=== PATIENT | female | born 1990 | race Caucasian/White ===

== ENCOUNTER → 2018-01-19 08:00 | Outpatient (CLI) | payer OTHER, SELFPAY | PROVIDERS: Visit Provider Physician Assistant Surgical | DX: J02.9 Acute pharyngitis, unspecified (principal) | CPT/HCPCS: 87081 ==

== ENCOUNTER → 2018-02-13 16:44 | Outpatient (CLI) | payer OTHER, SELFPAY ==
[2018-02-13 17:59] LABS: Absolute Lymphocyte Count 2.53 X10^3/ul (0.83-4.51); Absolute Neutrophil Count 6.3 X10^3/uL (2.0-7.7); Basophil# 0.03 X10^3/uL; Basophil% 0.3 % (0-1); Eosinophil# 0.05 X10^3/uL; Eosinophils% 0.5 % (0-5); Hematocrit 36.2 % (37-47); Hemoglobin 12.3 g/dl (12.0-15.0); Lymphocyte # 2.53 X10^3/ul (4.0); Lymphocyte % 25.9 % (19-41); Mean Corpuscular Hgb 30.7 pg (27.0-32.0); Mean Corpuscular Volume 90.3 fL (81-99); Mean Platelet Vol. 10.8 fl (6.2-12.0); Monocyte# 0.82 X10^3/uL; Monocyte% 8.4 % (0-10); Neutrophil # 6.29 X10^3/uL (2.7-7.7); Neutrophil % 64.6 % (47-70); Platelet Count 310 K/mm3 (150-450); RBC Distribution Width CV 12.7 % (11.6-14.6); RBC Distribution Width SD 41.1 fl (35.1-43.9); Red Blood Count 4.01 M/mm3 (4.2-5.4); White Blood Count 9.8 K/mm3 (4.4-11.0)
[2018-02-13 18:02] LABS: POSITIVE COUNT NO; POSITIVE DIFFERENTIAL NO; POSITIVE MORPHOLOGY NO
[2018-02-13 19:32] LABS: HIV - WCH Non-Reactive (Nonreactive); Rubella IgG 238.9 IU/mL
[2018-02-20 09:09] LABS: Rapid Plasmin Reagin (RPR) NONREACTIVE (NONREACTIVE)
[2018-02-23 11:57] LABS: HEPATITIS B SURFACE AG Negative (Negative)
== END ==
PROVIDERS: Family Provider Family Medicine; PCP Family Medicine; Visit Provider Obstetrics & Gynecology
DX: Z34.01 Encounter for supervision of normal first pregnancy, first trimester (principal)
CPT/HCPCS: 36415; 85025; 86592; 86703; 86762; 86850; 86900; 87340

== ENCOUNTER → 2018-02-13 18:33 | Outpatient (CLI) | payer OTHER, SELFPAY ==
[2018-02-13 20:36] LABS: Chlamydia Trachomatis by PCR Negative (Negative); Neisserai gonorrhoeae by PCR Negative (Negative); Probe Check PASS; Sample Adequacy Control PASS; Specimen Processing Control PASS
[2018-02-26 13:24] LABS: HPV Reflexed? NOT INDICATED
== END ==
PROVIDERS: Visit Provider Obstetrics & Gynecology
DX: Z34.01 Encounter for supervision of normal first pregnancy, first trimester (principal); Z12.4 Encounter for screening for malignant neoplasm of cervix
CPT/HCPCS: 87086; 87088; 87491; 87591; 88175; G0145

== ENCOUNTER → 2018-03-05 12:45 | Outpatient (CLI) | payer OTHER, SELFPAY | PROVIDERS: Family Provider Family Medicine; PCP Family Medicine | DX: Z36.82 Encounter for antenatal screening for nuchal translucency (principal) | CPT/HCPCS: 36415 ==

== ENCOUNTER → 2018-03-30 12:40 | Outpatient (CLI) | payer OTHER, SELFPAY | PROVIDERS: Family Provider Family Medicine; PCP Family Medicine | DX: Z36.89 Encounter for other specified antenatal screening (principal) | CPT/HCPCS: 36415 ==

== ENCOUNTER → 2018-06-26 09:31 | Outpatient (CLI) | payer OTHER, SELFPAY ==
[2018-06-26 10:30] LABS: Absolute Lymphocyte Count 1.49 X10^3/ul (0.83-4.51); Absolute Neutrophil Count 4.7 X10^3/uL (2.0-7.7); Basophil# 0.01 X10^3/uL; Basophil% 0.1 % (0-1); Eosinophil# 0.07 X10^3/uL; Hematocrit 28.6 % (37-47); Hemoglobin 9.3 g/dl (12.0-15.0); Lymphocyte # 1.49 X10^3/ul (4.0); Lymphocyte % 21.4 % (19-41); Mean Corp Hgb Conc 32.5 g/gl (32-36); Mean Corpuscular Hgb 29.6 pg (27.0-32.0); Mean Corpuscular Volume 91.1 fL (81-99); Mean Platelet Vol. 10.7 fl (6.2-12.0); Monocyte# 0.63 X10^3/uL; Neutrophil # 4.69 X10^3/uL (2.7-7.7); Neutrophil % 67.4 % (47-70); Platelet Count 234 K/mm3 (150-450); RBC Distribution Width CV 13.1 % (11.6-14.6); RBC Distribution Width SD 42.4 fl (35.1-43.9); Red Blood Count 3.14 M/mm3 (4.2-5.4)
[2018-06-26 10:32] LABS: POSITIVE COUNT NO; POSITIVE DIFFERENTIAL NO; POSITIVE MORPHOLOGY NO
[2018-06-26 10:59] LABS: Glucose Challenge Gest 1H 50g 130 mg/dL (70-140)
== END ==
PROVIDERS: Family Provider Family Medicine; PCP Family Medicine; Referring Provider Obstetrics & Gynecology; Visit Provider Obstetrics & Gynecology
DX: Z34.90 Encounter for supervision of normal pregnancy, unspecified, unspecified trimester (principal)
CPT/HCPCS: 36415; 82950; 85025

== ENCOUNTER → 2018-07-29 08:58 | Outpatient (CLI) | payer OTHER, SELFPAY ==
--- NOTE | 2018-07-29 08:59 | US_ITS ---
STUDY: ABDOMINAL ULTRASOUND - RIGHT UPPER QUADRANT REASON FOR VISIT: Female, 28 years old. Right upper quadrant pain. TECHNIQUE: Ultrasound evaluation of the right upper quadrant was performed with real-time and static borja-scale imaging. TECHNICAL QUALITY: Adequate. COMPARISON: None. FINDINGS: Liver: The liver measures 13.3 cm. There is normal echogenicity of the liver. The bile ducts are within normal limits. There is hepatic color flow. The direction of portal flow is hepatopetal. There is no demonstrated mass lesion. Gallbladder: Normal distended gallbladder. The gallbladder wall measures 3 mm. There is a negative sonographic Bush's sign. There is no pericholecystic fluid. There are no gallstones. Common Bile Duct (C.B.D.): The common bile duct measures 3 mm. Pancreas: Normal size of the head, body and tail of the pancreas. There is normal echogenicity of the pancreas. There is no demonstrated pancreatic mass or cyst. Right Kidney: Normal size of the right kidney. The right kidney measures 12.7 cm. Normal renal cortex. There is no demonstrated renal mass or cyst. There is no right hydronephrosis. US/Gallbladder IMPRESSION: Normal right upper quadrant ultrasound examination. Electronically Signed: Irwin Rodriguez, at 23:54 EST Tel , Service support ,
== END ==
PROVIDERS: Family Provider Family Medicine; PCP Family Medicine; Referring Provider Obstetrics & Gynecology; Visit Provider Obstetrics & Gynecology
DX: O26.899 Other specified pregnancy related conditions, unspecified trimester (principal); R10.11 Right upper quadrant pain; Z3A.00 Weeks of gestation of pregnancy not specified
CPT/HCPCS: 76705

== ENCOUNTER 2018-08-15 19:40 | Outpatient (CLI) | payer OTHER, SELFPAY ==
[2018-08-05 10:05] VITALS: BMI 27.6
[2018-08-15 20:16] LABS: Hematocrit 32.1 % (37-47); Hemoglobin 10.3 g/dl (12.0-15.0); Mean Corp Hgb Conc 32.1 g/gl (32-36); Mean Corpuscular Hgb 28.8 pg (27.0-32.0); Mean Corpuscular Volume 89.7 fL (81-99); Mean Platelet Vol. 10.9 fl (6.2-12.0); Platelet Count 281 K/mm3 (150-450); RBC Distribution Width CV 14.3 % (11.6-14.6); RBC Distribution Width SD 45.3 fl (35.1-43.9); Red Blood Count 3.58 M/mm3 (4.2-5.4); White Blood Count 10.4 K/mm3 (4.4-11.0)
[2018-08-15 20:18] LABS: Scan Indicated on CBC? Y/N NO
[2018-08-15 20:25] LABS: Prothrombin Time (Protime)PT. 13.1 SECONDS (11.7-14.9)
[2018-08-15 20:26] LABS: Partial Thromboplast Time 31.7 Seconds (24.1-36.2)
[2018-08-15 20:31] LABS: AST(SGOT) 12 U/L (15-37); Alanine Aminotransfer ALT/SGPT 13 U/L (13-56); Creatinine, Serum 0.51 mg/dL (0.55-1.02); EST Glomerular Filtration Rate 154 mL/min (>60); Est Glom Filt Rate - Afr Amer 186 mL/min (>60); Uric Acid 3.2 mg/dL (2.6-6.0)
[2018-08-15 20:39] VITALS: BMI 28.1
[2018-08-15 20:54] LABS: Protein, Urine (Random) < 6.0 mg/dL (<11.9)
--- NOTE | 2018-08-16 10:31 | OB.TRI.NOTE ---
- Problem List (1) Elevated blood pressure affecting in third trimester, antepartum Status: Acute History of Present Illness Date of Service: 08/16/18 Was patient seen by the physician?: No Reason For Visit: R/O LABOR Date of Service: 08/15/18 History of Present Illness: patient presented with elevated bp at home and some nausea and just hasn't felt right Allergies No Known Allergies Allergy (Verified 08/05/18 10:06) - Pertinent Past Medical History Medical History: Past Medical History (Last Reviewed 08/05/18 @ 10:06 by Mavis Hawley) D & C miscarraige Vertebral artery dissection Laboratory Studies: Laboratory Tests 08/15/18 08/15/18 08/15/18 Range/Units 20:10 20:00 20:00 WBC (4.4-11.0) K/mm3 RBC (4.2-5.4) M/mm3 Hgb (12.0-15.0) g/dl Hct (37-47) % MCV (81-99) fL MCH (27.0-32.0) pg MCHC (32-36) g/gl RDW (11.6-14.6) % RDW Differential (35.1-43.9) fl Plt Count (150-450) K/mm3 MPV (6.2-12.0) fl PT 13.1 (11.7-14.9) SECONDS INR 1.0 APTT 31.7 (24.1-36.2) Seconds Creatinine 0.51 L (0.55-1.02) mg/dL Est GFR (MDRD) Af Amer 186 (>60) mL/min Est GFR (MDRD) Non-Af 154 (>60) mL/min Uric Acid 3.2 (2.6-6.0) mg/dL AST 12 L (15-37) U/L ALT 13 (13-56) U/L U Random Total Protein < 6.0 (<11.9) mg/dL Urine Creatinine 19.40 (NO RANGE EST.) mg/dL Protein/Creatinin Ratio TNP 08/15/18 Range/Units 20:00 WBC 10.4 (4.4-11.0) K/mm3 RBC 3.58 L (4.2-5.4) M/mm3 Hgb 10.3 L (12.0-15.0) g/dl Hct 32.1 L (37-47) % MCV 89.7 (81-99) fL MCH 28.8 (27.0-32.0) pg MCHC 32.1 (32-36) g/gl RDW 14.3 (11.6-14.6) % RDW Differential 45.3 H (35.1-43.9) fl Plt Count 281 (150-450) K/mm3 MPV 10.9 (6.2-12.0) fl PT (11.7-14.9) SECONDS INR APTT (24.1-36.2) Seconds Creatinine (0.55-1.02) mg/dL Est GFR (MDRD) Af Amer (>60) mL/min Est GFR (MDRD) Non-Af (>60) mL/min Uric Acid (2.6-6.0) mg/dL AST (15-37) U/L ALT (13-56) U/L U Random Total Protein (<11.9) mg/dL Urine Creatinine (NO RANGE EST.) mg/dL Protein/Creatinin Ratio NST - FHR Rate Baby A Baseline: 150 Variability:: Moderate Accelerations:: 15 x 15 Decelerations:: None NST Reactive:: Yes FHR Category:: Category I Uterine Activity:: no regular ctx Impression/Plan 28 yo 36 weeks with elevated bp at home- normal here and normal pree labs and negative proteinuria dc home pree precautions fu in office
--- OUTSIDE RECORDS SUMMARY | 2018-10-09 21:48 | XMS RPT_ITS ---
:1990 Author Organization OHIP Support Name Relationship Address Phone RONAL PÉREZLENE Unavailable [address] + [place] [address] TIM SHAU Unavailable [address] + [address] [place] [address] [employer] Unavailable [address] + [place] [address] PÉREZ, TIANA Unavailable [address] + [place] [address] TIM SAHU Unavailable [address] + [address] [place] [address] [employer] Unavailable [address] + [place] [address] PÉREZ, TIANA Unavailable [address] + [place] [address] TIM SAHU Unavailable [address] + [address] [place] [address] [employer] Unavailable [address] + [place] [address] PÉREZ, TIANA Unavailable [address] + [place] [address] TIM SAHU Unavailable [address] + [address] [place] [address] [employer] Unavailable [address] + [place] [address] PÉREZ, TIANA Unavailable [address] + [place] [address] TIM SAHU Unavailable [address] + [address] [place] [address] [employer] Unavailable [address] + [place] [address] PÉREZ, TIANA Unavailable [address] + [place] [address] TIM SAHU Unavailable [address] + [address] [place] [address] [employer] Unavailable [address] + [place] [address] PÉREZ, TIANA Unavailable [address] + [place] [address] TIM SAHU Unavailable [address] + [address] [place] [address] [employer] Unavailable [address] + [place] [address] PÉREZ, TIANA Unavailable [address] + [place] [address] SARAH SAHU Unavailable [address] + [address] [place] [address] [employer] Unavailable [address] + [place] [address] PÉREZ, TIANA Unavailable [address] + [place] [address] SARAH SAHU Unavailable [address] + [address] [place] [address] [employer] Unavailable [address] + [place] [address] PÉREZ, TIANA Unavailable [address] + [place] [address] SARAH SAHU Unavailable [address] + [address] [place] [address] [employer] Unavailable [address] + [place] [address] PÉREZ, TIANA Unavailable [address] + [place] [address] SARAH SAHU Unavailable [address] + [address] [place] [address] [employer] Unavailable [address] + [place] [address] SANIYA SAHU Unavailable [address] + [place] [address] SANIYA SAHU Unavailable [address] + [place] [address] PÉREZ, TIANA Unavailable [address] + [place] [address] SARAH SAHU Unavailable [address] + [address] [place] [address] [employer] Unavailable [address] + [place] [address] PÉREZ, TIANA Unavailable [address] + [place] [address] SARAH SAHU Unavailable [address] + [address] [place] [address] [employer] Unavailable [address] + [place] [address] SANIYA SAHU Unavailable [address] + [place] [address] SANIYA SAHU Unavailable [address] + [place] [address] PÉREZ, TIANA Unavailable [address] + [place] [address] SARAH SAHU Unavailable [address] + [address] [place] [address] [employer] Unavailable [address] + [place] [address] PÉREZ, TIANA Unavailable [address] + [place] [address] SARAH SAHU Unavailable [address] + [address] [place] [address] [employer] Unavailable [address] + [place] [address] PÉREZ, TIANA Unavailable [address] + [place] [address] SARAH SAHU Unavailable [address] + [address] [place] [address] [employer] Unavailable [address] + [place] [address] PÉREZ, TIANA Unavailable [address] + [place] [address] SARAH SAHU Unavailable [address] + [address] [place] [address] [employer] Unavailable [address] + [place] [address] PÉREZ, TIANA Unavailable [address] + [place] [address] SARAH SAHU Unavailable [address] + [address] [place] [address] [employer] Unavailable [address] + [place] [address] PÉREZ, TIANA Unavailable [address] + [place] [address] SARAH SAHU Unavailable [address] + [address] [place] [address] [employer] Unavailable [address] + [place] [address] PÉREZ, TIANA Unavailable [address] + [place] [address] SARAH SAHU Unavailable [address] + [address] [place] [address] [employer] Unavailable [address] + [place] [address] PÉREZ, TIANA Unavailable [address] + [place] [address] SARAH SAHU Unavailable [address] + [address] [place] [address] [employer] Unavailable [address] + [place] [address] PÉREZ, TIANA Unavailable [address] + [place] [address] MICHAEL SAHUSUHA Unavailable [address] + [address] [place] [address] [employer] Unavailable [address] + [place] [address] PÉREZ, TIANA Unavailable [address] + [place] [address] SARAH SAHU Unavailable [address] + [address] [place] [address] [employer] Unavailable [address] + [place] [address] PÉREZ, TIANA Unavailable [address] + [place] [address] SARAH SAHU Unavailable [address] + [address] [place] [address] [employer] Unavailable [address] + [place] [address] PÉREZ, TIANA Unavailable [address] + [place] [address] MICHAEL SAHUSUHA Unavailable [address] + [address] [place] [address] [employer] Unavailable [address] + [place] [address] PÉREZ, TIANA Unavailable [address] + [place] [address] SARAH SAHU Unavailable [address] + [address] [place] [address] [employer] Unavailable [address] + [place] [address] Care Team Providers Name Role Phone YULI JETER Attending Unavailable FLOWER CAAL Referring Unavailable NO PRIMARY CARE, Primary Care Unavailable YULI JETER Attending Unavailable FLOWER CAAL Referring Unavailable NO PRIMARY CARE, Primary Care Unavailable YULI JETER Attending Unavailable FLOWER CAAL Referring Unavailable NO PRIMARY CARE, Primary Care Unavailable BARRERA العراقي Attending Unavailable FLOWER CAAL Referring Unavailable NO PRIMARY CARE, Primary Care Unavailable BARRERA العراقي Attending Unavailable FLOWER CAAL Referring Unavailable NO PRIMARY CARE, Primary Care Unavailable PODLOGARELISA (SUGAR CANE PLANTER MACHINE OPERATOR) Attending Unavailable SHORTY TINEO (ROBOTICS ENGINEER) Attending Unavailable PODLOGELISA WATSON (SUGAR CANE PLANTER MACHINE OPERATOR) Referring Unavailable SHORTY TINEO (ROBOTICS ENGINEER) Attending Unavailable SHORTY TINEO (ROBOTICS ENGINEER) Referring Unavailable KATZAN KAROLINA Brandon Referring Unavailable KATZANKAROLINA Attending Unavailable KATZAN KAROLINA L Referring Unavailable Claudette Valentine Attending Unavailable Cebul III, Jono Referring Unavailable Flower Caal Attending Unavailable Cebul III, Jono Referring Unavailable Cebul III, Jono Primary Care Unavailable Flower Caal Attending Unavailable Cebul III, Jono Referring Unavailable Irwin Delong Attending Unavailable Cebul III, Jono Referring Unavailable Cebul III, Jono Primary Care Unavailable Rey Olson Attending Unavailable Rey Olson Referring Unavailable Thuan Madrid NP-C Attending Unavailable Cebul III, Jono Referring Unavailable Cebul III, Jono Primary Care Unavailable Flower Caal Attending Unavailable Cebul III, Jono Referring Unavailable Cebul III, Jono Primary Care Unavailable Flower Caal Attending Unavailable Cebul III, Jono Referring Unavailable Cebul III, Jono Primary Care Unavailable Flower Caal Attending Unavailable Flower Caal Referring Unavailable Cebul III, Jono Primary Care Unavailable Flower Caal Attending Unavailable Flower Caal Referring Unavailable Marietta Mobley Attending Unavailable Marietta Mobley Referring Unavailable Cebul III, Jono Primary Care Unavailable Claudette Valentine Attending Unavailable Cebul III, Jono Referring Unavailable Cebul III, Jono Primary Care Unavailable Mobley, Marietta Attending Unavailable Mobley, Marietta Referring Unavailable Cebul III, Jono Primary Care Unavailable Marcanthony, Flower Attending Unavailable Cebul III, Jono Referring Unavailable Marcanthony, Flower Attending Unavailable Cebul III, Jono Referring Unavailable Cebul III, Jono Primary Care Unavailable Marcanthony, Flower Attending Unavailable Cebul III, Jono Referring Unavailable Cebul III, Jono Primary Care Unavailable Marcanthony, Flower Attending Unavailable Cebul III, Jono Referring Unavailable Marcanthony, Flower Attending Unavailable Marcanthony, Flower Referring Unavailable Cebul III, Jono Primary Care Unavailable Marcanthony, Flower Attending Unavailable Cebul III, Jono Referring Unavailable [place], Claudette Attending Unavailable Cebul III, Jono Referring Unavailable Marcanthony, Flower Attending Unavailable Marcanthony, Flower Referring Unavailable Cebul III, Jono Primary Care Unavailable Meme, Claudette Attending Unavailable Cebul III, Jono Referring Unavailable Marcanthony, Flower Attending Unavailable Marcanthony, Flower Referring Unavailable Cebul III, Jono Primary Care Unavailable Marcanthony, Flower Attending Unavailable Marcanthony, Flower Referring Unavailable Cebul III, Jono Primary Care Unavailable Marcanthony, Flower Consulting Unavailable Marcanthony, Flower Attending Unavailable Cebul III, Jono Referring Unavailable Marcanthony, Flower Attending Unavailable Cebul III, Jono Primary Care Unavailable Marcanthony, Flower Referring Unavailable PROBLEMS PROBLEMS DATE TYPE CONDITION / CODE ATTENDING STATUS SOURCE 08/21/2018 Unknown I77.74 - Marcanthony, Active [place] 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 / Hospital I77.74(ICD-10) Repository 08/21/2018 Unknown Z36.9 - Encounter Marcanthony, Active [place] for [facility] screening, [facility] unspecified / Repository Z36.9(ICD-10) 08/21/2018 Unknown Z34.90 - Encounter Marcanthony, Active [place] for supervision of [facility] normal , Hospital unspecified, Repository unspecified trimester / Z34.90(ICD-10) 08/21/2018 Unknown Z34.03 - Encounter Marcanthony, Active [place] for supervision of [facility] normal first Hospital , third Repository trimester / Z34.03(ICD-10) 08/21/2018 Unknown G93.0 - Cerebral Marcanthony, Active [place] cysts / [facility] G93.0(ICD-10) Hospital Repository 08/21/2018 Unknown O99.013 - Anemia Marcanthjennifer, Active [place] complicating [facility] , third Hospital trimester / Repository O99.013(ICD-10) 08/21/2018 Unknown Z3A.34 - 34 weeks Daranthjennifer, Active [place] gestation of [facility] / Hospital Z3A.34(ICD-10) Repository 07/09/2018 Unknown Z3A.32 - 32 weeks aDranthjennifer, Active [place] gestation of [facility] / Hospital Z3A.32(ICD-10) Repository 07/09/2018 Unknown Z23 - Encounter Marcanthjennifer, Active [place] for immunization / [facility] Z23(ICD-10) Hospital Repository 03/04/2013 Active Dissection of NA Active [facility] vertebral artery / [facility] [place] I77.74(ICD-10) Repository 05/28/2018 Unknown Z34.02 - Encounter Matthew, Active [place] for supervision of [facility] normal first Hospital , second Repository trimester / Z34.02(ICD-10) 04/09/2018 Unknown Z34.01 - Encounter Matthew, Active [place] for supervision of [facility] normal first Hospital , first Repository trimester / Z34.01(ICD-10) 04/30/2018 Unknown Z36.89 - Encounter Itz, Active [place] for other [facility] specified Hospital Repository screening / Z36.89(ICD-10) 03/17/2018 Unknown Z36.82 - Encounter Itz, Active [place] for [facility] screening for Hospital nuchal Repository translucency / Z36.82(ICD-10) 01/24/2018 Unknown J02.9 - Acute Madrid, Thuan Active [place] pharyngitis, ROBOTICS ENGINEER-C Community unspecified / Hospital J02.9(ICD-10) Repository 01/24/2018 Unknown J06.9 - Acute Madrid, Thaun Active [place] upper respiratory ROBOTICS ENGINEER-C Community infection, Hospital unspecified / Repository J06.9(ICD-10) PROCEDURES PROCEDURES No Procedure Records FoundRESULTS RESULTS PEDIATRIC ASSISTANT OFFICE VISIT Observed: 08/28/2018 Status: F Source: [place] REPORT 9:16 AM [facility] REPOSITORY [facility] [address] [place] [address] OFFICE VISIT Date of Service: 08/28/18 MR#: [id number] Acct: [id number] Name: SANIYA SAHU Rep #: [id number] : 1990 Provider: JAEL Valentine Age/Sex: 28/F Location[place] [facility] [place] Status: Signed Intake Vital Signs08/28/18 Height 5 ft 3 in 08/28/18 Weight: 186 lb 08/28/18 Body Mass Index (BMI) 32.9 08/28/18 Blood Pressure 124/80 H 08/28/18 Body Mass Index (BMI) 28.1 Intake Visit Reasons: 37 weeks Chief Complaint: est ob Ventilation Worker Required: No Is patient in pain?: No Allergies No Known Allergies Allergy (Verified 08/28/18 08:16) Medications lactobacillus combination no.8 3 billion cell capsule 3,000 mmu cells PO QDAY 02/13/18 [History Confirmed 08/28/18] vitamin,calcium,naulosml-wujt-xtdus acid tablet 1 tab PO QDAY 02/13/18 [History Confirmed 08/28/18] aspirin 81 mg chewable tablet 81 mg PO DAILY 05/08/18 [History Confirmed 08/28/18] Last Menstral Period: 12/06/17 Zika: Zika virus screening: Negative : No PFSH PFSH Medical History (Acute) Vertebral artery dissection (Acute) Surgical History H/O dilation and curettage (Acute) Family History Mother Parkinson disease Social History Smoking Status: Never smoker alcohol intake: never substance use type: does not use caffeine: Yes what type of physical activity do you participate in: walking, running frequency: 1-2 times per week seatbelt use: always do you feel safe at home: Yes additional social history: Spouse Tim Pregancy History 2 Elective abortions Hx Para 0 Spontaneous abortions 1 HPI 37 weeks: Details: SANIYA SAHU is a 28 year old who presents for routine OB visit. OB Visit LÁZARO Calculator Estimated Delivery Date 09/12/18 Based on LMP (certain) 12/06/17 Current WG 37w 6d Number 1 Expected Delivery Route/Plan Specific Issue/Plans flu vaccine: given minichart given: yes tdap vaccine: given rhogam: na LARC form signed: declines labor support person: Meño pain management: epidural cut cord/dad catch: yes : yes PP control planned: [] special requests: [] Initial Weight: 155 lb Date Weight BP Urine PrFHR FuHt Pres MoCTX DilationFetal StVisit NoProviderComments E ot v te [place] G Effac lucose ed Visit Notes Visit Date: 08/28/18 No VB, LOF. No reg CTX. OSVALDO Ellington on 08/28/18 Visit Date: 08/21/18 no vb lof good fm no regular ctx Flower Caal MD on 08/21/18 Visit Date: 08/05/18 Doing well. No VB, LOF OSVALDO [place] on 08/05/18 Visit Date: 07/24/18 Doing well. NO VB, LOF. OSVALDO [place] on 07/24/18 Visit Date: 07/09/18 no vb lof good fm no regular ctx Flower Caal MD on 07/09/18 Visit Date: 06/26/18 no vb lof good fm no regualr ctx. will get flu vaccine next time. Flower Caal MD on 06/26/18 Visit Date: 05/28/18 no vb cramping- obtain us results Flower Caal MD on 05/28/18 Visit Date: 05/08/18 no vb lof good fm s/p mfm consult and recommend shortened second stage Flower Caal MD on 05/08/18 Visit Date: 04/09/18 no vb cramping Flower Caal MD on 04/09/18 Visit Date: 03/13/18 Nausea improved. No VB, LOF. OSVALDO [place] on 03/13/18 Visit Date: 02/13/18 No visit notes to display ACOG First Trimester First Trimester: Discussed Diagnostics Diagnostics Labs Hct 32.1 % (37-47) L 08/15/18 Hgb 10.3 g/dl (12.0-15.0) L 08/15/18 Glucose 1 Hr 50 gm 130 mg/dL (70-140) 06/26/18 Details: HIV: Urine Culture: Sequential Screen: NIPT Screen: Results [id number] Office Urine Glucose Negative Last Edit by Mavis Hawley on 08/28/18 08:17 Office Urine Protein Trace Last Edit by Mavis Hawley on 08/28/18 08:17 Assessment AND Plan Problems 1. Encounter for supervision of normal first in third trimester Z34.03 PRR LÁZARO 09/12/18 Meño 2. 37 weeks gestation of Z3A.37 sequential screen negative. carrier screening negative. anatomy scan negative. 3. Anemia affecting in third trimester O99.013 4. Choroid plexus cyst G93.0 5. screening encounter Z36.9 NT/Sequential screen: negative 6. 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 mfm consult- recommend laboring down and limit maternal pushing, proceed with VAVD NT normal 03/05/18 Plan Orders placed: none Reviewed of labor precautions, movement/kick counts ACOG trimester education reviewed and updated See problem list details for updated plan of care Gestational age appropriate handout given RTO: 1 week Orders Orders: Coding Level of Care Code OB Routine Diagnoses Encounter for supervision of normal first in third trimester Z34.03 Normal : normal first Trimester: third trimester 37 weeks gestation of Z3A.37 Weeks of gestation: 37 weeks Anemia affecting in third trimester O99.013 Trimester: third trimester Choroid plexus cyst G93.0 screening encounter Z36.9 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 [place] [address] OFFICE VISIT Date of Service: 08/21/18 MR#: [id number] Acct: [id number] Name: SANIYA SAHU Rep #: [id number] : 1990 Provider: Flower Caal MD Age/Sex: 28/F Location: [facility] [place] Status: Signed Intake Vital Signs08/21/18 Weight: 185 lb 9.6 oz 08/21/18 Body Mass Index (BMI) 28.1 08/21/18 Height 5 ft 3 in 08/21/18 Weight: 162 lb 08/21/18 Body Mass Index (BMI) 28.7 08/21/18 Blood Pressure 104/62 Intake Visit Reasons: 36 weeks Chief Complaint: est ob Ventilation Worker Required: No Is patient in pain?: No Allergies No Known Allergies Allergy (Verified 08/21/18 08:47) Medications lactobacillus combination no.8 3 billion cell capsule 3,000 mmu cells PO QDAY 02/13/18 [History Confirmed 08/21/18] vitamin,calcium,zaoubvqh-wqmj-bzutd acid tablet 1 tab PO QDAY 02/13/18 [History Confirmed 08/21/18] promethazine 12.5 mg tablet 12.5 mg PO Q6H PRN 02/13/18 [History Confirmed 08/21/18] aspirin 81 mg chewable tablet 81 mg PO DAILY 05/08/18 [History Confirmed 08/21/18] Last Menstral Period: 12/06/17 Zika: Zika virus screening: Negative : No PFSH PFSH Medical History (Acute) Vertebral artery dissection (Acute) Surgical History H/O dilation and curettage (Acute) Family History Mother Parkinson disease Social History Smoking Status: Never smoker alcohol intake: never substance use type: does not use caffeine: Yes what type of physical activity do you participate in: walking, running frequency: 1-2 times per week seatbelt use: always do you feel safe at home: Yes additional social history: Spouse Tim Pregancy History 2 Elective abortions Hx Para 0 Spontaneous abortions 1 HPI 36 weeks: Details: SANIYA SAHU is a 28 year old who presents for routine OB visit. OB Visit LÁZARO Calculator Estimated Delivery Date 09/12/18 Based on LMP (certain) 12/06/17 Current WG 36w 6d Number 1 Expected Delivery Route/Plan Specific Issue/Plans flu vaccine: given minichart given: yes tdap vaccine: given rhogam: na LARC form signed: ryan labor support person: Meño pain management: epidural cut cord/dad catch: yes : yes PP control planned: [] special requests: [] Initial Weight: 155 lb Date Weight BP Urine PrFHR FuHt Pres MoCTX DilationFetal StVisit NoProviderComments E ot v te [place] G Effac lucose ed Visit Notes Visit Date: 08/21/18 no vb lof good fm no regular ctx Flower Caal MD on 08/21/18 Visit Date: 08/05/18 Doing well. No VB, LOF OSVALDO Ellington on 08/05/18 Visit Date: 07/24/18 Doing well. NO VB, LOF. OSVALDO Ellington on 07/24/18 Visit Date: 07/09/18 no vb lof good fm no regular ctx lFower Caal MD on 07/09/18 Visit Date: 06/26/18 no vb lof good fm no regualr ctx. will get flu vaccine next time. Flower Caal MD on 06/26/18 Visit Date: 05/28/18 no vb cramping- obtain us results Flower Caal MD on 05/28/18 Visit Date: 05/08/18 no vb lof good fm s/p mfm consult and recommend shortened second stage Flower Caal MD on 05/08/18 Visit Date: 04/09/18 no vb cramping Flower Caal MD on 04/09/18 Visit Date: 03/13/18 Nausea improved. No VB, LOF. OSVALDO Ellington on 03/13/18 Visit Date: 02/13/18 No visit notes to display ACOG First Trimester First Trimester: Discussed Diagnostics Diagnostics Labs Hct 32.1 % (37-47) L 08/15/18 Hgb 10.3 g/dl (12.0-15.0) L 08/15/18 Glucose 1 Hr 50 gm 130 mg/dL (70-140) 06/26/18 Miscellaneous Test 03/30/18 Details: HIV: Urine Culture: Sequential Screen: NIPT Screen: Results [id number] Office Urine Glucose Negative Last Edit by Mavis Hawely on 08/21/18 08:54 Office Urine Protein Negative Last Edit by Mavis Hawley on 08/21/18 08:54 Assessment AND Plan Problems 1. Choroid plexus cyst G93.0 2. Anemia affecting in third trimester O99.013 3. 34 weeks gestation of Z3A.34 sequential screen negative. carrier screening negative. anatomy scan negative. 4. screening encounter Z36.9 NT/Sequential screen: negative 5. 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 Encounter for supervision of normal first in third trimester Z34.03 PRR LÁZARO 09/12/18 Meño Plan movement and labor precautions reviewed. ACOG trimester education reviewed and updated. see problem list details for updated plan management information and see below for orders placed at this visit. [place] appropriate handout given. 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 Performed By: #### M100.1800 #### [facility] [address] [place], [address] PROTEIN+CREATININE Collected: Status: F Source: [place] RATIO,URINE 08/15/2018 8:10 PM [facility] REPOSITORY TYPE CODE TESTS RESULT OUT OF RANGE REFERENCE UNITS LAB L501.1200 NO RANGE EST. mg/dL 19.40 Normal UR CREAT LAB L501.1930 <11.9 mg/dL < 6.0 Normal PROTEIN,UR. RAN. LAB L501.1940 0-200 mg/g CRE Test Normal not performed PROT:CRE RATIO Performed By: #### L501.0900 #### [facility] [address] [place], [address] CBC-COMPLETE BLOOD CNT Collected: 08/15/2018 Status: F Source: [place] NO DIFF 8:00 PM [facility] REPOSITORY TYPE CODE TESTS RESULT OUT OF RANGE REFERENCE UNITS LAB L100.1000 4.4-11.0 K/mm3 Normal WBC 10.4 LAB L100.1200 4.2-5.4 M/mm3 Low RBC 3.58 LAB L100.1300 12.0-15.0 g/dl Low HGB 10.3 LAB L100.1400 37-47 % Low HCT 32.1 LAB L100.1500 81-99 fL Normal MCV 89.7 LAB L100.1600 27.0-32.0 pg Normal MCH 28.8 LAB L100.1700 32-36 g/gl Normal MCHC 32.1 LAB L100.1810 11.6-14.6 % Normal RDW CV 14.3 LAB L100.1820 35.1-43.9 fl High RDW SD 45.3 LAB L100.1900 150-450 K/mm3 Normal PLT 281 LAB L100.2000 6.2-12.0 fl Normal MPV 10.9 Performed By: #### L100.0500 #### [facility] [address] [place], [address] PROTHROMBIN TIME W/INR Collected: 08/15/2018 Status: F Source: [place] 8:00 PM [facility] REPOSITORY TYPE CODE TESTS RESULT OUT OF RANGE REFERENCE UNITS LAB L300.4150 11.7-14.9 SECONDS Normal PROTIME 13.1 LAB L300.4200 Normal INR 1.0 Performed By: #### L300.3900, L300.4310 #### [facility] [address] [place], [address] PARTIAL THROMBOPLAST Collected: 08/15/2018 Status: F Source: [place] TIME 8:00 PM [facility] REPOSITORY TYPE CODE TESTS RESULT OUT OF RANGE REFERENCE UNITS LAB L300.4310 24.1-36.2 Seconds Normal PTT 31.7 Performed By: #### L300.3900, L300.4310 #### [facility] [address] [place], [address] SERUM CREATININE AND Collected: 08/15/2018 Status: F Source: [place] GFR 8:00 PM [facility] REPOSITORY TYPE CODE TESTS RESULT OUT OF RANGE REFERENCE UNITS LAB L501.1100 0.55-1.02 mg/dL Low 0.51 CREAT,SERUM Result Comment: The validity of the calculated GFR AND GFRAA in patients over 70 years has not been determined. Clinical correlation is essential. LAB L501.1110 >60 mL/min Normal EST GFR 154 Result Comment: Non- GFR Calc LAB L501.1115 >60 mL/min Normal EST GFR - AA 186 Result Comment: GFR Calc Performed By: #### L501.1105, L501.1400, L501.4100, L501.4405 #### [facility] [address] [place], [address] URIC ACID Collected: 08/15/2018 Status: F Source: [place] 8:00 PM [facility] REPOSITORY TYPE CODE TESTS RESULT OUT OF RANGE REFERENCE UNITS LAB L501.1400 2.6-6.0 mg/dL Normal URIC 3.2 Result Comment: The drugs N-Acetylcysteine and Metamizole may falsely depress this assay. Performed By: #### L501.1105, L501.1400, L501.4100, L501.4405 #### [facility] [address] [place], [address] AST(SGOT) Collected: 08/15/2018 Status: F Source: [place] 8:00 PM [facility] REPOSITORY TYPE CODE TESTS RESULT OUT OF RANGE REFERENCE UNITS LAB L501.4100 15-37 U/L Low AST 12 Performed By: #### L501.1105, L501.1400, L501.4100, L501.4405 #### [facility] [address] [place], [address] ALANINE AMINOTRANSFERAS Collected: 08/15/2018 Status: F Source: [place] (SGPT) 8:00 PM [facility] REPOSITORY TYPE CODE TESTS RESULT OUT OF RANGE REFERENCE UNITS LAB L501.4405 13-56 U/L Normal ALT 13 Performed By: #### L501.1105, L501.1400, L501.4100, L501.4405 #### [facility] [address] [place], [place], [address] PEDIATRIC ASSISTANT OFFICE VISIT Observed: 08/05/2018 Status: F Source: [place] REPORT 10:17 AM [facility] REPOSITORY [facility] Emergency Department [address] [place] [address] OFFICE VISIT Date of Service: 08/05/18 MR#: [id number] Acct: [id number] Name: SANIYA SAHU Rep #: [id number] : 1990 Provider: JAEL Valentine Age/Sex: 28/F Location[place] [facility] [facility] [place] Status: Signed Intake Vital Signs08/05/18 Height 5 ft 8 in 08/05/18 Weight: 182 lb 08/05/18 Body Mass Index (BMI) 27.6 11/21/18 Blood Pressure 120/72 Intake Visit Reasons: 34 weeks Chief Complaint: est ob Ventilation Worker Required: No Is patient in pain?: No Allergies No Known Allergies Allergy (Verified 08/05/18 10:06) Medications lactobacillus combination no.8 3 billion cell capsule 3,000 mmu cells PO QDAY 02/13/18 [History Confirmed 08/05/18] vitamin,calcium,fotvujjt-dles-ngyud acid tablet 1 tab PO QDAY 02/13/18 [History Confirmed 08/05/18] promethazine 12.5 mg tablet 12.5 mg PO Q6H PRN 02/13/18 [History Confirmed 08/05/18] aspirin 81 mg chewable tablet 81 mg PO DAILY 05/08/18 [History Confirmed 08/05/18] Last Menstral Period: 12/06/17 Zika: Zika virus screening: Negative : No PFSH PFSH Medical History D AND C (Acute) (Acute) Vertebral artery dissection (Acute) Family History Mother Parkinson disease Social History Smoking Status: Never smoker alcohol intake: never substance use type: does not use caffeine: Yes what type of physical activity do you participate in: walking, running frequency: 1-2 times per week seatbelt use: always do you feel safe at home: Yes additional social history: Spouse Tim Pregancy History 2 Elective abortions Hx Para 0 Spontaneous abortions 1 HPI 34 weeks: Details: SANIYA SAHU is a 28 year old who presents for routine OB visit. OB Visit LÁZARO Calculator Estimated Delivery Date 09/12/18 Based on LMP (certain) 12/06/17 Current WG 34w 4d Number 1 Expected Delivery Route/Plan Specific Issue/Plans flu vaccine: given minichart given: yes tdap vaccine: given rhogam: na LARC form signed: ryan labor support person: Meño pain management: epidural cut cord/dad catch: yes : yes PP control planned: [] special requests: [] Initial Weight: 155 lb Date Weight BP Urine PrFHR FuHt Pres MoCTX DilationFetal StVisit NoProviderComments E ot v te GA G Effac lucose ed Visit Notes Visit Date: 08/05/18 Doing well. No VB, LOF OSVALDO Ellington on 08/05/18 Visit Date: 07/24/18 Doing well. NO VB, LOF. OSVALDO Ellington on 07/24/18 Visit Date: 07/09/18 no vb lof good fm no regular ctx Flower Caal MD on 07/09/18 Visit Date: 06/26/18 no vb lof good fm no regualr ctx. will get flu vaccine next time. Flower Caal MD on 06/26/18 Visit Date: 05/28/18 no vb cramping- obtain us results Flower Caal MD on 05/28/18 Visit Date: 05/08/18 no vb lof good fm s/p mfm consult and recommend shortened second stage Flower Caal MD on 05/08/18 Visit Date: 04/09/18 no vb cramping Flower Caal MD on 04/09/18 Visit Date: 03/13/18 Nausea improved. No VB, LOF. OSVALDO Ellington on 03/13/18 Visit Date: 02/13/18 No visit notes to display ACOG First Trimester First Trimester: Discussed Diagnostics Diagnostics Labs Blood Type A POSITIVE 02/13/18 Antibody Screen NEGATIVE 02/13/18 Hct 28.6 % (37-47) L 06/26/18 Hgb 9.3 g/dl (12.0-15.0) L 06/26/18 Rubella IgG Antibody 238.9 IU/mL 02/13/18 RPR NONREACTIVE (NONREACTIVE) 02/13/18 Hep Bs Antigen Negative (Negative) 02/13/18 Chlam trachomat DNA PCR Negative (Negative) 02/13/18 N.gonorrhoeae DNA (PCR) Negative (Negative) 02/13/18 Glucose 1 Hr 50 gm 130 mg/dL (70-140) 06/26/18 Miscellaneous Test 03/30/18 Details: HIV: Urine Culture: Sequential Screen: NIPT Screen: Results [id number] Office Urine Glucose Negative Last Edit by Mavis Hawley on 08/05/18 10:07 Office Urine Protein Negative Last Edit by Mavis Hawley on 08/05/18 10:07 Assessment AND Plan Problems 1. Encounter for supervision of normal first in third trimester Z34.03 PRR LÁZARO 09/12/18 Meño 2. 34 weeks gestation of Z3A.34 sequential screen negative. carrier screening negative. anatomy scan negative. 3. 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 mfm consult NT normal 03/05/18 4. screening encounter Z36.9 NT/Sequential screen: negative 5. Choroid plexus cyst G93.0 6. Anemia affecting in third trimester O99.013 Plan Orders placed: none Reviewed of labor precautions, movement/kick counts ACOG trimester education reviewed and updated See problem list details for updated plan of care Gestational age appropriate handout given RTO: 2 weeks Orders Orders: Coding Level of Care Code OB Routine Diagnoses Encounter for supervision of normal first in third trimester Z34.03 Normal : normal first Trimester: third trimester 34 weeks gestation of Z3A.34 Weeks of gestation: 34 weeks 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 screening encounter Z36.9 Choroid plexus cyst G93.0 Anemia affecting in third trimester O99.013 Trimester: third trimester 08/05/18 1017 <Electronically signed by Claudette RILEY> Date Claudette RILEY Cosigner Signature: Date (if applicable) CC: GALLBLADDER Observed: 07/29/2018 Status: F Source: [place] 8:59 AM [facility] REPOSITORY [facility] Services [address] [place] [address] Gallbladder MR#: [id number] Acct: [id number] Name: RUSSELLSANIYA L Rep #: [id number] : 1990 F 28 From: Irwin Rodriguez MD PCP: Jono Pearson III, MD Status: REG CLI Study: Gallbladder Date of Exam: 07/29/18 Exam# [id number] Ordering Dr: Claudette Valentine STUDY: ABDOMINAL ULTRASOUND - RIGHT UPPER QUADRANT REASON FOR VISIT: Female, 28 years old. Right upper quadrant pain. TECHNIQUE: Ultrasound evaluation of the right upper quadrant was performed with real-time and static borja-scale imaging. TECHNICAL QUALITY: Adequate. COMPARISON: None. FINDINGS: Liver: The liver measures 13.3 cm. There is normal echogenicity of the liver. The bile ducts are within normal limits. There is hepatic color flow. The direction of portal flow is hepatopetal. There is no demonstrated mass lesion. Gallbladder: Normal distended gallbladder. The gallbladder wall measures 3 mm. There is a negative sonographic Bush's sign. There is no pericholecystic fluid. There are no gallstones. Common Bile Duct (C.B.D.): The common bile duct measures 3 mm. Pancreas: Normal size of the head, body and tail of the pancreas. There is normal echogenicity of the pancreas. There is no demonstrated pancreatic mass or cyst. Right Kidney: Normal size of the right kidney. The right kidney measures 12.7 cm. Normal renal cortex. There is no demonstrated renal mass or cyst. There is no right hydronephrosis. US/Gallbladder IMPRESSION: Normal right upper quadrant ultrasound examination. Electronically Signed: Irwin Rodriguez, at 23:54 EST Tel , Service support , CC: JAEL Valentine; Jono Pearson III, MD Station Engineer: Signed PEDIATRIC ASSISTANT OFFICE VISIT Observed: 07/24/2018 Status: F Source: [place] REPORT 8:39 AM [facility] [address] [place] [address] OFFICE VISIT Date of Service: 07/24/18 MR#: [id number] Acct: [id number] Name: SANIYA SAHU #: [id number] : 1990 Provider: JAEL Valentine Age/Sex: 28/F Location: [facility] [place] Status: Signed Intake Vital Signs07/24/18 Height 5 ft 8 in 07/24/18 Weight: 176 lb 8 oz 07/24/18 Body Mass Index (BMI) 26.8 07/24/18 Blood Pressure 118/72 Intake Visit Reasons: 32 weeks Is patient in pain?: No Allergies No Known Allergies Allergy (Verified 07/24/18 08:24) Medications lactobacillus combination no.8 3 billion cell capsule 3,000 mmu cells PO QDAY 02/13/18 [History Confirmed 07/24/18] vitamin,calcium,wchloufm-jsjq-jfskn acid tablet 1 tab PO QDAY 02/13/18 [History Confirmed 07/24/18] promethazine 12.5 mg tablet 12.5 mg PO Q6H PRN 02/13/18 [History Confirmed 07/24/18] aspirin 81 mg chewable tablet 81 mg PO DAILY 05/08/18 [History Confirmed 07/24/18] Last Menstral Period: 12/06/17 Zika: Zika virus screening: Negative : No PFSH PFSH Medical History D AND C (Acute) (Acute) Vertebral artery dissection (Acute) Family History Mother Parkinson disease Social History Smoking Status: Never smoker alcohol intake: never substance use type: does not use caffeine: Yes what type of physical activity do you participate in: walking, running frequency: 1-2 times per week seatbelt use: always do you feel safe at home: Yes additional social history: Spouse Tim Pregancy History 2 Elective abortions Hx Para 0 Spontaneous abortions 1 HPI 32 weeks: Details: SANIYA SAHU is a 28 year old who presents for routine OB visit. OB Visit LÁZARO Calculator Estimated Delivery Date 09/12/18 Based on LMP (certain) 12/06/17 Current WG 32w 6d Number 1 Expected Delivery Route/Plan Specific Issue/Plans flu vaccine: given minichart given: yes tdap vaccine: given rhogam: na LARC form signed: declines labor support person: Meño pain management: epidural cut cord/dad catch: yes : yes PP control planned: [] special requests: [] Initial Weight: 155 lb Date Weight BP Urine PrFHR FuHt Pres MoCTX DilationFetal StVisit NoProviderComments E ot v te GA G Effac lucose ed Visit Notes Visit Date: 07/24/18 Doing well. NO VB, LOF. OSVALDO Ellington on 07/24/18 Visit Date: 07/09/18 no vb lof good fm no regular ctx Flower Caal MD on 07/09/18 Visit Date: 06/26/18 no vb lof good fm no regualr ctx. will get flu vaccine next time. Flower Caal MD on 06/26/18 Visit Date: 05/28/18 no vb cramping- obtain us results Flower Caal MD on 05/28/18 Visit Date: 05/08/18 no vb lof good fm s/p mfm consult and recommend shortened second stage Flower Caal MD on 05/08/18 Visit Date: 04/09/18 no vb cramping Flower Caal MD on 04/09/18 Visit Date: 03/13/18 Nausea improved. No VB, LOF. OSVALDO Ellington on 03/13/18 Visit Date: 02/13/18 No visit notes to display ACOG First Trimester First Trimester: Discussed Diagnostics Diagnostics Labs Blood Type A POSITIVE 02/13/18 Antibody Screen NEGATIVE 02/13/18 Hct 28.6 % (37-47) L 06/26/18 Hgb 9.3 g/dl (12.0-15.0) L 06/26/18 Rubella IgG Antibody 238.9 IU/mL 02/13/18 RPR NONREACTIVE (NONREACTIVE) 02/13/18 Hep Bs Antigen Negative (Negative) 02/13/18 Chlam trachomat DNA PCR Negative (Negative) 02/13/18 N.gonorrhoeae DNA (PCR) Negative (Negative) 02/13/18 Glucose 1 Hr 50 gm 130 mg/dL (70-140) 06/26/18 Miscellaneous Test 03/30/18 Details: HIV: Urine Culture: Sequential Screen: NIPT Screen: Results [id number] Office Urine Glucose Negative Last Edit by Arin Cote on 07/24/18 08:27 Office Urine Protein Negative Last Edit by Arin Cote on 07/24/18 08:27 Assessment AND Plan Problems 1. Encounter for supervision of normal first in third trimester Z34.03 PRR LÁZARO 09/12/18 Meño 2. 32 weeks gestation of Z3A.32 sequential screen negative. carrier screening negative. anatomy scan negative. 3. Anemia affecting in third trimester O99.013 4. Choroid plexus cyst G93.0 5. screening encounter Z36.9 NT/Sequential screen: negative 6. 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 mfm consult NT normal 03/05/18 Plan Orders placed: none Reviewed of labor precautions, movement/kick counts ACOG trimester education reviewed and updated See problem list details for updated plan of care Gestational age appropriate handout given RTO: 2 weeks Orders Orders: Coding Level of Care Code OB Routine Diagnoses Encounter for supervision of normal first in third trimester Z34.03 Normal : normal first Trimester: third trimester 32 weeks gestation of Z3A.32 Weeks of gestation: 32 weeks Anemia affecting in third trimester O99.013 Trimester: third trimester Choroid plexus cyst G93.0 screening encounter Z36.9 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 07/24/18 0839 <Electronically signed by Claudette RILEY> Date Claudette RILEY Cosigner Signature: Date (if applicable) CC: PEDIATRIC ASSISTANT OFFICE VISIT Observed: 07/09/2018 Status: F Source: [place] REPORT 9:51 AM [facility] [address] [place] [address] OFFICE VISIT Date of Service: 07/09/18 MR#: [id number] Acct: [id number] Name: SANIYA SAHU Rep #: [id number] : 1990 Provider: Flower Caal MD Age/Sex: 28/F Location[place] [facility] [place] [facility] [place] Status: Signed with Addenda ADDENDUM by Mavis Hawley on 07/09/18 at 0951 OFFICE PROCEDURES Office Procedure Documentation entered by Mavis Hawley 07/09/18 09:51: Immunizations Boostrix Tdap Performing Provider: Flower Caal MD Administered by: Mavis Hawley on 07/09/18 09:50 Dose Route Admin Location Lot Number Expiration Date NDC Nail Galvanizer 0.5 mL IM Right Arm (SQ) [id number] 08/03/24 16967-841-97 [employer] VIS Given Date VIS Publication Date 07/09/18 11/08/14 Eligibility Eligibility Date Office Meds Flucelvax Quad (PF) Performing Provider: Flower Caal MD Administered by: Mavis Hawley on 07/09/18 09:48 Dose Route Admin Location Lot Number Expiration Date NDC Nail Galvanizer 60 mcg IM left IM [id number] 08/03/24 14310-628-37 SEQIRUS 07/09/18 0951 <Electronically signed by Mavis Hawley > Date Mavis Hawley cc: * Signed ADDENDUM by Mavis Hawley on 07/09/18 at 0950 OFFICE PROCEDURES Office Procedure Documentation entered by Mavis Hawley 07/09/18 09:50: Office Meds Flucelvax Quad (PF) Performing Provider: Flower Caal MD Administered by: Mavis Hawley on 07/09/18 09:48 Dose Route Admin Location Lot Number Expiration Date NDC Nail Galvanizer 60 mcg IM left IM [id number] 08/03/24 40280-846-72 SEQIRUS 07/09/18 0950 <Electronically signed by Mavis Hawley > Date Mavis Hawley cc: * Signed Intake Vital Signs07/09/18 Height 5 ft 8 in 07/09/18 Weight: 175 lb 07/09/18 Body Mass Index (BMI) 26.6 07/09/18 Blood Pressure 120/60 Intake Visit Reasons: 30 weeks Ventilation Worker Required: No Is patient in pain?: No Allergies No Known Allergies Allergy (Verified 07/09/18 08:53) Medications lactobacillus combination no.8 3 billion cell capsule 3,000 mmu cells PO QDAY 02/13/18 [History Confirmed 06/26/18] vitamin,calcium,jprcxvwg-ygyq-xqrew acid tablet 1 tab PO QDAY 02/13/18 [History Confirmed 06/26/18] promethazine 12.5 mg tablet 12.5 mg PO Q6H PRN 02/13/18 [History Confirmed 06/26/18] aspirin 81 mg chewable tablet 81 mg PO DAILY 05/08/18 [History Confirmed 06/26/18] Last Menstral Period: 12/06/17 Zika: Zika virus screening: Negative : No PFSH PFSH Medical History D AND C (Acute) (Acute) Vertebral artery dissection (Acute) Family History Mother Parkinson disease Social History Smoking Status: Never smoker alcohol intake: never substance use type: does not use caffeine: Yes what type of physical activity do you participate in: walking, running frequency: 1-2 times per week seatbelt use: always do you feel safe at home: Yes additional social history: Spouse Tim Pregancy History 2 Elective abortions Hx Para 0 Spontaneous abortions 1 HPI 30 weeks: Details: SANIYA SAHU is a 28 year old who presents for routine OB visit. Urine dip negative. OB Visit LÁZARO Calculator Estimated Delivery Date 09/12/18 Based on LMP (certain) 12/06/17 Current WG 30w 5d Number 1 Expected Delivery Route/Plan Specific Issue/Plans flu vaccine: given minichart given: yes tdap vaccine: given rhogam: na LARC form signed: ryan labor support person: Meño pain management: epidural cut cord/dad catch: yes : yes PP control planned: [] special requests: [] Initial Weight: 155 lb Date Weight BP Urine PrFHR FuHt Pres MoCTX DilationFetal StVisit NoProviderComments E ot v te GA G Effac lucose ed Visit Notes Visit Date: 07/09/18 no vb lof good fm no regular ctx Flower Caal MD on 07/09/18 Visit Date: 06/26/18 no vb lof good fm no regualr ctx. will get flu vaccine next time. Flower Caal MD on 06/26/18 Visit Date: 05/28/18 no vb cramping- obtain us results Flower Caal MD on 05/28/18 Visit Date: 05/08/18 no vb lof good fm s/p mfm consult and recommend shortened second stage Flower Caal MD on 05/08/18 Visit Date: 04/09/18 no vb cramping Flower Caal MD on 04/09/18 Visit Date: 03/13/18 Nausea improved. No VB, LOF. OSVALDO Ellington on 03/13/18 Visit Date: 02/13/18 No visit notes to display ACOG First Trimester First Trimester: Discussed Diagnostics Diagnostics Labs Blood Type A POSITIVE 02/13/18 Antibody Screen NEGATIVE 02/13/18 Hct 28.6 % (37-47) L 06/26/18 Hgb 9.3 g/dl (12.0-15.0) L 06/26/18 Rubella IgG Antibody 238.9 IU/mL 02/13/18 RPR NONREACTIVE (NONREACTIVE) 02/13/18 Hep Bs Antigen Negative (Negative) 02/13/18 Chlam trachomat DNA PCR Negative (Negative) 02/13/18 N.gonorrhoeae DNA (PCR) Negative (Negative) 02/13/18 Glucose 1 Hr 50 gm 130 mg/dL (70-140) 06/26/18 Miscellaneous Test 03/30/18 Details: HIV: Urine Culture: Sequential Screen: NIPT Screen: Assessment AND Plan Problems 1. Choroid plexus cyst G93.0 2. 32 weeks gestation of Z3A.32 sequential screen negative. carrier screening negative. anatomy scan negative. 3. screening encounter Z36.9 NT/Sequential screen: negative 4. 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 mfm consult NT normal 03/05/18 5. Encounter for supervision of normal first in third trimester Z34.03 PRR LÁZARO 09/12/18 Meño 6. Anemia affecting in third trimester O99.013 Plan ACOG trimester education reviewed and updated. see problem list details for updated plan management information and see below for orders placed at this visit. GA appropriate handout given. Coding Level of Care Code OB Routine Diagnoses Choroid plexus cyst G93.0 32 weeks gestation of Z3A.32 Weeks of gestation: 32 weeks screening encounter Z36.9 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 Encounter for supervision of normal first in third trimester Z34.03 Normal : normal first Trimester: third trimester Anemia affecting in third trimester O99.013 Trimester: third trimester 07/09/18 0930 <Electronically signed by Flower Caal MD> Date Flower Caal MD Cosigner Signature: Date (if applicable) CC: CBC W/DIFF, AUTOMATED Collected: 06/26/2018 Status: F Source: [place] 9:49 AM [facility] REPOSITORY TYPE CODE TESTS RESULT OUT OF RANGE REFERENCE UNITS LAB L100.1000 4.4-11.0 K/mm3 Normal WBC 7.0 LAB L100.1200 4.2-5.4 M/mm3 Low RBC 3.14 LAB L100.1300 12.0-15.0 g/dl Low HGB 9.3 LAB L100.1400 37-47 % Low HCT 28.6 LAB L100.1500 81-99 fL Normal MCV 91.1 LAB L100.1600 27.0-32.0 pg Normal MCH 29.6 LAB L100.1700 32-36 g/gl Normal MCHC 32.5 LAB L100.1810 11.6-14.6 % Normal RDW CV 13.1 LAB L100.1820 35.1-43.9 fl Normal RDW SD 42.4 LAB L100.1900 150-450 K/mm3 Normal PLT 234 LAB L100.2000 6.2-12.0 fl Normal MPV 10.7 LAB L100.2100 47-70 % Normal NEUT% 67.4 LAB L100.2200 19-41 % Normal LY% 21.4 LAB L100.2300 0-10 % Normal MONO% 9.0 LAB L100.2400 0-5 % Normal EO% 1.0 LAB L100.2500 0-1 % Normal BASO% 0.1 LAB L100.2550 0.0-0.9 % High IM GRAN % 1.100 Result Comment: IG% - Immature Granulocytes (promyelocytes, myelocytes and metamyelocytes) > 1% indicates that a LEFT SHIFT is Present. LAB L100.2620 2.0-7.7 X10 3/uL Normal Absolute Neut 4.7 LAB L100.2720 0.83-4.51 X10 3/ul Normal Absolute Lymph 1.49 Performed By: #### L100.0100 #### [facility] [address] [place], [address] GLUCOSE CHALLENGE GEST Collected: 06/26/2018 Status: F Source: [place] 1H 50G 9:49 AM [facility] REPOSITORY TYPE CODE TESTS RESULT OUT OF RANGE REFERENCE UNITS LAB L501.0250 70-140 mg/dL Normal GLU GEST 130 50g 1H Performed By: #### L501.0250 #### [facility] [address] [place], [address] PEDIATRIC ASSISTANT OFFICE VISIT Observed: 06/26/2018 Status: F Source: [place] REPORT 9:27 AM [facility] REPOSITORY [place] [facility] Emergency Department [address] [place] [address] OFFICE VISIT Date of Service: 06/26/18 MR#: [id number] Acct: [id number] Name: KATHLEENSANIYA GAMBOA Brandon Rep #: [id number] : 1990 Provider: Flower Caal MD Age/Sex: 28/F Location: [facility] [place] [facility] [place] Status: Signed Intake Vital Signs06/26/18 Height 5 ft 8 in 06/26/18 Weight: 177 lb 06/26/18 Body Mass Index (BMI) 26.9 06/26/18 Blood Pressure 110/52 L Intake Visit Reasons: est ob 28 weeks Chief Complaint: est ob Ventilation Worker Required: No Is patient in pain?: No Allergies No Known Allergies Allergy (Verified 06/26/18 08:58) Medications lactobacillus combination no.8 3 billion cell capsule 3,000 mmu cells PO QDAY 02/13/18 [History Confirmed 06/26/18] vitamin,calcium,roopmcft-mlwr-asbgs acid tablet 1 tab PO QDAY 02/13/18 [History Confirmed 06/26/18] promethazine 12.5 mg tablet 12.5 mg PO Q6H PRN 02/13/18 [History Confirmed 06/26/18] aspirin 81 mg chewable tablet 81 mg PO DAILY 05/08/18 [History Confirmed 06/26/18] Last Menstral Period: 12/06/17 Zika: Zika virus screening: Negative : No PFSH PFSH Medical History D AND C (Acute) (Acute) Vertebral artery dissection (Acute) Family History Mother Parkinson disease Social History Smoking Status: Never smoker alcohol intake: never substance use type: does not use caffeine: Yes what type of physical activity do you participate in: walking, running frequency: 1-2 times per week seatbelt use: always do you feel safe at home: Yes additional social history: Spouse Tim Pregancy History 2 Elective abortions Hx Para 0 Spontaneous abortions 1 HPI est ob 28 weeks: Details: SANIYA SAHU is a 28 year old who presents for routine OB visit. Patient declines flu vaccine OB Visit LÁZARO Calculator Estimated Delivery Date 09/12/18 Based on LMP (certain) 12/06/17 Current WG 28w 6d Number 1 Expected Delivery Route/Plan Specific Issue/Plans flu vaccine: accepting will get next visit minichart given: yes tdap vaccine: given rhogam: [] LARC form signed: [] labor support person: Meño pain management: epidural cut cord/dad catch: yes : yes PP control planned: [] special requests: [] Initial Weight: 155 lb Date Weight BP Urine PrFHR FuHt Pres MoCTX DilationFetal StVisit NoProviderComments E ot v te GA G Effac lucose ed Visit Notes Visit Date: 06/26/18 no vb lof good fm no regualr ctx. will get flu vaccine next time. Flower Caal MD on 06/26/18 Visit Date: 05/28/18 no vb cramping- obtain us results Flower Caal MD on 05/28/18 Visit Date: 05/08/18 no vb lof good fm s/p mfm consult and recommend shortened second stage Flower Caal MD on 05/08/18 Visit Date: 04/09/18 no vb cramping Flower Caal MD on 04/09/18 Visit Date: 03/13/18 Nausea improved. No VB, LOF. OSVALDO Ellington on 03/13/18 Visit Date: 02/13/18 No visit notes to display ACOG First Trimester First Trimester: Discussed Diagnostics Diagnostics Labs Blood Type A POSITIVE 02/13/18 Antibody Screen NEGATIVE 02/13/18 Hct 36.2 % (37-47) L 02/13/18 Hgb 12.3 g/dl (12.0-15.0) 02/13/18 Rubella IgG Antibody 238.9 IU/mL 02/13/18 RPR NONREACTIVE (NONREACTIVE) 02/13/18 Hep Bs Antigen Negative (Negative) 02/13/18 Chlam trachomat DNA PCR Negative (Negative) 02/13/18 N.gonorrhoeae DNA (PCR) Negative (Negative) 02/13/18 Miscellaneous Test 03/30/18 Details: HIV: Urine Culture: Sequential Screen: NIPT Screen: Assessment AND Plan Problems 1. screening encounter Z36.9 NT/Sequential screen: negative 2. 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 mfm consult NT normal 03/05/18 3. Encounter for supervision of normal first in third trimester Z34.03 PRR LÁZARO 09/12/18 Meño 4. Choroid plexus cyst G93.0 5. Z34.90 sequential screen negative. carrier screening negative. anatomy scan negative. Plan movement and labor precautions reviewed. ACOG trimester education reviewed and updated. see problem list details for updated plan management information and see below for orders placed at this visit. GA appropriate handout given. Orders Orders: Coding Level of Care Code OB Routine Diagnoses screening encounter Z36.9 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 Encounter for supervision of normal first in third trimester Z34.03 Normal : normal first Trimester: third trimester Choroid plexus cyst G93.0 Z34.90 06/26/18 0927 <Electronically signed by Flower Caal MD> Date Flower Caal MD Cosigner Signature: Date (if applicable) CC: PROGRESS NOTE Observed: 06/22/2018 Status: COMPLETED Source: [place] 9:00 AM [facility] REPOSITORY DOS: 06/22/2018 [facility] MATERNAL- MEDICINE FOLLOW UP CONSULT Referring/Requesting Provider: Flower Caal MD PCP: [facility] MD CHIEF COMPLAINT: Vertebral artery dissection HISTORY OF PRESENT ILLNESS: Patricia is a 28 y.o. 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 She denies any current symptoms. Saniya saw Dr. Tristan from the [facility] on . Repeat imaging showed difference in the size of the right vertebral artery. There is a dominant left vertebral artery. Per available documentation, Dr. Tristan feels there was a probable right vertebral artery dissection, although congenital hypoplasia could not be ruled out. Saniya was counseled on potential risks of delivery. She denies any current obstetric complaints today and reports normal movement. OB HISTORY: OB History Para Term AB Living 2 0 0 0 1 0 SAB TAB Ectopic Multiple Live Births 1 0 0 0 0 # Outcome Date GA Lbr Gulshan/2nd Weight Sex Delivery Anes PTL Lv 2 Current 1 SAB 12/01/17 9w0d Comments: Pt had D&C PAST MEDICAL HISTORY: Past Medical History: Diagnosis Date Depression History of anxiety Vertebral artery dissection PAST SURGICAL HISTORY: Past Surgical History: Procedure Laterality Date GYNECOLOGICAL SURGERY WISDOM TOOTH EXTRACTION 07/2016 PERTINENT FAMILY HISTORY: Family History Problem Relation Age of Onset No known problems Mother No known problems Father No known problems Brother Stroke Maternal Grandmother Cancer Paternal Grandfather MEDS: Current Outpatient Prescriptions Medication Sig MAGNESIUM PO Take 1 Tab by mouth daily Pt unsure of exact dosage aspirin 81 MG TABS Take 81 mg by mouth daily Vit w/Wy-Lkrnlgqbb-HL (PNV PO) Take 1 Tab by mouth daily Probiotic Product (PROBIOTIC DAILY PO) Take 1 Tab by mouth daily Famotidine (PEPCID PO) Take 10 mg by mouth daily ALLERGY: No Known Allergies REVIEW OF SYSTEMS: As mentioned above and in Subjective, all other Review of Systems reviewed and negative. PHYSICAL EXAM: VITAL SIGNS: BP 104/64 Ht 170.2 cm Wt 79.4 kg (175 lb) LMP 12/06/2017 BMI 27.40 kg/m IMAGING: Estimated weight and amniotic fluid volume are appropriate for gestational age. Previously seen choroid plexus cysts were not visualized on today's scan. LABS: No results found for any previous visit. IMPRESSION: Saniya is a 28 y.o. female at 28w2d with Patient Active Problem List Diagnosis Vertebral artery dissection RECOMMENDATIONS: 1. 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 2. Continue low dose aspirin. 3. Agree with prior MFM recommendation for early epidural and shortened second stage of labor with minimal maternal pushing efforts. section reserved for obstetric indications. 4. Patient counseled on risks/benefits of operative delivery (vacuum vs forceps) and section. At this time, Saniya agrees with our recommendation and comfortable with a trial of labor. She intends to further discuss route of delivery with you at her care appointment on Friday. 5. Follow up with MFM as clinically indicated. The total patient time of the visit was 25 minutes, of which was greater than 50% of the time was spent counseling and coordinating care. Barrera العراقي DO PROGRESS Observed: 05/29/2018 Status: COMPLETED Source: [place] 2:33 PM [facility] HNO ID: [id number] Author: Дмитрий Arcos (Coord) Service: (none) Author Type: Research Type: Progress Notes Filed: 05/29/2018 2:33 PM Note Text: RESEARCH STUDY: PATIENT CONSENTING TO PARTICIPATE DOCUMENTATION Patient/Subject Name: Saniya Sahu : 1990 Description: IRB# [id number] Research Study Title: VIPER: Validity of Proxy Responses Ski Instructor: Linda Weiss, PhD Table Runner: Joselo Arcos Informed Consent obtained on: May 29, 2018 Objective: Improving the Interpretation and Utilization of Patient-Reported Outcome Measurements in Clinical Research The research study?s most current version of the valid informed consent document was reviewed with and explained to the patient. All risks, benefits, alternatives and procedures of the research study were reviewed with and explained to the patient. All of the patient's research study related and medical questions were answered at this time. The patient has read the most current version of the valid informed consent document and expressed understanding of the research study. The patient stated they would like to participate in the research study and signed the most current version of the valid informed consent document. A copy of the signed informed consent document (Informed Consent Version: Version A3, IRB Approval Date: 05/19/2018) was given to the research subject. Participation in this arm of this research study is limited to this encounter. After completion of the study survey assessments post-consent participation is ended. 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 -Date of last stroke event (enter as much detail as possible; if not known, provide estimate): 2013 event (numbness tingling left side of body, blurred vision) Interval History: Patient with history of occasional tension headaches, otherwise denies any current neurological symptoms. Currently 25 weeks and here to consult about safe related to her condition. She was seen here in 2012 - had presented with symptoms of left-sided numbness and dizziness occurring after chiropractic visit. Imaging, including angiogram, demonstrated small right vertebral artery either due to hypoplasia or dissection. Left vert dominant. MRI negative for ischemic change. Repeat imaging done 3-4 months after event, which demonstrated no change. Since that time, she has been neurologically stable, no recurrent events. TCP done this afternoon show reduced MFVs throughout length of right vertebral artery, which is consistent with 2013 imaging. 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 COMPOUNDED PRESCRIPTION Taking 2 probiotic pills a night of 100 mg per capsule DOCOSAHEXANOIC ACID/EPA (FISH OIL ORAL) Take by mouth. ketorolac (TORADOL) 10 mg tablet Take 1 tablet by mouth every 6 hours as needed for Pain. amitriptyline (ELAVIL) 10 mg tablet Take 1 tablet by mouth daily at bedtime. rizatriptan (MAXALT-ASSOCIATE MEDIA DIRECTOR) 10 mg disintegrating tablet May repeat in 2 hours if needed rpvqkvuk-rswv-QA-calcium ANDmins (ONE-A-DAY WOMEN'S PETITES) 9 mg iron -200 mcg tab Take 1 tablet by mouth once daily. No current facility-administered medications for this visit. REVIEW OF SYSTEMS: ALLERGIES Allergen Reactions - Laundry Detergent [* Rash Purex Review of Systems Constitutional Positive for Weight Gain () and Fatigue (normal) Eyes Negative for Change in vison not corrected by glasses Hent Negative for Hearing Loss and Tinnitus Cardiovascular Negative for Chest Pain Respiratory Negative for SOB at rest and SOB with exertion GI Negative for Abdominal Pain Musculoskeletal Negative for Back Pain Heme/Lymph Negative for Prolonged Bleeding and Easy Bruising Neurologic Positive for Headache (occasional) Negative for Memory Problems, Numbness/Tingling, Weakness, Double Vision, Trouble Swallowing and Slurred Speech Psychiatric Negative for Depression and Anxiety Patient's Review of Systems has been reviewed with the patient and updated as appropriate. Examination: BP 125/73 (BP Site: Left Arm, BP Position: Sitting, BP Cuff Size: Regular Adult) Pulse 96 Resp 18 Ht 168.9 cm (5' 6.5) Wt 76.7 kg (169 lb) BMI 26.87 kg/m? General: pleasant, speech fluent and clear without dysarthria Cranial Nerves: III, IV, -EOMI, PERRL, No nystagmus. VII- face is symmetric without evidence of weakness, Motor: Normal muscle tone and bulk. No evidence of atrophy or fasciculations. Strength is normal, 5/5. Cerebellar: No ataxia. Tremor: absent. Normal finger to nose, heel to quintana and rapid alternating movements. Gait examination is normal. The patient had no difficulty with heel, toe or tandem walking. Romberg testing is normal. -Cerebrovascular Categories: Other Symptomatic: right vertebral artery dissection, with probable imaging-negative stroke Impression/ Differential Diagnosis/ Recommendations/ Care Plan: Mrs. Sahu is a 28 yo woman with brainstem symptoms occurring after chiropractic visit, found to have diminutive right vertebral artery. Angiogram suggests there was midcervical reconstitution of right vertebral. Has dominant left vertebral artery, which is providing majority of circulation to posterior fossa. Given clinical symptoms and imaging findings, had probable right vertebral artery dissection, although cannot rule-out congenital hypoplasia. TCP consistent with imaging findings from 2013. Do not feel further imaging necessary at this time. Assuming vertebral dissection, she is at some risk of recurrence in right vert and occurrence in left vertebral artery and so would prefer that she avoid activities that require valsalva maneuvers. Decision on must take into account factors other than neurological ones, and will be made in conjunction with patient and high-risk OB. Recommend aspirin, as well. Discussed with and Mrs. Sahu. Karolina Tristan MD Risk Factor Management Hypertension Blood pressure 125/73, pulse 96, resp. rate 18, height 168.9 cm (5' 6.5), weight 76.7 kg (169 lb). Target blood pressure <140/90, <130/85 for high risk, normal 120/80 Hyperlipidemia Cholesterol values are: Cholesterol, Total (mg/dL) Date Value 02/22/2013 163 Target total cholesterol < 200 LDL Cholesterol (mg/dL) Date Value 02/22/2013 80 Target LDL <100, < 70 for high risk HDL Cholesterol (mg/dL) Date Value 02/22/2013 75 Target HDL >45 for men, >55 for women Triglyceride (mg/dL) Date Value 02/22/2013 41 Target triglycerides <150 Diabetes Hemoglobin A1C (%) Date Value 02/22/2013 5.2 Target <6.5-7% Smoking Social History Marital status: Spouse name: Tim Years of education: Number of children: 0 Occupational History 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 [employer]* Social History Main Topics Smoking status: Never Smoker Smokeless tobacco: Never Used Alcohol use: No Drug use: No Sexual activity: Yes Partners with: Male control/protection: None Other Topics Concern Service No Blood Transfusions No Caffeine Concern No Occupational Exposure No Hobby Hazards No Sleep Concern No Stress Concern No Weight Concern No Special Diet No Back Care Yes Exercise Yes Bike Helmet Yes Seat Belt Yes Self-Exams Yes Social History Narrative 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 Valentina Lexiamado GLENYS Observed: 05/29/2018 Status: COMPLETED Source: [place] 1:40 PM [facility] REPOSITORY Office Visit (NECVS8) SANIYA SAHU ([id number]) 1990 F NFR Date Time Provider Department 05/29/18 1:40 PM KAROLINA TRISTAN NECVS8 During your visit today, we recorded the following information about you: Pulse Respiration Blood pressure Weight 96/minute 18/minute 125/73 76.7 kg Height 1.689 m Karolina Tristan MD 05/30/2018 10:03 PM Signed [facility] PCP: Jono Pearson III MD [address] [place] [address] Saniya Sahu is a 28 year old female who presents for followup evaluation of 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 -Date of last stroke event (enter as much detail as possible; if not known, provide estimate): 2012 event (numbness tingling left side of body, blurred vision) Interval History: Patient with history of occasional tension headaches, otherwise denies any current neurological symptoms. Currently 25 weeks and here to consult about safe related to her condition. She was seen here in 2012 - had presented with symptoms of left-sided numbness and dizziness occurring after chiropractic visit. Imaging, including angiogram, demonstrated small right vertebral artery either due to hypoplasia or dissection. Left vert dominant. MRI negative for ischemic change. Repeat imaging done 3-4 months after event, which demonstrated no change. Since that time, she has been neurologically stable, no recurrent events. TCP done this afternoon show reduced MFVs throughout length of right vertebral artery, which is consistent with 2013 imaging. 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 COMPOUNDED PRESCRIPTION Taking 2 probiotic pills a night of 100 mg per capsule DOCOSAHEXANOIC ACID/EPA (FISH OIL ORAL) Take by mouth. ketorolac (TORADOL) 10 mg tablet Take 1 tablet by mouth every 6 hours as needed for Pain. amitriptyline (ELAVIL) 10 mg tablet Take 1 tablet by mouth daily at bedtime. rizatriptan (MAXALT-ASSOCIATE MEDIA DIRECTOR) 10 mg disintegrating tablet May repeat in 2 hours if needed jdpcuvyi-mnon-QE-calcium ANDmins (ONE-A-DAY WOMEN'S PETITES) 9 mg iron -200 mcg tab Take 1 tablet by mouth once daily. No current facility-administered medications for this visit. REVIEW OF SYSTEMS: ALLERGIES Allergen Reactions - Laundry Detergent [* Rash Purex Review of Systems Constitutional Positive for Weight Gain () and Fatigue (normal) Eyes Negative for Change in vison not corrected by glasses Hent Negative for Hearing Loss and Tinnitus Cardiovascular Negative for Chest Pain Respiratory Negative for SOB at rest and SOB with exertion GI Negative for Abdominal Pain Musculoskeletal Negative for Back Pain Heme/Lymph Negative for Prolonged Bleeding and Easy Bruising Neurologic Positive for Headache (occasional) Negative for Memory Problems, Numbness/Tingling, Weakness, Double Vision, Trouble Swallowing and Slurred Speech Psychiatric Negative for Depression and Anxiety Patient's Review of Systems has been reviewed with the patient and updated as appropriate. Examination: BP 125/73 (BP Site: Left Arm, BP Position: Sitting, BP Cuff Size: Regular Adult) Pulse 96 Resp 18 Ht 168.9 cm (5' 6.5) Wt 76.7 kg (169 lb) BMI 26.87 kg/m? General: pleasant, speech fluent and clear without dysarthria Cranial Nerves: III, IV, -EOMI, PERRL, No nystagmus. VII- face is symmetric without evidence of weakness, Motor: Normal muscle tone and bulk. No evidence of atrophy or fasciculations. Strength is normal, 5/5. Cerebellar: No ataxia. Tremor: absent. Normal finger to nose, heel to quintana and rapid alternating movements. Gait examination is normal. The patient had no difficulty with heel, toe or tandem walking. Romberg testing is normal. -Cerebrovascular Categories: Other Symptomatic: right vertebral artery dissection, with probable imaging-negative stroke Impression/ Differential Diagnosis/ Recommendations/ Care Plan: Mrs. Sahu is a 28 yo woman with brainstem symptoms occurring after chiropractic visit, found to have diminutive right vertebral artery. Angiogram suggests there was midcervical reconstitution of right vertebral. Has dominant left vertebral artery, which is providing majority of circulation to posterior fossa. Given clinical symptoms and imaging findings, had probable right vertebral artery dissection, although cannot rule-out congenital hypoplasia. TCP consistent with imaging findings from 2013. Do not feel further imaging necessary at this time. Assuming vertebral dissection, she is at some risk of recurrence in right vert and occurrence in left vertebral artery and so would prefer that she avoid activities that require valsalva maneuvers. Decision on must take into account factors other than neurological ones, and will be made in conjunction with patient and high-risk OB. Recommend aspirin, as well. Discussed with and Mrs. Sahu. Karolina Tristan MD Risk Factor Management Hypertension Blood pressure 125/73, pulse 96, resp. rate 18, height 168.9 cm (5' 6.5), weight 76.7 kg (169 lb). Target blood pressure <140/90, <130/85 for high risk, normal 120/80 Hyperlipidemia Cholesterol values are: Cholesterol, Total (mg/dL) Date Value 02/22/2013 163 Target total cholesterol < 200 LDL Cholesterol (mg/dL) Date Value 02/22/2013 80 Target LDL <100, < 70 for high risk HDL Cholesterol (mg/dL) Date Value 02/22/2013 75 Target HDL >45 for men, >55 for women Triglyceride (mg/dL) Date Value 02/22/2013 41 Target triglycerides <150 Diabetes Hemoglobin A1C (%) Date Value 02/22/2013 5.2 Target <6.5-7% Smoking Social History Marital status: Spouse name: Tim Years of education: Number of children: 0 Occupational History 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 [employer]* Social History Main Topics Smoking status: Never Smoker Smokeless tobacco: Never Used Alcohol use: No Drug use: No Sexual activity: Yes Partners with: Male control/protection: None Other Topics Concern Service No Blood Transfusions No Caffeine Concern No Occupational Exposure No Hobby Hazards No Sleep Concern No Stress Concern No Weight Concern No Special Diet No Back Care Yes Exercise Yes Bike Helmet Yes Seat Belt Yes Self-Exams Yes Social History Narrative 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 COMPOUNDED PRESCRIPTION Taking 2 probiotic pills a ni* FISH OIL ORAL Take by mouth. KETOROLAC 10 MG TABLET Take 1 tablet by mouth every * AMITRIPTYLINE 10 MG TABLET Take 1 tablet by mouth daily * RIZATRIPTAN 10 MG DISINTEGRAT* May repeat in 2 hours if need* MULTIVITAMIN-IRON 9 MG-FOLIC * Take 1 tablet by mouth once d* Problem List As Of Date 05/29/2018 Noted Resolved Anemia, due to Inadequate Iron Intake [D50.8] INVALID FOR* Anxiety [F41.9] INVALID FOR* Panic anxiety syndrome [F41.0] INVALID FOR* Anxiety with somatization [F41.9, F45.0] INVALID FOR* Vertebral artery dissection [I77.74] INVALID FOR* Intractable episodic headache [R51] INVALID FOR* Encounter Status:Closed by KAROLINA TRISTAN MD on 05/30/18 US TCD POSTERIOR CIRC Observed: 05/29/2018 Status: F Source: [place] 1:17 PM [facility] [place] REPOSITORY * * *Final Report* * * DATE OF EXAM: May 29 2018 1:17PM ALU 1120 - US TCD POSTERIOR CIRC / PROCEDURE REASON: Dissection of vertebral artery * * * * Physician Interpretation * * * * CLINICAL HISTORY: 28 year old female with a history of right vertebral artery dissection PRIORS: MRA 05/25/13, IR 02/22/13 BASILAR mean(cm/sec) 68 PI .70 Insonation from 80 to 116 mm INTRACRANIAL VERTEBRAL ARTERIES LVA mean(cm/sec) 68 PI .73 RVA mean(cm/sec) 38 PI .66 EXTRACRANIAL VERTEBRAL ARTERIES LVA mean(cm/sec) Origin 52 Proximal 37 Mid 42 Distal 49 RVA mean(cm/sec) Origin 18 Proximal 27 Mid 21 Distal 21 LEFT SUBCLAVIAN PSV(cm/sec) Proximal 224 RIGHT SUBCLAVIAN PSV (cm/sec) Proximal 191 Technologist: Melba Phillips RVT RDMS IMPRESSION: The mean flow velocities in the right vertebral artery both intracranially and extracranially are diminished when compared to the left which could be from the reported hypoplastic right vertebral artery with dominant left vertebral artery. The mean flow velocities of the basilar artery and the left intracranial vertebral arteries are within normal limits. The extracranial vertebral arteries are patent and demonstrate antegrade flow bilaterally. The proximal subclavian arteries are unremarkable bilaterally. Station Engineer: MARGRET Transcribe Date/Time: May 29 2018 1:17P Dictated by : ALY SUAREZ MD This examination was interpreted and the report reviewed and electronically signed by: ALY SUAREZ MD on May 29 2018 2:25PM EST [id number] PEDIATRIC ASSISTANT OFFICE VISIT Observed: 05/28/2018 Status: F Source: [place] REPORT 9:44 AM [facility] [address] [place] [address] OFFICE VISIT Date of Service: 05/28/18 MR#: [id number] Acct: [id number] Name: SANIYA SAHU Rep #: [id number] : 1990 Provider: Flower Caal MD Age/Sex: 28/F Location: [facility] [place] [facility] [place] Status: Signed Intake Vital Signs05/28/18 Height 5 ft 8 in 05/28/18 Weight: 169 lb 05/28/18 Body Mass Index (BMI) 25.7 05/28/18 Blood Pressure 122/64 Intake Visit Reasons: est ob 24 weeks Chief Complaint: est ob Ventilation Worker Required: No Is patient in pain?: No Allergies No Known Allergies Allergy (Verified 05/28/18 09:26) Medications lactobacillus combination no.8 3 billion cell capsule 3,000 mmu cells PO QDAY 02/13/18 [History Confirmed 05/28/18] vitamin,calcium,jkxlvkao-kneu-pdfbc acid tablet 1 tab PO QDAY 02/13/18 [History Confirmed 05/28/18] promethazine 12.5 mg tablet 12.5 mg PO Q6H PRN 02/13/18 [History Confirmed 05/28/18] aspirin 81 mg chewable tablet 81 mg PO DAILY 05/08/18 [History Confirmed 05/28/18] Last Menstral Period: 12/06/17 Zika: Zika virus screening: Negative : No PFSH PFSH Medical History D AND C (Acute) (Acute) Vertebral artery dissection (Acute) Family History Mother Parkinson disease Social History Smoking Status: Never smoker alcohol intake: never substance use type: does not use caffeine: Yes what type of physical activity do you participate in: walking, running frequency: 1-2 times per week seatbelt use: always do you feel safe at home: Yes additional social history: Spouse Tim Pregancy History 2 Elective abortions Hx Para 0 Spontaneous abortions 1 HPI est ob 24 weeks: Details: SANIYA SAHU is a 28 year old who presents for routine OB visit. OB Visit LÁZARO Calculator Estimated Delivery Date 09/12/18 Based on LMP (certain) 12/06/17 Current WG 24w 5d Number 1 Expected Delivery Route/Plan Specific Issue/Plans flu vaccine: no minichart given: yes tdap vaccine: [] rhogam: [] LARC form signed: [] labor support person: Meño pain management: epidural cut cord/dad catch: yes : yes PP control planned: [] special requests: [] Initial Weight: 155 lb Date Weight BP Urine PrFHR FuHt Pres MoCTX DilationFetal StVisit NoProviderComments E ot v te GA G Effac lucose ed Visit Notes Visit Date: 05/28/18 no vb cramping- obtain us results Flower Caal MD on 05/28/18 Visit Date: 05/08/18 no vb lof good fm s/p mfm consult and recommend shortened second stage Flower Caal MD on 05/08/18 Visit Date: 04/09/18 no vb cramping Flower Caal MD on 04/09/18 Visit Date: 03/13/18 Nausea improved. No VB, LOF. OSVALDO Ellington on 03/13/18 Visit Date: 02/13/18 No visit notes to display ACOG First Trimester First Trimester: Discussed Diagnostics Diagnostics Labs Blood Type A POSITIVE 02/13/18 Antibody Screen NEGATIVE 02/13/18 Hct 36.2 % (37-47) L 02/13/18 Hgb 12.3 g/dl (12.0-15.0) 02/13/18 Rubella IgG Antibody 238.9 IU/mL 02/13/18 RPR NONREACTIVE (NONREACTIVE) 02/13/18 Hep Bs Antigen Negative (Negative) 02/13/18 Chlam trachomat DNA PCR Negative (Negative) 02/13/18 N.gonorrhoeae DNA (PCR) Negative (Negative) 02/13/18 Miscellaneous Test 03/30/18 Details: HIV: Urine Culture: Sequential Screen: NIPT Screen: Results [id number] Office Urine Glucose Negative Last Edit by Mavis Hawley on 05/28/18 09:29 Office Urine Protein Negative Last Edit by Mavis Hawley on 05/28/18 09:29 Assessment AND Plan Problems 1. screening encounter Z36.9 NT/Sequential screen: negative 2. 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 mfm consult NT normal 03/05/18 3. Encounter for supervision of normal first in second trimester Z34.02 PRR LÁZARO 09/12/18 Meño Plan ACOG trimester education reviewed and updated. see problem list details for updated plan management information and see below for orders placed at this visit. GA appropriate handout given. Orders Orders: Coding Level of Care Code OB Routine Diagnoses screening encounter Z36.9 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 Encounter for supervision of normal first in second trimester Z34.02 Normal : normal first Trimester: second trimester 05/28/18 0944 <Electronically signed by Flower Caal MD> Date Flower Caal MD Cosigner Signature: Date (if applicable) CC: PEDIATRIC ASSISTANT OFFICE VISIT Observed: 05/08/2018 Status: F Source: [place] REPORT 9:10 AM [facility] [address] [place] [address] OFFICE VISIT Date of Service: 05/08/18 MR#: [id number] Acct: [id number] Name: SANIYA SAHU Rep #: [id number] : 1990 Provider: Flower Caal MD Age/Sex: 28/F Location[place] [facility] [facility] [place] Status: Signed Intake Vital Signs05/08/18 Height 5 ft 7 in 05/08/18 Weight: 165 lb 2 oz 05/08/18 Body Mass Index (BMI) 25.8 05/08/18 Blood Pressure 123/78 Intake Visit Reasons: 22 WEEK OB Ventilation Worker Required: No Accompanied by: Is patient in pain?: No Allergies No Known Allergies Allergy (Verified 05/08/18 08:41) Medications lactobacillus combination no.8 3 billion cell capsule 3,000 mmu cells PO QDAY 02/13/18 [History Confirmed 05/08/18] vitamin,calcium,rumxtgkq-pnxh-qvlvf acid tablet 1 tab PO QDAY 02/13/18 [History Confirmed 05/08/18] promethazine 12.5 mg tablet 12.5 mg PO Q6H PRN 02/13/18 [History Confirmed 05/08/18] aspirin 81 mg chewable tablet 81 mg PO DAILY 05/08/18 [History Confirmed 05/08/18] Last Menstral Period: 12/06/17 Zika: Zika virus screening: Negative : No PFSH PFSH Medical History D AND C (Acute) (Acute) Vertebral artery dissection (Acute) Family History Mother Parkinson disease Social History Smoking Status: Never smoker alcohol intake: never substance use type: does not use caffeine: Yes what type of physical activity do you participate in: walking, running frequency: 1-2 times per week seatbelt use: always do you feel safe at home: Yes additional social history: Spouse Tim Pregancy History 2 Elective abortions Hx Para 0 Spontaneous abortions 1 HPI 22 WEEK OB: Details: SANIYA SAHU is a 28 year old who presents for routine OB visit. OB Visit LÁZARO Calculator Estimated Delivery Date 09/12/18 Based on LMP (certain) 12/06/17 Current WG 21w 6d Number 1 Expected Delivery Route/Plan Specific Issue/Plans flu vaccine: no minichart given: yes tdap vaccine: [] rhogam: [] LARC form signed: [] labor support person: Meño pain management: epidural cut cord/dad catch: yes : yes PP control planned: [] special requests: [] Initial Weight: 155 lb Date Weight BP Urine PrFHR FuHt Pres MoCTX DilationFetal StVisit NoProviderComments E ot v te GA G Effac lucose ed Visit Notes Visit Date: 05/08/18 no vb lof good fm s/p mfm consult and recommend shortened second stage Flower Caal MD on 05/08/18 Visit Date: 04/09/18 no vb cramping Flower Caal MD on 04/09/18 Visit Date: 03/13/18 Nausea improved. No VB, LOF. OSVALDO Ellington on 03/13/18 Visit Date: 02/13/18 No visit notes to display ACOG First Trimester First Trimester: Discussed Diagnostics Diagnostics Labs Blood Type A POSITIVE 02/13/18 Antibody Screen NEGATIVE 02/13/18 Hct 36.2 % (37-47) L 02/13/18 Hgb 12.3 g/dl (12.0-15.0) 02/13/18 Rubella IgG Antibody 238.9 IU/mL 02/13/18 RPR NONREACTIVE (NONREACTIVE) 02/13/18 Hep Bs Antigen Negative (Negative) 02/13/18 Chlam trachomat DNA PCR Negative (Negative) 02/13/18 N.gonorrhoeae DNA (PCR) Negative (Negative) 02/13/18 Miscellaneous Test 03/30/18 Details: HIV: Urine Culture: Sequential Screen: NIPT Screen: Results [email or web address] Office Urine Glucose Negative Last Edit by Arin Cote on 05/08/18 08:47 Office Urine Protein Negative Last Edit by Arin Cote on 05/08/18 08:47 Assessment AND Plan Problems 1. Encounter for supervision of normal first in second trimester Z34.02 PRR LÁZARO 09/12/18 Meño 2. 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 mfm consult NT normal 03/05/18 3. screening encounter Z36.9 NT/Sequential screen: negative Plan ACOG trimester education reviewed and updated. see problem list details for updated plan management information and see below for orders placed at this visit. GA appropriate handout given. Orders Orders: Coding Level of Care Code OB Routine Diagnoses Encounter for supervision of normal first in second trimester Z34.02 Normal : normal first Trimester: second trimester 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 screening encounter Z36.9 05/08/18 0910 <Electronically signed by Flower Caal MD> Date Flower Caal MD Cosigner Signature: Date (if applicable) CC: PROGRESS NOTE Observed: 04/20/2018 Status: COMPLETED Source: [place] 2:30 PM [facility] REPOSITORY Maternal Medicine Consult Date of Service: 04/20/2018 Referring Provider: Flower Caal Primary Care Provider: [facility], MD Pj Reason for Consult: Dr. Flower Caal requests that Saniya be evaluated due to personal history of vertebral artery dissection. Zoey is a 28 y.o. at 19 2/7 gestation who presents for evaluation of vertebral artery dissection. Patient was admitted in 2012 for left sided numbness/dysethesias at the [facility]. Patient had a thorough evaluation including a cerebral angiogram, CT, MRI, Carotid Dopplers and Echo. Angiogram suggested dissection of right vertbral artery with a short segment occlusion in the distal right. She was continued on baby aspirin and told to avoid roller coasters, contact sports and neck manipulations. She has not had further neurologic follow-up nor evaluation of whether there was recanalization of the vessel. Patient denies current symptoms and has been off low dose aspirin for several years now. She was told telephonically that she did not have contraindications for . However, mode of delivery or specifics of related concerns were not discussed. During patient's visit, she had an anatomic survey. This showed choroid plexus cysts on the right side. Otherwise, no other anomalies were noted. Obstetric History T0 L0 SAB1 TAB0 Ectopic0 Multiple0 Live Births0 # Outcome Date GA Lbr Gulshan/2nd Weight Sex Delivery Anes PTL Lv 2 Current 1 SAB PMedHx: Vertebral artery dissection (Right) - dx 2012 PSurgHx: D&C FMHx: Mother with Parkinson's. Denies diabetes, hypertension, defects, genetic disorders or clotting disorders Meds: PNV, Probiotics All: NKDA Social: Denies alcohol, drug and tobacco use. Review of Systems All other systems reviewed and are negative. Physical Exam Vitals: 04/20/18 1344 BP: 120/70 Weight: 73 kg (161 lb) FHT: Positive Presentation: Transverse Ultrasound Results: 1. Single living intrauterine with biometry consistent with clinical dates. 2. Anatomic survey was adequately visualized. 3. Choroid plexus cysts were visualized. The rest of the anatomy appeared normal. 4. Amniotic fluid appeared normal. 5. Placenta is normal without evidence of previa. 6. Transvaginal cervical length to evaluate for risk for labor was performed and appeared normal, 3.64 cm. Impression: Saniya is a 28 y.o. female who is at 19w2d gestation. 1. History of vertebral artery dissection. In more than half of cases, vertebral artery dissection results in complete recanalization within 6 months of symptoms. Recurrence risk has been reported in 0 to 13% of case, but is likely at the low end of this range. Approximately 90% of patients continue to have some symptoms. The patient is currently void of symptoms. However, she is concerned of personal risks during . I spoke with Dr. Karolina Carrasco, Neurologist at the [facility]. We discussed follow-up for Saniya in order to re-evaluate vertebral artery bilaterally to determine if concern is still present. As patient is , Dr. Carrasco preferred evaluation with transcranial Doppler (TCD) rather than MRA. We also discussed mode of delivery. Dr. Carrasco agreed that shortened second stage is recommended. She did not feel anticoagulation was necessary at this time except for low-dose aspirin. We did not discuss regional anesthesia. However, I do not feel this should be contraindicated. I discussed with patient to confer with Dr. Carrasco when she sees her. 2. Choroid plexus cysts. I discussed with the patient that choroid plexus cysts are seen in 1% to 2% of all fetuses. In those fetuses with this finding there is a less than 1% risk of chromosomal abnormality. If there were other structural abnormalities the risk of chromosomal abnormality would be increased. I did not see any other structural abnormalities however, ultrasound cannot exclude all subtle defects nor can ultrasound exclude chromosomal abnormalities. We discussed the patient's sequential screen results, which showed corrected Trisomy 18 risk of 1:10,000 and Trisomy 21 to 1:9120. We did discuss cell free DNA. The patient declined further testing or further genetic counseling at thistime. Recommendations: 1. Follow-up with Neurology to evaluate vertebral artery bilaterally, specifically Transcranial Doppler. Will need to also discuss epidural use during labor. 2. Follow-up with MFM after Neurology evaluation to discuss plan of care. This was scheduled on June 22. 3. Restart low dose aspirin. 4. Growth ultrasound with follow-up visit. 5. Shortened second stage with Operative vaginal delivery. The total patient time of the visit was 30 minutes, of which greater than 50% of the time was spent counseling and coordinating care. PEDIATRIC ASSISTANT OFFICE VISIT Observed: 04/09/2018 Status: F Source: [place] REPORT 4:32 PM [facility] [address] [place] [address] OFFICE VISIT Date of Service: 04/09/18 MR#: [id number] Acct: [id number] Name: SANIYA SAHU Rep #: [id number] : 1990 Provider: Flower Caal MD Age/Sex: 28/F Location: [facility] [place] Status: Signed Intake Vital Signs04/09/18 Height 5 ft 7 in 04/09/18 Weight: 163 lb 6 oz 04/09/18 Body Mass Index (BMI) 25.5 04/09/18 Blood Pressure 130/75 Intake Visit Reasons: 18 WEEK OB Chief Complaint: est ob Ventilation Worker Required: No Is patient in pain?: No Allergies No Known Allergies Allergy (Verified 04/09/18 16:00) Medications lactobacillus combination no.8 3 billion cell capsule 3,000 mmu cells PO QDAY 02/13/18 [History Confirmed 04/09/18] vitamin,calcium,gakvxjta-eaxy-ekdfl acid tablet 1 tab PO QDAY 02/13/18 [History Confirmed 04/09/18] promethazine 12.5 mg tablet 12.5 mg PO Q6H PRN 02/13/18 [History Confirmed 04/09/18] Last Menstral Period: 12/06/17 Zika: Zika virus screening: Negative : No PFSH PFSH Medical History D AND C (Acute) (Acute) Vertebral artery dissection (Acute) Family History Mother Parkinson disease Social History Smoking Status: Never smoker alcohol intake: never substance use type: does not use caffeine: Yes what type of physical activity do you participate in: walking, running frequency: 1-2 times per week seatbelt use: always do you feel safe at home: Yes additional social history: Spouse Tim Pregancy History 2 Elective abortions Hx Para 0 Spontaneous abortions 1 HPI 18 WEEK OB: Details: SANIYA SAHU is a 28 year old who presents for routine OB visit. OB Visit LÁZARO Calculator Estimated Delivery Date 09/12/18 Based on LMP (certain) 12/06/17 Current WG 17w 5d Number 1 Expected Delivery Route/Plan Specific Issue/Plans flu vaccine: no minichart given: yes tdap vaccine: [] rhogam: [] LARC form signed: [] labor support person: Meño pain management: epidural cut cord/dad catch: yes : yes PP control planned: [] special requests: [] Initial Weight: Not Recorded Date Weight BP Urine PrFHR FuHt Pres MoCTX DilationFetal StVisit NoProviderComments E ot v te GA G Effac lucose ed Visit Notes Visit Date: 04/09/18 no vb cramping Flower Caal MD on 04/09/18 Visit Date: 03/13/18 Nausea improved. No VB, LOF. OSVALDO Ellington on 03/13/18 Visit Date: 02/13/18 No visit notes to display ACOG First Trimester First Trimester: Discussed Diagnostics Diagnostics Labs Blood Type A POSITIVE 02/13/18 Antibody Screen NEGATIVE 02/13/18 Hct 36.2 % (37-47) L 02/13/18 Hgb 12.3 g/dl (12.0-15.0) 02/13/18 Rubella IgG Antibody 238.9 IU/mL 02/13/18 RPR NONREACTIVE (NONREACTIVE) 02/13/18 Hep Bs Antigen Negative (Negative) 02/13/18 Chlam trachomat DNA PCR Negative (Negative) 02/13/18 N.gonorrhoeae DNA (PCR) Negative (Negative) 02/13/18 Miscellaneous Test Pending 03/30/18 Details: HIV: Urine Culture: Sequential Screen: NIPT Screen: Results [id number] Office Urine Glucose Negative Last Edit by Mavis Hawley on 04/09/18 16:02 Office Urine Protein Negative Last Edit by Mavis Hawley on 04/09/18 16:02 Assessment AND Plan Problems 1. Encounter for supervision of normal first in first trimester Z34.01 PRR LÁZARO 09/12/18 Meño 2. 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 mfm consult NT normal 03/05/18 3. screening encounter Z36.9 NT/Sequential screen: negative Plan ACOG trimester education reviewed and updated. see problem list details for updated plan management information and see below for orders placed at this visit. [place] appropriate handout given.anatomy us ordered with mfm consult Orders Orders: Coding Level of Care Code OB Routine Diagnoses Encounter for supervision of normal first in first trimester Z34.01 Normal : normal first Trimester: first trimester 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 screening encounter Z36.9 04/09/18 1632 <Electronically signed by Flower Caal MD> Date Flower Caal MD Cosigner Signature: Date (if applicable) CC: MISCELLANEOUS LAB Collected: 03/30/2018 Status: F Source: [place] PROCEDURE 12:45 PM [facility] REPOSITORY Order Comment: Test(s) Ordered: SEQUENTIAL SCREENING GREEN BOX SEND OUT TYPE CODE TESTS RESULT OUT OF RANGE REFERENCE UNITS LAB L801.1541 Normal [facility] LAB TEST Result Comment: Sent directly to testing facility per ordering physician. 04/27/18 0916 MYOUNG Performed By: #### L801.1541 #### [facility] [address] [place], [address] PEDIATRIC ASSISTANT OFFICE VISIT Observed: 03/13/2018 Status: F Source: [place] REPORT 8:47 AM [facility] REPOSITORY [facility] [address] [place] [address] OFFICE VISIT Date of Service: 03/13/18 MR#: [id number] Acct: [id number] Name: SANIYA SAHU Rep #: [id number] : 1990 Provider: JAEL Valentine Age/Sex: 28/F Location: [facility] [place] Status: Signed Intake Vital Signs03/13/18 Height 5 ft 7 in 03/13/18 Weight: 158 lb 2 oz 03/13/18 Body Mass Index (BMI) 24.7 03/13/18 Blood Pressure 123/80 Intake Visit Reasons: 14 WEEK OB Chief Complaint: est ob Ventilation Worker Required: No Is patient in pain?: No Allergies No Known Allergies Allergy (Verified 03/13/18 08:27) Medications lactobacillus combination no.8 3 billion cell capsule 3,000 mmu cells PO QDAY 02/13/18 [History Confirmed 03/13/18] vitamin,calcium,jfxflync-ykzu-jftub acid tablet 1 tab PO QDAY 02/13/18 [History Confirmed 03/13/18] promethazine 12.5 mg tablet 12.5 mg PO Q6H PRN 02/13/18 [History Confirmed 03/13/18] Last Menstral Period: 12/06/17 Zika: Zika virus screening: Negative : No PFSH PFSH Medical History D AND C (Acute) (Acute) Vertebral artery dissection (Acute) Family History Mother Parkinson disease Social History Smoking Status: Never smoker alcohol intake: never substance use type: does not use caffeine: Yes what type of physical activity do you participate in: walking, running frequency: 1-2 times per week seatbelt use: always do you feel safe at home: Yes additional social history: Spouse Tim Pregancy History 2 Elective abortions Hx Para 0 Spontaneous abortions 1 HPI 14 WEEK OB: Details: SANIYA SAHU is a 28 year old who presents for routine OB visit. OB Visit LÁZARO Calculator Estimated Delivery Date 09/12/18 Based on LMP (certain) 12/06/17 Current WG 13w 6d Number 1 Expected Delivery Route/Plan Specific Issue/Plans flu vaccine: no minichart given: yes tdap vaccine: [] rhogam: [] LARC form signed: [] labor support person: Meño pain management: epidural cut cord/dad catch: yes : yes PP control planned: [] special requests: [] Initial Weight: Not Recorded Date Weight BP Urine PFHR FuHt Pres MCTX DilatioFetal SVisit NProvideComment rot ov n t ote r s EGA Ef Gluco faced se 02/14/1156 lb 127/81 175 8 9w 6d Visit Notes Visit Date: 03/13/18 Nausea improved. No VB, LOF. OSVALDO Ellington on 03/13/18 Visit Date: 02/13/18 No visit notes to display ACOG First Trimester First Trimester: Discussed Diagnostics Diagnostics Labs Blood Type A POSITIVE 02/13/18 Antibody Screen NEGATIVE 02/13/18 Hct 36.2 % (37-47) L 02/13/18 Hgb 12.3 g/dl (12.0-15.0) 02/13/18 Rubella IgG Antibody 238.9 IU/mL 02/13/18 RPR NONREACTIVE (NONREACTIVE) 02/13/18 Hep Bs Antigen Negative (Negative) 02/13/18 Chlam trachomat DNA PCR Negative (Negative) 02/13/18 N.gonorrhoeae DNA (PCR) Negative (Negative) 02/13/18 Miscellaneous Test 03/05/18 Details: HIV: Urine Culture: Sequential Screen: NIPT Screen: Results [id number] Office Urine Glucose Negative Last Edit by Mavis Hawley on 03/13/18 08:44 Office Urine Protein Negative Last Edit by Mavis Hawley on 03/13/18 08:44 Assessment AND Plan Problems 1. Encounter for supervision of normal first in first trimester Z34.01 PRR LÁZARO 09/12/18 Meño 2. 13 weeks gestation of Z3A.13 Plan Orders placed: none First Seq screen completed with normal NT Reviewed of labor precautions, movement/kick counts ACOG trimester education reviewed and updated See problem list details for updated plan of care Gestational age appropriate handout given RTO: 4 weeks Orders Orders: Coding Level of Care Code OB Routine Diagnoses Encounter for supervision of normal first in first trimester Z34.01 Normal : normal first Trimester: first trimester 13 weeks gestation of Z3A.13 03/13/18 0847 <Electronically signed by Claudette RILEY> Date Claudette PAIGEC Cosigner Signature: Date (if applicable) CC: MISCELLANEOUS LAB Collected: 03/05/2018 Status: F Source: [place] PROCEDURE 12:50 PM [facility] REPOSITORY Order Comment: Test(s) Ordered: SEQUENTIAL SCREENING SEND OUT GREEN BOX TYPE CODE TESTS RESULT OUT OF RANGE REFERENCE UNITS LAB L801.1541 Normal [facility] LAB TEST Result Comment: Sent directly to testing facility per ordering physician. 03/10/18 1522 MYOUNG Performed By: #### L801.1541 #### [facility] [address] [place], [address] CBC W/DIFF, AUTOMATED Collected: 02/13/2018 Status: F Source: [place] 4:49 PM [facility] REPOSITORY TYPE CODE TESTS RESULT OUT OF RANGE REFERENCE UNITS LAB L100.1000 4.4-11.0 K/mm3 Normal WBC 9.8 LAB L100.1200 4.2-5.4 M/mm3 Low RBC 4.01 LAB L100.1300 12.0-15.0 g/dl Normal HGB 12.3 LAB L100.1400 37-47 % Low HCT 36.2 LAB L100.1500 81-99 fL Normal MCV 90.3 LAB L100.1600 27.0-32.0 pg Normal MCH 30.7 LAB L100.1700 32-36 g/gl Normal MCHC 34.0 LAB L100.1810 11.6-14.6 % Normal RDW CV 12.7 LAB L100.1820 35.1-43.9 fl Normal RDW SD 41.1 LAB L100.1900 150-450 K/mm3 Normal PLT 310 LAB L100.2000 6.2-12.0 fl Normal MPV 10.8 LAB L100.2100 47-70 % Normal NEUT% 64.6 LAB L100.2200 19-41 % Normal LY% 25.9 LAB L100.2300 0-10 % Normal MONO% 8.4 LAB L100.2400 0-5 % Normal EO% 0.5 LAB L100.2500 0-1 % Normal BASO% 0.3 LAB L100.2550 0.0-0.9 % Normal IM GRAN % 0.300 Result Comment: IG% - Immature Granulocytes (promyelocytes, myelocytes and metamyelocytes) > 1% indicates that a LEFT SHIFT is Present. LAB L100.2620 2.0-7.7 X10 3/uL Normal Absolute Neut 6.3 LAB L100.2720 0.83-4.51 X10 3/ul Normal Absolute Lymph 2.53 Performed By: #### L100.0100 #### [facility] [address] [place], [address] TYPE AND SCREEN Collected: 02/13/2018 Status: F Source: [place] 4:49 PM [facility] REPOSITORY Order Comment: Reason for Type AND Screen/Red Cells: TYPE CODE TESTS RESULT OUT OF RANGE REFERENCE UNITS LAB B10.0800 A Normal BLOOD TYPE GEL POSITIVE LAB B100.4000 Normal Antibody NEGATIVE Screen Performed By: #### B101.7450 #### [facility] [address] [place], [place], [id number] #### L3100.0390 #### [facility] (refer to report for specific site) refer to report for address and phone number HEPATITIS B SURFACE Collected: 02/13/2018 Status: F Source: [place] AG 4:49 PM [facility] REPOSITORY TYPE CODE TESTS RESULT OUT OF RANGE REFERENCE UNITS LAB L3100.0400 Negative Normal HB Negative SURF AG Result Comment: Performed at: [facility] [id number] Slackline Operator: Rc Anguiano PhD, Phone: [phone] Performed By: #### B101.7450 #### [facility] [place], [address] #### L3100.0390 #### [facility] (refer to report for specific site) refer to report for address and phone number RUBELLA IGG Collected: 02/13/2018 Status: F Source: [place] 4:49 PM [facility] REPOSITORY TYPE CODE TESTS RESULT OUT OF RANGE REFERENCE UNITS LAB L509.4000 IU/mL Normal Rubella IgG 238.9 Result Comment: Antibody results Interpretation of Immune Status < 5 IU/ml Presumed Non-immune 5 - < 10 IU/ml Equivocal > or = 10 IU/ml Presumed Immune Performed By: #### L509.4000, L3890.6005, L700.5000 #### [facility] [place] [facility] [address] HIV - [facility] Collected: 02/13/2018 Status: F Source: [place] 4:49 PM [facility] REPOSITORY TYPE CODE TESTS RESULT OUT OF RANGE REFERENCE UNITS LAB L3890.6005 Nonreactive Normal HIV - [facility] Non-Reactive Performed By: #### L509.4000, L3890.6005, L700.5000 #### [facility] [address] [place], [place], [id number] RAPID PLASMIN REAGIN Collected: 02/13/2018 Status: F Source: [place] (RPR) 4:49 PM [facility] REPOSITORY TYPE CODE TESTS RESULT OUT OF REFERENCE UNITS RANGE LAB L700.5000 NONREACTIVE NONREACTIVE Normal RPR Performed By: #### L509.4000, L3890.6005, L700.5000 #### [facility] [place], [address] CT/NG [facility] BY PCR Collected: 02/13/2018 Status: F Source: [place] 4:45 PM [facility] REPOSITORY TYPE CODE TESTS RESULT OUT OF RANGE REFERENCE UNITS LAB L8200.2100 Negative Normal Chlam Negative Trac PCR LAB L8200.2200 Negative Normal NG by Negative PCR Performed By: #### L8200.2000 #### [facility] [address] [place], [address] Observed: 02/13/2018 Status: F Source: [place] CULTURE, URINE 4:45 PM [facility] REPOSITORY RESULT(S) PREVIOUSLY REPORTED ON MANUAL REQUISITION DURING DOWNTIME. Urine Culture ORGANISM 1: Mixed Gram Positive Organisms [place] Count 1000-10,000 MIX CULTURE Mixed contaminants. Submit a new specimen if indicated. Performed By: #### M100.0650 #### [facility] [address] [place], [address] PAP I-G W/RFX Collected: 02/13/2018 Status: F Source: [place] HRHPV-APTIMA 4:45 PM [facility] REPOSITORY Order Comment: CYTOLOGY INFORMATION: - CLINICAL INFORMATION: HYSTERECTOMY - DATE LMP/MENOPAUSE: LMP - COLLECTION VIAL: Thin Prep Vial - RECEPTION SPECIALIST SOURCE: CERVICAL - COLLECTION TECHNIQUE: OTHER Specimen Comment: [id number] Specimen Comment: No. of containers..01 ThinPrep Vial TYPE CODE TESTS RESULT OUT OF RANGE REFERENCE UNITS LAB L7400.0800 . Normal DIAGN Comment Result Comment: NEGATIVE FOR INTRAEPITHELIAL LESION AND MALIGNANCY. LAB L7400.0900 . Normal ADEQ Comment Result Comment: Satisfactory for evaluation. Endocervical and/or squamous metaplastic cells (endocervical component) are present. LAB L7400.1400 . Normal PERFORM Comment Result Comment: Jessica Zamora Auto Air Conditioning Installer (ASCP) LAB L7400.2575 . Normal TEST METHOD Comment Result Comment: This liquid based ThinPrep(R) pap test was screened with the use of an image guided system. LAB L7400.2600 . Normal . COMM LAB L7400.2700 . Normal PAPSMR Comment Result Comment: The Pap smear is a screening test designed to aid in the detection of premalignant and malignant conditions of the uterine cervix. It is not a diagnostic procedure and should not be used as the sole means of detecting cervical cancer. Both false-positive and false-negative reports do occur. LAB L7400.2800 . Normal HPV RFLX Comment Result Comment: The HPV DNA reflex criteria were not met with this specimen result therefore, no HPV testing was performed. Performed at: - [facility], [place] [id number] [employer] Operator: Katie Kruger MD, Phone: [phone] Performed By: #### L7400.0353 #### [facility] (refer to report for specific site) refer to report for address and phone number PEDIATRIC ASSISTANT OFFICE VISIT Observed: 02/13/2018 Status: F Source: [place] REPORT 4:39 PM [facility] [address] [place] [address] OFFICE VISIT Date of Service: 02/13/18 MR#: [id number] Acct: [id number] Name: SANIYA SAHU Rep #: [id number] : 1990 Provider: Flower Caal MD Age/Sex: 27/F Location[place] [facility] [place] [facility] [place] Status: Signed Intake Vital Signs02/13/18 Height 5 ft 8 in 02/13/18 Weight: 156 lb 02/13/18 Body Mass Index (BMI) 23.7 02/13/18 Blood Pressure 127/81 Intake Visit Reasons: NOB - LMP 12/06- WILL BE OUT OF TOWN AT 8 WEEKS Ventilation Worker Required: No Allergies No Known Allergies Allergy (Verified 02/13/18 15:59) Medications lactobacillus combination no.8 3 billion cell capsule 3,000 mmu cells PO QDAY 02/13/18 [History Confirmed 02/13/18] vitamin,calcium,upyfqpdt-kuef-yismu acid tablet 1 tab PO QDAY 02/13/18 [History Confirmed 02/13/18] promethazine 12.5 mg tablet 12.5 mg PO Q6H PRN 02/13/18 [History Confirmed 02/13/18] Last Menstral Period: 12/06/17 Zika: Zika virus screening: Positive (In Critical access hospital) : No PFSH PFSH Medical History D AND C (Acute) (Acute) Vertebral artery dissection (Acute) Family History Mother Parkinson disease Social History Smoking Status: Never smoker alcohol intake: never substance use type: does not use caffeine: Yes what type of physical activity do you participate in: walking, running frequency: 1-2 times per week seatbelt use: always do you feel safe at home: Yes additional social history: Spouse Tim Pregancy History 2 Elective abortions Hx Para 0 Spontaneous abortions 1 HPI NOB - LMP 12/06- WILL BE OUT OF TOWN AT 8 WEEKS: Details: SANIYA SAHU is a 27 year old who presents for routine OB visit. OB Visit LÁZARO Calculator Estimated Delivery Date 09/12/18 Based on LMP (certain) 12/06/17 Current WG 9w 6d Number 1 Expected Delivery Route/Plan Specific Issue/Plans flu vaccine: no minichart given: [] tdap vaccine: [] rhogam: [] LARC form signed: [] labor support person: [] pain management: [] cut cord/dad catch: [] : [] PP control planned: [] special requests: [] Initial Weight: Not Recorded Date Weight BP Urine PrFHR FuHt Pres MoCTX DilationFetal StVisit NoProviderComments E ot v te GA G Effac lucose ed ACOG First Trimester First Trimester: Discussed Diagnostics Diagnostics Labs Blood Type A POSITIVE 08/15/17 Antibody Screen NEGATIVE 08/15/17 Hct 37.6 % (37-47) 08/15/17 Hgb 12.7 g/dl (12.0-15.0) 08/15/17 Chlam trachomat DNA PCR Negative (Negative) 08/08/17 N.gonorrhoeae DNA (PCR) Negative (Negative) 08/08/17 Details: HIV: Urine Culture: Sequential Screen: NIPT Screen: Assessment AND Plan Problems 1. Encounter for supervision of normal first in first trimester Z34.01 LÁZARO 09/12/18 Meño 2. 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 see problem list details for updated plan management information. [place] appropriate handout given. Orders Orders: Referrals: Coding Level of Care Code OB Routine Diagnoses Encounter for supervision of normal first in first trimester Z34.01 Normal : normal first Trimester: first trimester 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 02/13/18 1639 <Electronically signed by Flower Caal MD> Date Flower Caal MD Cosigner Signature: Date (if applicable) CC: URGENT CARE VISIT Observed: 01/30/2018 Status: F Source: [place] REPORT 9:[address] [place] [address] OFFICE VISIT Date of Service: 01/19/18 MR#: [id number] Acct: [id number] Name: SANIYA SAHU Rep #: [id number] : 1990 Provider: Irwin CAMPOS Age/Sex: 27/F Location[place] [facility] [place] Status: Signed Intake Vital Signs01/19/18 Height 5 ft 8 in Intake Visit Reasons: SORE THROAT/MUCUS Chief Complaint: Sore throat Is patient in pain?: No Allergies No Known Allergies Allergy (Verified 01/19/18 07:49) Medications L.acidoph,Paracasei, B.lactis [Probiotic] 1 ea PO DAILY 08/14/17 [History Confirmed 08/14/17] diphenhydramine 50 mg/30 mL oral liquid 25 mg PO QHS PRN 01/19/18 [History Confirmed 01/19/18] Patient : Yes [facility] Medical History D AND C (Acute) (Acute) Vertebral artery dissection (Acute) Family History Mother Parkinson disease Social History Smoking Status: Never smoker alcohol intake: never substance use type: does not use caffeine: Yes what type of physical activity do you participate in: walking, running frequency: 1-2 times per week seatbelt use: always do you feel safe at home: Yes additional social history: Spouse Tim PEREIRA HPI Chief Complaint: Sore throat Details: SANIYA SAHU, is a 27 F who presents to the office today for initial evaluation approximately 48 hour history of sore throat. Patient notes complaints of discomfort with swallowing describing it as moderate aching though noting no difficulty with swallowing or drooling. She notes occasional chills though no complaints of fever, sweats, rash, chest pain/shortness of breath, or cough. She is a non-smoker, noting she is approximately 6 weeks gestation. She notes her spouse with similar symptoms currently. No over the products attempted to assist with symptoms. No other associated symptoms no other alleviating or aggravating factors. ROS Const Constitutional: Positive for chills; no excessive sweating, abnormal sleep pattern, fever(s), night sweats or body ache Eyes Eyes: No change in vision ENT ENT: Positive for nasal congestion and sore throat; no abnormal hearing, ear pain, ear discharge, ear pressure, hearing loss, post nasal drip or sinus pressure Resp Respiratory: No cough, chest congestion or shortness of breath Cardio Cardiology: No excessive sweating, chest pain at rest, chest pain with exertion, shortness of breath, dyspnea on exertion, irregular heart rhythm, generalized swelling or leg pain with exertion Gastro GI: No abdominal pain, change in stool character or change in bowel habits Skin Skin: No rash Neuro Neurology: No abnormal hearing, abnormal speech or abnormal movements Psych Psychiatric: No abnormal sleep pattern Endo Endocrine: No excessive sweating Exam Const General: cooperative, healthy appearing, no acute distress, comfortable Nutritional Appearance: average body habitus Orientation: alert, awake, oriented x3 [facility] Head: normal to inspection Ears: hearing grossly normal bilaterally, external ears normal, TM's normal bilaterally, EAC's normal Nose: external nose normal, nares normal, septum normal, nasal discharge clear Face and sinus: normal facial exam, sinuses nontender, face symmetric Mouth: tongue normal, lip normal, oropharynx normal, oral mucosae normal Teeth and gingiva: dentition normal, gingiva normal Throat: uvula midline, posterior oropharynx normal, abnormal tonsil (Trace erythema; rapid strep test today negative) bilaterally, no postnasal drainage Eyes General: appearance normal, both eyes and all related structures Neck Neck: normal visual inspection, full ROM, no lymphadenopathy, no meningeal signs, supple Neck mass: No Thyroid: thyroid normal Lymphatic: no lymphadenopathy noted Chest Chest palpation AND inspection: normal inspection of the chest Resp Effort AND Inspection: normal respiratory effort, able to speak in complete sentences, symmetric chest movement, no cough Auscultation: Bilateral: Clear to Auscultation Cardio Palpation: normal PMI Rate: tachycardic Rhythm: regular rhythm Heart Sounds: S1 normal, S2 normal, no gallops, no murmurs, no rubs Pulses: radial pulses present Skin General: no rashes or lesions noted Neuro General: alert, awake, oriented x3, gait normal Cognition: normal cognition Speech: speech normal Gait: normal gait Motor: muscle tone normal throughout Sensory Exam: no sensory deficits noted Psych Appearance: grossly normal Mental Status: mental status grossly normal Mood: congruent mood Affect: normal affect Speech and Movement: speech and movement normal Attitude: cooperative Thought Process: normal Thought Content: normal Judgment: judgment good Results BMSRAPIDSTREPA Office Rapid Strep A Negative Last Edit by Radha Wang on 01/19/18 07:55 Assessment AND Plan Problems 1. URI (upper respiratory infection) J06.9 2. Pharyngitis J02.9 Plan - BETH Akbar Patient aware today's rapid strep test was negative therefore throat culture sent to lab for further evaluation. Clear fluids, rest, Tylenol/Benadryl as needed for symptomatic relief. Avoid tobacco smoke exposure. Follow-up with PCP in 7-10 days should symptoms not improve, sooner should symptoms worsen or any other concerns develop. Patient states acknowledging understanding all the above. This note was generated with Linquet dictation software. It may contain incorrect words, spelling, and punctuation that were not noted in checking the note before signing. Orders Orders: Coding Level of Care Code Off vis,est,level 3 Diagnoses URI (upper respiratory infection) J06.9 Pharyngitis J02.9 01/30/18 0937 <Electronically signed by Rey CAMPOS> Date Rey CAMPOS 01/19/18 0904<Electronically signed by Irwin CAMPOS> Cosigner Signature: Date (if applicable) Irwin Delong CC: PEDIATRIC ASSISTANT OFFICE VISIT Observed: 01/26/2018 Status: F Source: [place] REPORT 10:44 AM [facility] [address] [place] [address] OFFICE VISIT Date of Service: 01/26/18 MR#: [id number] Acct: [id number] Name: SANIYA SAHU Rep #: [id number] : 1990 Provider: Flower Caal MD Age/Sex: 27/F Location[place] [facility] [place] [facility] [place] Status: Signed Intake Vital Signs01/26/18 Height 5 ft 8 in 01/26/18 Weight: 148 lb 2 oz 01/26/18 Body Mass Index (BMI) 22.5 01/26/18 Blood Pressure 117/79 Intake Visit Reasons: SCAN ONLY Ventilation Worker Required: No Accompanied by: Is patient in pain?: No Allergies No Known Allergies Allergy (Verified 01/26/18 10:03) Medications acetaminophen 325 mg capsule 325 mg PO Q6H PRN 01/26/18 [History Confirmed 01/26/18] guaifenesin ER 600 mg tablet, extended release 12 hr 600 mg PO Q12H 01/26/18 [History Confirmed 01/26/18] Is last menstrual period known: Yes Last Menstral Period: 12/06/17 Post menopausal: No Patient : Yes : No [facility] Medical History D AND C (Acute) (Acute) Vertebral artery dissection (Acute) Family History Mother Parkinson disease Social History Smoking Status: Never smoker alcohol intake: never substance use type: does not use caffeine: Yes what type of physical activity do you participate in: walking, running frequency: 1-2 times per week seatbelt use: always do you feel safe at home: Yes additional social history: Spouse Tim HPI SCAN ONLY: Details: SANIYA SAHU is a 27 year old who presents for early confirmation, she denies any bleeding and is planning a new ob next month. limited bedside scan done FHT seen1 40s and CRL cosnistent with LMP. Female Reproductive History Last Menstral Period: 12/06/17 Cycle Length: 21-35 Pregancy History 1 Elective abortions Hx Para Spontaneous abortions 1 Assessment AND Plan Problems 1. Encounter for supervision of normal first in first trimester Z34.01 LÁZRAO 09/12/18 Meño 2. Nausea and vomiting during O21.9 Plan fiable iup seen fu for new ob visit, phenergan ordered Medications Discontinued: promethazine Discontinued Reason: Order Rysljb09.5 mg PO Q6H PRN nausea and vomiting julia Coding Level of Care Code No Charge Diagnoses Encounter for supervision of normal first in first trimester Z34.01 Normal : normal first Trimester: first trimester Nausea and vomiting during O21.9 01/26/18 1044 <Electronically signed by Flower Caal MD> Date Flower Caal MD Cosigner Signature: Date (if applicable) CC: URGENT CARE VISIT Observed: 01/24/2018 Status: F Source: [place] REPORT 10:04 AM [facility] REPOSITORY [facility] [address] [place], [place] [id number] OFFICE VISIT Date of Service: 01/24/18 MR#: [id number] Acct: [id number] Name: SANIYA SAHU Brandon Rep #: [id number] : 1990 Provider: Thuan Madrid NP Age/Sex: 27/F Location: [facility] [place] Status: Signed Intake Vital Signs01/24/18 Height 5 ft 8 in Intake Visit Reasons: WORSENING COLD Chief Complaint: Sore throat Is patient in pain?: No Allergies No Known Allergies Allergy (Verified 01/24/18 09:44) Medications L.acidoph,Paracasei, B.lactis [Probiotic] 1 ea PO DAILY 08/14/17 [History Confirmed 01/24/18] diphenhydramine 50 mg/30 mL oral liquid 25 mg PO QHS PRN 01/19/18 [History Confirmed 01/24/18] Patient : Yes [facility] Medical History D AND C (Acute) (Acute) Vertebral artery dissection (Acute) Family History Mother Parkinson disease Social History Smoking Status: Never smoker alcohol intake: never substance use type: does not use caffeine: Yes what type of physical activity do you participate in: walking, running frequency: 1-2 times per week seatbelt use: always do you feel safe at home: Yes additional social history: Spouse Tim HPI HPI Chief Complaint: Sore throat Details: SANIYA SAHU, is a 27 F who presents to the office today for a follow-up of her sore throat. She was seen on 01/19/2018 with similar complaints at this location and has not gotten any better. She is 7 weeks at this time. The patient states her main concern is that she does not know which clkd-jcn-chpliwz treatments to try due to her status. So far she has only been using plain dextromethorphan and Tylenol for her sore throat and upper respiratory symptoms. She states that her eyes are watery and itchy at times, her nose is running, and she continues to have a sore throat which is alleviated by the Tylenol that she is taking. She denies any other aggravating or relieving symptoms. She does not think that her symptoms are necessarily worsening, however they are persisting. She otherwise denies any fever, chills, nausea, vomiting, shortness of breath, chest pain or pressure, syncope or presyncopal episodes. ROS Const Constitutional: No weakness, frequent falls or change in appetite Eyes Eyes: Positive for other (Itchy eyes); no discharge or eye pain ENT ENT: Positive for sore throat; no abnormal hearing, ear pain, ear discharge, ear pressure or sinus pressure Resp Respiratory: No cough, wheezing or shortness of breath Cardio Cardiology: No chest pain at rest, chest pain with exertion, shortness of breath, dyspnea on exertion, lightheadedness, irregular heart rhythm, fast heart rate, palpitations, orthopnea or generalized swelling Gastro GI: No abdominal pain, change in bowel habits, constipation, diarrhea, vomiting or nausea/dyspepsia Musc Musculoskeletal: No tingling or numbness Neuro Neurology: No weakness, unsteady gait/balance, dizziness, frequent falls, loss of vision, memory loss, abnormal hearing, tingling or numbness Psych Psychiatric: No memory loss, No change in appetite, No anxiety, No depression, No Thoughts of harming yourself/Others Aller/Imm Allergy/Immunologic: No wheezing Exam Const General: cooperative, healthy appearing, no acute distress, comfortable Nutritional Appearance: average body habitus Orientation: alert, awake, oriented x3 HENMT Head: normal to inspection Ears: hearing grossly normal bilaterally, external ears normal, TM's normal bilaterally, EAC's normal Nose: external nose normal, nares normal, septum normal, nasal discharge clear Face and sinus: normal facial exam, sinuses nontender, face symmetric Mouth: tongue normal, lip normal, oropharynx normal, oral mucosae normal Teeth and gingiva: dentition normal, gingiva normal Throat: uvula midline, posterior oropharynx normal, no postnasal drainage Eyes General: appearance normal, both eyes and all related structures Neck Neck: normal visual inspection, full ROM, no lymphadenopathy, no meningeal signs, supple, no lymphadenopathy noted Neck mass: No Thyroid: thyroid normal Lymphatic: no lymphadenopathy noted Chest Chest palpation AND inspection: normal inspection of the chest Resp Effort AND Inspection: normal respiratory effort, able to speak in complete sentences, symmetric chest movement, no cough Auscultation: Bilateral: Clear to Auscultation Cardio Palpation: normal PMI Rate: tachycardic Rhythm: regular rhythm Heart Sounds: S1 normal, S2 normal, no gallops, no murmurs, no rubs Pulses: radial pulses present Skin General: no rashes or lesions noted Neuro General: alert, awake, oriented x3, gait normal Cognition: normal cognition Speech: speech normal Gait: normal gait Motor: muscle tone normal throughout Sensory Exam: no sensory deficits noted Psych Appearance: grossly normal Mental Status: mental status grossly normal Mood: congruent mood Affect: normal affect Speech and Movement: speech and movement normal Attitude: cooperative Thought Process: normal Thought Content: normal Judgment: judgment good Assessment AND Plan Problems 1. URI (upper respiratory infection) J06.9 2. Pharyngitis J02.9 Plan The patient continues to have upper respiratory symptoms. Given her status, she is hesitant to try lfoj-enk-xwgchoz treatments. Discussed that with her upper respiratory symptoms that it is safe to take guaifenesin and dextromethorphan for the cough and mucolytic action of this. Also would advise her to take an antihistamine as well. Discussed taking Benadryl at night and then a nondrowsy antihistamine during the day as well. If patient's symptoms persist by Friday, then the duration of her symptoms would be 7 days and an antibiotic may be considered at that time. Discussed either calling our office at that time her following up and we will consider the use of amoxicillin. Patient verbalized understanding. Patient educated on red flag symptoms that require urgent medical attention. Continue with uefl-trh-gegpdst supportive pharmacologic management including Tylenol for sore throat and increasing fluid intake. The previous throat culture was negative for group A strep. Kasey disclaimer Coding Level of Care Code Off vis,est,level 3 Diagnoses URI (upper respiratory infection) J06.9 Pharyngitis J02.9 01/24/18 1004 <Electronically signed by Thuan RILEY> Date Thuan RILEY Cosigner Signature: Date (if applicable) CC: Observed: 01/19/2018 Status: F Source: [place], R/O STREP A 8:00 AM [facility] REPOSITORY JERAMY Culture No Group A Beta Streptococcus isolated. * This cultures intended use is to screen for Beta Streptococcus A only. All other pathogens and potential pathogens will not be screened for or reported. If a complete workup of all potential pathogens is indicated an order for a routine throat culture is required. Performed By: #### M100.010 #### [facility] [place], [address] PROGRESS Observed: 12/25/2017 Status: COMPLETED Source: [place] 2:32 PM [facility] [place] REPOSITORY HNO ID: [id number] Author: Shorty Page (Jael) Noman Service: (none) Author Type: Nurse Practitioner Type: Progress Notes Filed: 12/25/2017 5:43 PM Note Text: Chief Complaint Patient presents with: Recheck: 1 week F/U on headache HPI Saniya Sahu is a 27 year old female who presents here today for follow up Headaches. Seen one week ago, started on Prednisone taper and given rx Maxalt. Took Maxalt x 1, notes pain intensified, did not like how she felt so has not taken anymore. Prednisone taper, she reports 2 days headache free then FERNANDEZ resumed with same intensity and frequency. Denies vomiting but notes decreased appetite and nausea. She reports she is able to sleep through the night. Typically wakes feeling well and FERNANDEZ free, then notes FERNANDEZ resumes and remain constant rest of the day. Last Roxanne took 1000 mg Tylenol without benefit. FERNANDEZ starts posterior neck, radiates to top of head, describes as hot poker, heat, sensation with fatigue feeling in neck muscles. She denies any photo/phonophobia, no vision changes such as double or blurry vision. No neurological sx including numbness/tingling, weakness to limbs or poor coordination. 12/19/17:HPI Saniya Sahu is a 27 year old female who presents here today for Above Complaints. Seen earlier in the week, note reviewed. She has had headache on and off for 8 days, migrating from top of head, neck and base of scalp. Describes as burning, on fire. When on top of head it is consistently on right side. Denies pain behind eyes. Previous h/o migraines as a child, would usually escalate to point of vomiting then completely resolve. Current FERNANDEZ, is different. Has been taking Tylenol, then stopped when seen earlier and tried Ibupforen, which caused nausea so now back to Tylenol. She notes some nausea, no vomiting. Denies light or sound sensitivity. Rating her current FERNANDEZ pain 3-4 out of 10, last night was 8-9 out of 10, with benefit from Tylenol. Relates always low level dull pain, never completely resolved. Timing is inconsistent. Able to sleep through the night, feeling rested each morning. Denies any neurological deficits, no loss of balance or coordination. Denies any numbness or tingling. She is mid cycle with her menses. Regular cycles. ? Past medical history, appointments, medications, allergies reviewed. Previous Medical History PAST MEDICAL HISTORY Diagnosis Date - Anemia Resolved - Anxiety 11/06/2012 Resolved - Mitral valve prolapse 2010 - Panic anxiety syndrome 12/08/2012 Resolved - Vertebral artery dissection (HCC) 03/04/2013 no hormonal control recommended Previous Surgical History PAST SURGICAL HISTORY Procedure Laterality Date - EGD W/O OR W/BRUSH/WASH 02/17/14 EGD - SUCTION D AND C N/A 08/15/2017 Missed @ 9 weeks Family History FAMILY HISTORY Problem Relation Age of Onset - anxiety [OTHER] Mother - parkinson's disease [OTHER] Mother - sleep apnea [OTHER] Mother - anxiety [OTHER] Father - Headache Maternal Grandmother - Stroke Maternal Grandmother - Arthritis Paternal Grandmother - Cancer Paternal Grandfather Leukemia - anxiety [OTHER] Brother Patient Allergies ALLERGIES Allergen Reactions - Laundry Detergent [* Rash Purex Current Medications Current Outpatient Prescriptions on File Prior to Visit: predniSONE (DELTASONE) 10 mg tablet Take 4 tabs daily x 3 days, then 3 tabs x 3 days, 2 tabs x 3 days, then 1 tab x3 days with food. rizatriptan (MAXALT-ASSOCIATE MEDIA DIRECTOR) 10 mg disintegrating tablet May repeat in 2 hours if needed COMPOUNDED PRESCRIPTION Taking 2 probiotic pills a night of 100 mg per capsule izrhrcsf-jqkn-PW-calcium ANDmins (ONE-A-DAY WOMEN'S PETITES) 9 mg iron -200 mcg tab Take 1 tablet by mouth once daily. DOCOSAHEXANOIC ACID/EPA (FISH OIL ORAL) Take by mouth. No current facility-administered medications on file prior to visit. 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[employer]* Social History Main Topics Smoking status: Never Smoker Smokeless status: Never Used Alcohol use: No Drug use: No Sexual activity: Yes Partners with: Male control/protection: None Other Topics Concern Service No Blood Transfusions No Caffeine Concern No Occupational Exposure No Hobby Hazards No Sleep Concern No Stress Concern No Weight Concern No Special Diet No Back Care Yes Exercise Yes Bike Helmet Yes Seat Belt Yes Self-Exams Yes Social History Narrative 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 Review of Symptoms REVIEW OF SYSTEMS PAIN ASSESSMENT: CURRENTLY HAVING PAIN; PAIN SCALE: 7 on 0-10 scale per patient, see HPI GENERAL: No weight loss, malaise or fevers NECK: Negative for lumps, goiter, pain and significant neck swelling RESPIRATORY: Negative for cough, hemoptysis, wheezing, COPD, dyspnea or shortness of breath CARDIOVASCULAR: Negative for chest pain, leg swelling, hypertension, CHF or palpitations NEURO: No history of headaches, syncope, paralysis, seizures or tremors EXAM: BP 138/68 Pulse 91 Temp 37.4 ?C (99.4 ?F) (Tympanic) Resp 16 Wt 67.6 kg (149 lb) BMI 23.69 kg/m2 General Appearance: Well appearing, alert, in no acute distress, well-hydrated, well nourished.. Skin: Skin color, texture, turgor normal, no suspicious rashes or lesions. Head: Normocephalic, no masses, lesions, tenderness or abnormalities. Eyes: Anicteric sclera. Pupils are equally round and reactive to light. Extraocular movements are intact. . Ears: External ears normal, canals clear. Neck: Supple, no adenopathy; thyroid symmetric, normal size, no bruits. Lungs: Lungs clear to auscultation. No wheezing, rhonchi, rales. Heart: RRR without murmur, gallop, or rubs. No ectopy. Neurologic: Gait normal. . Sensation grossly intact., Negative findings: R handed., speech normal, mental status intact, cranial nerves 2-12 intact. Health Maintenance List PAP EVERY 3 YEARS (21-30 YEAR OLDS) due on 02/10/2018 INFLUENZA(Season Ended) due on 05/16/2018 TETANUS due on 01/16/2019 Data reviewed Previous CTA neck-02/2013 MRI Brain, MRA Brain and Carotid MRA w/o contrast 05/2013. ASSESSMENT/PLAN: 1. Headache, unspecified headache type - ICD9: 784.0, ICD10: R51 (primary diagnosis) - Given Toradol here in office, no side effects after 15 minute observation. No reported benefit either. Will have her trial 400 mg Ibuprofen as needed for the FERNANDEZ and also add Amitriptyline 10 mg at hs for ? Tension type headache. - Recheck in one week, sooner if needed or directed to ED if increase in sx or neurological sx as discussed with patient and . - MRI BRAIN WO IVCON - MRA BRAIN WO IVCON - MRA CAROTID WO IVCON - KETOROLAC 60 MG/2 ML INTRAMUSCULAR SOLUTION - AMITRIPTYLINE 10 MG TABLET 2. 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 Will check imaging. - MRI BRAIN WO IVCON - MRA BRAIN WO IVCON - MRA CAROTID WO IVCON Shorty Tineo, MSN CIRCULAR SAW FILER.SUGAR CANE PLANTER MACHINE OPERATOR CNOV Observed: 12/25/2017 Status: COMPLETED Source: [place] 2:20 PM [facility] REPOSITORY Office Visit ([facility]) SANIYA SAHU ([id number]) 1990 F NFR Date Time Provider Department 12/25/17 2:20 PM SHORTY TINEO (ROBOTICS ENGINEER) [facility] During your visit today, we recorded the following information about you: Temperature Pulse Respiration Blood pressure 99.4 degrees 91/minute 16/minute 138/68 Weight 67.6 kg Shorty Tineo, MSN CIRCULAR SAW FILER.SUGAR CANE PLANTER MACHINE OPERATOR 12/25/2017 5:43 PM Signed Chief Complaint Patient presents with: Recheck: 1 week F/U on headache HPI Saniya Sahu is a 27 year old female who presents here today for follow up Headaches. Seen one week ago, started on Prednisone taper and given rx Maxalt. Took Maxalt x 1, notes pain intensified, did not like how she felt so has not taken anymore. Prednisone taper, she reports 2 days headache free then FERNANDEZ resumed with same intensity and frequency. Denies vomiting but notes decreased appetite and nausea. She reports she is able to sleep through the night. Typically wakes feeling well and FERNANDEZ free, then notes FERNANDEZ resumes and remain constant rest of the day. Last Roxanne took 1000 mg Tylenol without benefit. FERNANDEZ starts posterior neck, radiates to top of head, describes as ANDquot;hot pokerANDquot;, heat, sensation with fatigue feeling in neck muscles. She denies any photo/phonophobia, no vision changes such as double or blurry vision. No neurological sx including numbness/tingling, weakness to limbs or poor coordination. 12/19/17:HPI Saniya Sahu is a 27 year old female who presents here today for Above Complaints. Seen earlier in the week, note reviewed. She has had headache on and off for 8 days, migrating from top of head, neck and base of scalp. Describes as burning, on fire. When on top of head it is consistently on right side. Denies pain behind eyes. Previous h/o migraines as a child, would usually escalate to point of vomiting then completely resolve. ANDquot;Current FERNANDEZ, is differentANDquot;. Has been taking Tylenol, then stopped when seen earlier and tried Ibupforen, which caused nausea so now back to Tylenol. She notes some nausea, no vomiting. Denies light or sound sensitivity. Rating her current FERNANDEZ pain 3-4 out of 10, last night was 8-9 out of 10, with benefit from Tylenol. Relates always low level dull pain, never completely resolved. Timing is inconsistent. Able to sleep through the night, feeling rested each morning. Denies any neurological deficits, no loss of balance or coordination. Denies any numbness or tingling. She is mid cycle with her menses. Regular cycles. ? Past medical history, appointments, medications, allergies reviewed. Previous Medical History PAST MEDICAL HISTORY Diagnosis Date - Anemia Resolved - Anxiety 11/06/2012 Resolved - Mitral valve prolapse 2010 - Panic anxiety syndrome 12/08/2012 Resolved - Vertebral artery dissection (HCC) 03/04/2013 no hormonal control recommended Previous Surgical History PAST SURGICAL HISTORY Procedure Laterality Date - EGD W/O OR W/BRUSH/WASH 02/17/14 EGD - SUCTION D ANDamp; C N/A 08/15/2017 Missed @ 9 weeks Family History FAMILY HISTORY Problem Relation Age of Onset - anxiety [OTHER] Mother - parkinson's disease [OTHER] Mother - sleep apnea [OTHER] Mother - anxiety [OTHER] Father - Headache Maternal Grandmother - Stroke Maternal Grandmother - Arthritis Paternal Grandmother - Cancer Paternal Grandfather Leukemia - anxiety [OTHER] Brother Patient Allergies ALLERGIES Allergen Reactions - Laundry Detergent [* Rash Purex Current Medications Current Outpatient Prescriptions on File Prior to Visit: predniSONE (DELTASONE) 10 mg tablet Take 4 tabs daily x 3 days, then 3 tabs x 3 days, 2 tabs x 3 days, then 1 tab x3 days with food. rizatriptan (MAXALT-ASSOCIATE MEDIA DIRECTOR) 10 mg disintegrating tablet May repeat in 2 hours if needed COMPOUNDED PRESCRIPTION Taking 2 probiotic pills a night of 100 mg per capsule ywcgggvk-zoik-XJ-calcium ANDamp;mins (ONE-A-DAY WOMEN'S PETITES) 9 mg iron -200 mcg tab Take 1 tablet by mouth once daily. DOCOSAHEXANOIC ACID/EPA (FISH OIL ORAL) Take by mouth. No current facility-administered medications on file prior to visit. 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[employer]* Social History Main Topics Smoking status: Never Smoker Smokeless status: Never Used Alcohol use: No Drug use: No Sexual activity: Yes Partners with: Male control/protection: None Other Topics Concern Service No Blood Transfusions No Caffeine Concern No Occupational Exposure No Hobby Hazards No Sleep Concern No Stress Concern No Weight Concern No Special Diet No Back Care Yes Exercise Yes Bike Helmet Yes Seat Belt Yes Self-Exams Yes Social History Narrative 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 Review of Symptoms REVIEW OF SYSTEMS PAIN ASSESSMENT: CURRENTLY HAVING PAIN; PAIN SCALE: 7 on 0-10 scale per patient, see HPI GENERAL: No weight loss, malaise or fevers NECK: Negative for lumps, goiter, pain and significant neck swelling RESPIRATORY: Negative for cough, hemoptysis, wheezing, COPD, dyspnea or shortness of breath CARDIOVASCULAR: Negative for chest pain, leg swelling, hypertension, CHF or palpitations NEURO: No history of headaches, syncope, paralysis, seizures or tremors EXAM: BP 138/68 Pulse 91 Temp 37.4 ?C (99.4 ?F) (Tympanic) Resp 16 Wt 67.6 kg (149 lb) BMI 23.69 kg/m2 General Appearance: Well appearing, alert, in no acute distress, well-hydrated, well nourished.. Skin: Skin color, texture, turgor normal, no suspicious rashes or lesions. Head: Normocephalic, no masses, lesions, tenderness or abnormalities. Eyes: Anicteric sclera. Pupils are equally round and reactive to light. Extraocular movements are intact. . Ears: External ears normal, canals clear. Neck: Supple, no adenopathy; thyroid symmetric, normal size, no bruits. Lungs: Lungs clear to auscultation. No wheezing, rhonchi, rales. Heart: RRR without murmur, gallop, or rubs. No ectopy. Neurologic: Gait normal. . Sensation grossly intact., Negative findings: R handed., speech normal, mental status intact, cranial nerves 2-12 intact. Health Maintenance List PAP EVERY 3 YEARS (21-30 YEAR OLDS) due on 02/10/2018 INFLUENZA(Season Ended) due on 05/16/2018 TETANUS due on 01/16/2019 Data reviewed Previous CTA neck-02/2013 MRI Brain, MRA Brain and Carotid MRA w/o contrast 05/2013. ASSESSMENT/PLAN: 1. Headache, unspecified headache type - ICD9: 784.0, ICD10: R51 (primary diagnosis) - Given Toradol here in office, no side effects after 15 minute observation. No reported benefit either. Will have her trial 400 mg Ibuprofen as needed for the FERNANDEZ and also add Amitriptyline 10 mg at hs for ? Tension type headache. - Recheck in one week, sooner if needed or directed to ED if increase in sx or neurological sx as discussed with patient and . - MRI BRAIN WO IVCON - MRA BRAIN WO IVCON - MRA CAROTID WO IVCON - KETOROLAC 60 MG/2 ML INTRAMUSCULAR SOLUTION - AMITRIPTYLINE 10 MG TABLET 2. 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 Will check imaging. - MRI BRAIN WO IVCON - MRA BRAIN WO IVCON - MRA CAROTID WO IVCON Shorty Tineo, MSN CIRCULAR SAW FILER.SUGAR CANE PLANTER MACHINE OPERATOR Denise Gotti [facility] 12/25/2017 4:53 PM Signed Patient given Ketorolac/Toradol 60mg/2mL IM in the right upper quadrant gluteus. Patient tolerated injection well. Injection given at 3:25pm with a 15 minute wait. [employer] Lot#: [id number] Exp date: 05/2019 Denise Lauren CMA, MA 12/25/2017 6:21 PM Signed Addended by: OLIVIA LAUREN CMA on: 12/25/2017 06:21 PM Modules accepted: Orders Referring Provider: SHORTY TINEO (ROBOTICS ENGINEER) [[id number]] Allergies As of Date: 12/25/2017 Noted Allergy Reaction Laundry Detergent [Other] 12/24/2010 2 - Rash Comments: Purex Date Reviewed: 12/25/2017 Reviewed by: Denise Gotti Cma - Fully Assessed Reason for Visit: Recheck [92] Cmt: 1 week F/U on headache Primary Visit Diagnosis:Headache, unspecified headache type [R51] Other Visit Diagnosis:Vertebral artery dissection (HCC) [I77.74] Order(s):ketorolac (TORADOL) 60 mg/2 mL solnInject 2 mL intramuscularly one time only for 1 dose.Disp: 2 mLRfl: 0 amitriptyline (ELAVIL) 10 mg tabletTake 1 tablet by mouth daily at bedtime.Disp: 30 tabletRfl: 1 Prescriptions as of 12/25/2017 Sig: PREDNISONE 10 MG TABLET Take 4 tabs daily x 3 days, t* RIZATRIPTAN 10 MG DISINTEGRAT* May repeat in 2 hours if need* COMPOUNDED PRESCRIPTION Taking 2 probiotic pills a ni* MULTIVITAMIN-IRON 9 MG-FOLIC * Take 1 tablet by mouth once d* KETOROLAC 60 MG/2 ML INTRAMUS* Inject 2 mL intramuscularly o* AMITRIPTYLINE 10 MG TABLET Take 1 tablet by mouth daily * FISH OIL ORAL Take by mouth. Medication notes this encounter KETOROLAC 60 MG/2 ML INTRAMUSCULAR SOLUTION >> Denise Gotti Cma 12/25/2017 4:47 PM >> DENISE GOTTI CMA Dec 25, 2017 4:47 PM Patient given Ketorolac/Toradol 60mg/2mL IM in the right upper quadrant gluteus. Patient tolerated injection well. Injection given at 3:25pm with a 15 minute wait. 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 Patient tolerated injection well. Injection given at 3:25pm with a 15 minute wait. [employer] Lot#: [id number] Exp date: 05/2019 Denise Gotti Cma Prescriptions ordered this encounter Disp Refills Start End KETOROLAC 60 MG/2 ML INTRAMUSCULAR S* 2 mL 0 12/25/2017 12/25/2017 Class: Back Office Route: INTRAMUSCULA Sig: Inject 2 mL intramuscularly one time only for 1 dose. AMITRIPTYLINE 10 MG TABLET 30 t* 1 12/25/2017 Route: ORAL Sig: Take 1 tablet by mouth daily at bedtime. Disposition: Return in about 1 week (around 01/01/2018). Follow-up and Disposition History Recorded Encounter Status:Closed by SHORTY TINEO SUGAR CANE PLANTER MACHINE OPERATOR on 12/25/17 PROGRESS Observed: 12/19/2017 Status: COMPLETED Source: [place] 9:26 AM [facility] REPOSITORY O ID: [id number] Author: Shorty Page (Cabinet Worker) Noman Service: (none) Author Type: Nurse Practitioner Type: Progress Notes Filed: 12/19/2017 4:46 PM Note Text: Chief Complaint Patient presents with: Headache: x 8 days Nausea: x 5 days HPI Saniya Sahu is a 27 year old female who presents here today for Above Complaints. Seen earlier in the week, note reviewed. She has had headache on and off for 8 days, migrating from top of head, neck and base of scalp. Describes as burning, on fire. When on top of head it is consistently on right side. Denies pain behind eyes. Previous h/o migraines as a child, would usually escalate to point of vomiting then completely resolve. Current FERNANDEZ, is different. Has been taking Tylenol, then stopped when seen earlier and tried Ibupforen, which caused nausea so now back to Tylenol. She notes some nausea, no vomiting. Denies light or sound sensitivity. Rating her current FERNANDEZ pain 3-4 out of 10, last night was 8-9 out of 10, with benefit from Tylenol. Relates always low level dull pain, never completely resolved. Timing is inconsistent. Able to sleep through the night, feeling rested each morning. Denies any neurological deficits, no loss of balance or coordination. Denies any numbness or tingling. She is mid cycle with her menses. Regular cycles. Past medical history, appointments, medications, allergies reviewed. Previous Medical History PAST MEDICAL HISTORY Diagnosis Date - Anemia Resolved - Anxiety 11/06/2012 Resolved - Mitral valve prolapse 2010 - Panic anxiety syndrome 12/08/2012 Resolved - Vertebral artery dissection (HCC) 03/04/2013 no hormonal control recommended Previous Surgical History PAST SURGICAL HISTORY Procedure Laterality Date - EGD W/O OR W/BRUSH/WASH 02/17/14 EGD - SUCTION D AND C N/A 08/15/2017 Missed @ 9 weeks Family History FAMILY HISTORY Problem Relation Age of Onset - anxiety [OTHER] Mother - parkinson's disease [OTHER] Mother - sleep apnea [OTHER] Mother - anxiety [OTHER] Father - Headache Maternal Grandmother - Stroke Maternal Grandmother - Arthritis Paternal Grandmother - Cancer Paternal Grandfather Leukemia - anxiety [OTHER] Brother Patient Allergies ALLERGIES Allergen Reactions - Laundry Detergent [* Rash Purex Current Medications Current Outpatient Prescriptions on File Prior to Visit: COMPOUNDED PRESCRIPTION Taking 2 probiotic pills a night of 100 mg per capsule hlwyfkjk-zowu-GU-calcium ANDmins (ONE-A-DAY WOMEN'S PETITES) 9 mg iron -200 mcg tab Take 1 tablet by mouth once daily. DOCOSAHEXANOIC ACID/EPA (FISH OIL ORAL) Take by mouth. No current facility-administered medications on file prior to visit. 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[employer]* Social History Main Topics Smoking status: Never Smoker Smokeless status: Never Used Alcohol use: No Drug use: No Sexual activity: Yes Partners with: Male control/protection: None Other Topics Concern Service No Blood Transfusions No Caffeine Concern No Occupational Exposure No Hobby Hazards No Sleep Concern No Stress Concern No Weight Concern No Special Diet No Back Care Yes Exercise Yes Bike Helmet Yes Seat Belt Yes Self-Exams Yes Social History Narrative 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 Review of Symptoms REVIEW OF SYSTEMS PAIN ASSESSMENT: See HPI GENERAL: No weight loss, malaise or fevers HEENT: Negative for frequent or significant headaches, No changes in hearing or vision, no nose bleeds or other nasal problems NECK: Negative for lumps, goiter, pain and significant neck swelling RESPIRATORY: Negative for cough, hemoptysis, wheezing, COPD, dyspnea or shortness of breath CARDIOVASCULAR: Negative for chest pain, leg swelling, hypertension, CHF or palpitations NEURO: SEE HPI EXAM: BP 102/72 Pulse 89 Temp 37.2 ?C (98.9 ?F) (Tympanic) Resp 14 Wt 68 kg (150 lb) BMI 23.85 kg/m2 General Appearance: Well appearing, alert, in no acute distress, well-hydrated, well nourished.. Head: Normocephalic, no masses, lesions, tenderness or abnormalities. Eyes: Anicteric sclera. Pupils are equally round and reactive to light. Extraocular movements are intact. . Ears: External ears normal, canals clear. Oropharynx: Lips, mucosa, and tongue normal, teeth and gums normal, oropharynx normal. Neck: Supple, no adenopathy; thyroid symmetric, normal size, no bruits. Lungs: Lungs clear to auscultation. No wheezing, rhonchi, rales. Heart: RRR without murmur, gallop, or rubs. No ectopy. Neurologic: Gait normal. Reflexes normal and symmetric. Sensation grossly intact., Negative findings: speech normal, mental status intact, cranial nerves 2-12 intact, Romberg negative, muscle strength normal, rapid alternating movements normal, finger to nose normal, Oriented X 3. Health Maintenance List PAP EVERY 3 YEARS (21-30 YEAR OLDS) due on 02/10/2018 INFLUENZA(Season Ended) due on 05/16/2018 TETANUS due on 01/16/2019 ASSESSMENT/PLAN: 1. Headache, unspecified headache type - ICD9: 784.0, ICD10: R51 -Reassurance neuro exam all within normal limits, will try prednisone taper to try and block the FERNANDEZ, use of Maxalt ASSOCIATE MEDIA DIRECTOR when FERNANDEZ intensifies and to use it to abort worsening FERNANDEZ. - follow up in one week, sooner if needed. - PREDNISONE 10 MG TABLET - RIZATRIPTAN 10 MG DISINTEGRATING TABLET Shorty Tineo, MSN CIRCULAR SAW FILER.SUGAR CANE PLANTER MACHINE OPERATOR CNOV Observed: 12/19/2017 Status: COMPLETED Source: [place] 9:00 AM [facility] REPOSITORY [facility] SAN[facility] ([id number]) 1990 F NFR Date Time Provider Department 12/19/17 9:00 AM SHORTY TINEO (ROBOTICS ENGINEER) [facility] During your visit today, we recorded the following information about you: Temperature Pulse Respiration Blood pressure 98.9 degrees 89/minute 14/minute 102/72 Weight 68 kg ODESSA [employer] CIRCULAR SAW FILER.ZIGGY 12/19/2017 4:46 PM Signed Chief Complaint Patient presents with: Headache: x 8 days Nausea: x 5 days HPI Saniya Sahu is a 27 year old female who presents here today for Above Complaints. Seen earlier in the week, note reviewed. She has had headache on and off for 8 days, migrating from top of head, neck and base of scalp. Describes as burning, on fire. When on top of head it is consistently on right side. Denies pain behind eyes. Previous h/o migraines as a child, would usually escalate to point of vomiting then completely resolve. ANDquot;Current FERNANDEZ, is differentANDquot;. Has been taking Tylenol, then stopped when seen earlier and tried Ibupforen, which caused nausea so now back to Tylenol. She notes some nausea, no vomiting. Denies light or sound sensitivity. Rating her current FERNANDEZ pain 3-4 out of 10, last night was 8-9 out of 10, with benefit from Tylenol. Relates always low level dull pain, never completely resolved. Timing is inconsistent. Able to sleep through the night, feeling rested each morning. Denies any neurological deficits, no loss of balance or coordination. Denies any numbness or tingling. She is mid cycle with her menses. Regular cycles. Past medical history, appointments, medications, allergies reviewed. Previous Medical History PAST MEDICAL HISTORY Diagnosis Date - Anemia Resolved - Anxiety 11/06/2012 Resolved - Mitral valve prolapse 2010 - Panic anxiety syndrome 12/08/2012 Resolved - Vertebral artery dissection (HCC) 03/04/2013 no hormonal control recommended Previous Surgical History PAST SURGICAL HISTORY Procedure Laterality Date - EGD W/O OR W/BRUSH/WASH 02/17/14 EGD - SUCTION D ANDamp; C N/A 08/15/2017 Missed @ 9 weeks Family History FAMILY HISTORY Problem Relation Age of Onset - anxiety [OTHER] Mother - parkinson's disease [OTHER] Mother - sleep apnea [OTHER] Mother - anxiety [OTHER] Father - Headache Maternal Grandmother - Stroke Maternal Grandmother - Arthritis Paternal Grandmother - Cancer Paternal Grandfather Leukemia - anxiety [OTHER] Brother Patient Allergies ALLERGIES Allergen Reactions - Laundry Detergent [* Rash Purex Current Medications Current Outpatient Prescriptions on File Prior to Visit: COMPOUNDED PRESCRIPTION Taking 2 probiotic pills a night of 100 mg per capsule atwdlern-aawq-XW-calcium ANDamp;mins (ONE-A-DAY WOMEN'S PETITES) 9 mg iron -200 mcg tab Take 1 tablet by mouth once daily. DOCOSAHEXANOIC ACID/EPA (FISH OIL ORAL) Take by mouth. No current facility-administered medications on file prior to visit. 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[employer]* Social History Main Topics Smoking status: Never Smoker Smokeless status: Never Used Alcohol use: No Drug use: No Sexual activity: Yes Partners with: Male control/protection: None Other Topics Concern Service No Blood Transfusions No Caffeine Concern No Occupational Exposure No Hobby Hazards No Sleep Concern No Stress Concern No Weight Concern No Special Diet No Back Care Yes Exercise Yes Bike Helmet Yes Seat Belt Yes Self-Exams Yes Social History Narrative 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 Review of Symptoms REVIEW OF SYSTEMS PAIN ASSESSMENT: See HPI GENERAL: No weight loss, malaise or fevers HEENT: Negative for frequent or significant headaches, No changes in hearing or vision, no nose bleeds or other nasal problems NECK: Negative for lumps, goiter, pain and significant neck swelling RESPIRATORY: Negative for cough, hemoptysis, wheezing, COPD, dyspnea or shortness of breath CARDIOVASCULAR: Negative for chest pain, leg swelling, hypertension, CHF or palpitations NEURO: SEE HPI EXAM: BP 102/72 Pulse 89 Temp 37.2 ?C (98.9 ?F) (Tympanic) Resp 14 Wt 68 kg (150 lb) BMI 23.85 kg/m2 General Appearance: Well appearing, alert, in no acute distress, well-hydrated, well nourished.. Head: Normocephalic, no masses, lesions, tenderness or abnormalities. Eyes: Anicteric sclera. Pupils are equally round and reactive to light. Extraocular movements are intact. . Ears: External ears normal, canals clear. Oropharynx: Lips, mucosa, and tongue normal, teeth and gums normal, oropharynx normal. Neck: Supple, no adenopathy; thyroid symmetric, normal size, no bruits. Lungs: Lungs clear to auscultation. No wheezing, rhonchi, rales. Heart: RRR without murmur, gallop, or rubs. No ectopy. Neurologic: Gait normal. Reflexes normal and symmetric. Sensation grossly intact., Negative findings: speech normal, mental status intact, cranial nerves 2-12 intact, Romberg negative, muscle strength normal, rapid alternating movements normal, finger to nose normal, Oriented X 3. Health Maintenance List PAP EVERY 3 YEARS (21-30 YEAR OLDS) due on 02/10/2018 INFLUENZA(Season Ended) due on 05/16/2018 TETANUS due on 01/16/2019 ASSESSMENT/PLAN: 1. Headache, unspecified headache type - ICD9: 784.0, ICD10: R51 -Reassurance neuro exam all within normal limits, will try prednisone taper to try and block the FERNANDEZ, use of Maxalt ASSOCIATE MEDIA DIRECTOR when FERNANDEZ intensifies and to use it to abort worsening FERNANDEZ. - follow up in one week, sooner if needed. - PREDNISONE 10 MG TABLET - RIZATRIPTAN 10 MG DISINTEGRATING TABLET Shorty Tineo, MSN CIRCULAR SAW FILER.SUGAR CANE PLANTER MACHINE OPERATOR Referring Provider: ELISA RAHMAN ([facility]) [[id number]] Allergies As of Date: 12/19/2017 Noted Allergy Reaction Laundry Detergent [Other] 12/24/2010 2 - Rash Comments: Purex Date Reviewed: 12/19/2017 Reviewed by: Denise Gotti Document Analyst - Fully Assessed Reason for Visit: Headache [52] Cmt: x 8 days Nausea [70] Cmt: x 5 days Reason For Visit History Recorded Primary Visit Diagnosis:Headache, unspecified headache type [R51] Order(s):predniSONE (DELTASONE) 10 mg tabletTake 4 tabs daily x 3 days, then 3 tabs x 3 days, 2 tabs x 3 days, then 1 tab x3 days with food.Disp: 30 tabletRfl: 0 rizatriptan (MAXALT-ASSOCIATE MEDIA DIRECTOR) 10 mg disintegrating tabletMay repeat in 2 hours if neededDisp: 9 tabletRfl: 1 Prescriptions as of 12/19/2017 Sig: COMPOUNDED PRESCRIPTION Taking 2 probiotic pills a ni* MULTIVITAMIN-IRON 9 MG-FOLIC * Take 1 tablet by mouth once d* PREDNISONE 10 MG TABLET Take 4 tabs daily x 3 days, t* RIZATRIPTAN 10 MG DISINTEGRAT* May repeat in 2 hours if need* FISH OIL ORAL Take by mouth. 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 RIZATRIPTAN 10 MG DISINTEGRATING TAB* 9 ta* 1 12/19/2017 Sig: May repeat in 2 hours if needed Disposition: Return in about 6 days (around 12/25/2017). Follow-up and Disposition History Recorded Encounter Status:Closed by SHORTY TINEO CNP on 12/19/17 PROGRESS Observed: 12/15/2017 Status: COMPLETED Source: [place] 10:09 AM [facility] REPOSITORY O ID: [id number] Author: Elisa (Ziggy) Podlogar Service: (none) Author Type: Nurse Practitioner Type: Progress Notes Filed: 12/15/2017 1:28 PM Note Text: 12/15/2017 Patient presents with: Headache: on and off since evening, some vision disturbance, nausea rt side of head sensitive to touch and vision disturbances on rt. HP/CC: Saniya Sahu is a 27 year old female who presents with complaint of a headache with recent onset. The pain is located at pariteal region, and is described as: burning, dull and throbbing 6/10 in intensity; radiation: unilateral . 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 LMP: 1 week ago Contraception: none Treatment: Treatments attempted include: ES Tylenol 1000 mg a day- helped releive Naproxen helped her sleep through night the night Medication attempted include: acetaminophen and ibuprofen. Taking OTC meds (Advil, Motrin, Aleve, ibuprofen, Tylenol): Yes as above If so, how often: once per day(s) Do they help: Yes Taking prescription meds (Imitrex, Zomig, Maxalt, Midrin): No PHYSICAL EXAMINATION: BP 110/62 (BP Site: Left Arm, BP Position: Sitting, BP Cuff Size: Regular Adult) Pulse 64 Temp 37 ?C (98.6 ?F) Resp 18 Wt 69 kg (152 lb 1 oz) BMI 24.18 kg/m2 General appearance: Well appearing, alert, in no acute distress, well-hydrated, well nourished., NC/AT. Skin: Skin color, texture, turgor normal, no suspicious rashes or lesions Head: Normocephalic, no masses, lesions, tenderness or abnormalities; TMJ pain: yes Eyes: Anicteric sclera. Pupils are equally round and reactive to light. Extraocular movements are intact. Ears: External ears normal, canals clear, External ears normal, canals clear, TM's normal Nose/Sinuses: Nares normal, septum midline, mucosa normal, no drainage or sinus tenderness Oropharynx: Lips, mucosa, and tongue normal, teeth and gums normal, oropharynx normal Neck: Supple, no adenopathy; thyroid symmetric, normal size, no bruits Back: Normal exam Lungs: Lungs clear to auscultation. No wheezing, rhonchi, rales Heart: RRR without murmur, gallop, or rubs. No ectopy Abdomen: Normal abdominal exam, Abdomen soft, non-tender. Bowel sounds normal. No masses, organomegaly Extremities: No deformities, edema, skin discoloration, clubbing or cyanosis. Good capillary refill. Musculoskeletal: Spine range of motion normal. Muscular strength intact, No joint swelling, deformity, or tenderness Peripheral pulses: Normal Neuro: Gait normal. Reflexes normal and symmetric. Sensation grossly intact., Negative findings: speech normal, mental status intact, cranial nerves 2-12 intact, gait, including heel, toe, and tandem walking normal, Romberg negative, muscle tone normal, muscle strength normal, rapid alternating movements normal, finger to nose normal, sensation to light touch and pinprick normal, vibratory sensation normal, proprioception normal, reflexes normal and symmetric, plantar response downgoing bilaterally, CN II-XII intact, DTR 2+ upper and lower ext's, MS 5/5 upper and lower ext's, good finger to nose coordination, no motor or sensory deficit, propioception intact, Babinski neg, kernig's sign neg, speech intact, gait intact, memory intact, A+Ox3 in time, place and person. Visual ching intact. ASSESSMENT/PLAN: 1. Headache, unspecified headache type - ICD9: 784.0, ICD10: R51 - some similar symptoms as migraines, but has not had these since younger - no red flag exam findings - red flag symptoms discussed, patient and verbalize understanding - may use ibuprofen 600- 800 mg every 6 hours as needed - discussed Imitrex patient declined at this time will consider - discussed with Dr. Pearson d/t hx of vertebral artery occlusion- agreeable with above plan - follow-up in 2 days if continues despite ibuprofen use- will add Imitrex may need prophylaxis as well. To ER with red flag symptoms Elisa Rahman, JARETH.SUGAR CANE PLANTER MACHINE OPERATOR Prescription instructions reviewed with patient as applicable. Patient advised if symptoms do not improve or if symptoms worsen sooner, to contact their primary care physician. Potential red flag symptoms discussed with the patient. Reviewed appropriate action plan to take if red flag symptoms occur. Patient agreeable to treatment plan. CNOV Observed: 12/15/2017 Status: COMPLETED Source: [place] 10:00 AM [facility] REPOSITORY [facility] SANIYA SAHU ([id number]) 1990 F NFR Date Time Provider Department 12/15/17 10:00 AM ELISA RAHMAN ([facility] During your visit today, we recorded the following information about you: Temperature Pulse Respiration Blood pressure 98.6 degrees 64/minute 18/minute 110/62 Weight 69 kg Elisa Rahman APRN.CNP 12/15/2017 1:28 PM Signed 12/15/2017 Patient presents with: Headache: on and off since evening, some vision disturbance, nausea rt side of head sensitive to touch and vision disturbances on rt. HP/CC: Saniya Sahu is a 27 year old female who presents with complaint of a headache with recent onset. The pain is located at pariteal region, and is described as: burning, dull and throbbing 6/10 in intensity; radiation: unilateral . Intermittent constant since no medications for 12 hours Associated symptoms include: nausea Neurologic Symptoms: visual changes-ANDquot; fuzzinessANDquot; to right eye when it first started but not today Contributory PMHx: Prior headaches: yes Migraine history: yes HTN: no DM: no temporal arthritis: no URI: no Fever: no Chills: no Travel history (encephalitis): no Injury/Trauma: 2012 right vertebral artery occlusion which they be;wil was from chiropractor manipulation Caffeine Intake: Drinks coffee everyday had 3 cups of coffee No caffeine the past few days Alcohol Intake: No. LMP: 1 week ago Contraception: none Treatment: Treatments attempted include: ES Tylenol 1000 mg a day- helped releive Naproxen helped her sleep through night the night Medication attempted include: acetaminophen and ibuprofen. Taking OTC meds (Advil, Motrin, Aleve, ibuprofen, Tylenol): Yes as above If so, how often: once per day(s) Do they help: Yes Taking prescription meds (Imitrex, Zomig, Maxalt, Midrin): No PHYSICAL EXAMINATION: BP 110/62 (BP Site: Left Arm, BP Position: Sitting, BP Cuff Size: Regular Adult) Pulse 64 Temp 37 ?C (98.6 ?F) Resp 18 Wt 69 kg (152 lb 1 oz) BMI 24.18 kg/m2 General appearance: Well appearing, alert, in no acute distress, well-hydrated, well nourished., NC/AT. Skin: Skin color, texture, turgor normal, no suspicious rashes or lesions Head: Normocephalic, no masses, lesions, tenderness or abnormalities; TMJ pain: yes Eyes: Anicteric sclera. Pupils are equally round and reactive to light. Extraocular movements are intact. Ears: External ears normal, canals clear, External ears normal, canals clear, TM's normal Nose/Sinuses: Nares normal, septum midline, mucosa normal, no drainage or sinus tenderness Oropharynx: Lips, mucosa, and tongue normal, teeth and gums normal, oropharynx normal Neck: Supple, no adenopathy; thyroid symmetric, normal size, no bruits Back: Normal exam Lungs: Lungs clear to auscultation. No wheezing, rhonchi, rales Heart: RRR without murmur, gallop, or rubs. No ectopy Abdomen: Normal abdominal exam, Abdomen soft, non-tender. Bowel sounds normal. No masses, organomegaly Extremities: No deformities, edema, skin discoloration, clubbing or cyanosis. Good capillary refill. Musculoskeletal: Spine range of motion normal. Muscular strength intact, No joint swelling, deformity, or tenderness Peripheral pulses: Normal Neuro: Gait normal. Reflexes normal and symmetric. Sensation grossly intact., Negative findings: speech normal, mental status intact, cranial nerves 2-12 intact, gait, including heel, toe, and tandem walking normal, Romberg negative, muscle tone normal, muscle strength normal, rapid alternating movements normal, finger to nose normal, sensation to light touch and pinprick normal, vibratory sensation normal, proprioception normal, reflexes normal and symmetric, plantar response downgoing bilaterally, CN II-XII intact, DTR 2+ upper and lower ext's, MS 5/5 upper and lower ext's, good finger to nose coordination, no motor or sensory deficit, propioception intact, Babinski neg, kernig's sign neg, speech intact, gait intact, memory intact, A+Ox3 in time, place and person. Visual ching intact. ASSESSMENT/PLAN: 1. Headache, unspecified headache type - ICD9: 784.0, ICD10: R51 - some similar symptoms as migraines, but has not had these since younger - no red flag exam findings - red flag symptoms discussed, patient and verbalize understanding - may use ibuprofen 600- 800 mg every 6 hours as needed - discussed Imitrex patient declined at this time will consider - discussed with Dr. Pearson d/t hx of vertebral artery occlusion- agreeable with above plan - follow-up in 2 days if continues despite ibuprofen use- will add Imitrex may need prophylaxis as well. To ER with red flag symptoms Elisa Rahman APRN.IZGGY Prescription instructions reviewed with patient as applicable. Patient advised if symptoms do not improve or if symptoms worsen sooner, to contact their primary care physician. Potential red flag symptoms discussed with the patient. Reviewed appropriate action plan to take if red flag symptoms occur. Patient agreeable to treatment plan. Elisa Rahman APRN.CNP 12/15/2017 11:11 AM Signed Ibuprofen 600-800 mg every 6 hours as needed - take with food If develop numbness, tingling, weakness, in extremities, slurred speech, visual changes, balance issues, worst headache of your life go ER or call 1- MIGRAINE HEADACHE: Your exam shows you are having a migraine headache. Migraines can cause many different symptoms. These can include: -? A general throbbing headache, sometimes on one side of the head. -? Nausea, vomiting, sinus pain and stuffiness. -? Visual symptoms (light sensitivity, blind spots, flashing lights). Migraine headaches are caused by changes in the size of the blood vessels in the head and neck. They may be brought on by many things including: -? Emotional stress, lack of sleep, menstrual periods. -? Alcohol and some drugs (such as control pills). -? Diet factors (fasting, caffeine, food preservatives, chocolate). -? Environmental factors (weather changes, bright lights, odors, smoke). -? Jarring motions and loud noises. Treatment may require medicines for pain, inflammation, and vomiting. An injection is sometimes needed if the headache is very severe. Long-term care for migraines includes dealing with the trigger factors. Medicines to prevent the blood vessel changes may be needed. Please see your doctor if you are not better in 1-2 days. You should be seen right away if you have a high fever, vomit repeatedly, get a stiff neck, pass out, or show confusion. Referring Provider: SELF [[id number]] Allergies As of Date: 12/15/2017 Noted Allergy Reaction Laundry Detergent [Other] 12/24/2010 2 - Rash Comments: Purex Date Reviewed: 12/15/2017 Reviewed by: Gisella Cat LPN - Fully Assessed Reason for Visit: Headache [52] Cmt: on and off since evening, some vision disturbance, nausea rt side of head sensitive to touch and vision disturbances on rt. Primary Visit Diagnosis:Headache, unspecified headache type [R51] Order(s):COMPOUNDED PRESCRIPTIONTaking 2 probiotic pills a night of 100 mg per capsuleDisp: 30 capsuleRfl: 11 Prescriptions as of 12/15/2017 Sig: FISH OIL ORAL Take by mouth. MULTIVITAMIN-IRON 9 MG-FOLIC * Take 1 tablet by mouth once d* COMPOUNDED PRESCRIPTION Taking 2 probiotic pills a ni* Problem List As Of Date 12/15/2017 Noted Resolved Anemia, due to Inadequate Iron Intake [D50.8] INVALID FOR* Anxiety [F41.9] INVALID FOR* Panic anxiety syndrome [F41.0] INVALID FOR* Anxiety with somatization [F41.9, F45.0] INVALID FOR* Vertebral artery dissection [I77.74] INVALID FOR* Other instructions from your clinician: Ibuprofen 600-800 mg every 6 hours as needed - take with food If develop numbness, tingling, weakness, in extremities, slurred speech, visual changes, balance issues, worst headache of your life go ER or call MIGRAINE HEADACHE: Your exam shows you are having a migraine headache. Migraines can cause many different symptoms. These can include: -? A general throbbing headache, sometimes on one side of the head. -? Nausea, vomiting, sinus pain and stuffiness. -? Visual symptoms (light sensitivity, blind spots, flashing lights). Migraine headaches are caused by changes in the size of the blood vessels in the head and neck. They may be brought on by many things including: -? Emotional stress, lack of sleep, menstrual periods. -? Alcohol and some drugs (such as control pills). -? Diet factors (fasting, caffeine, food preservatives, chocolate). -? Environmental factors (weather changes, bright lights, odors, smoke). -? Jarring motions and loud noises. Treatment may require medicines for pain, inflammation, and vomiting. An injection is sometimes needed if the headache is very severe. Long-term care for migraines includes dealing with the trigger factors. Medicines to prevent the blood vessel changes may be needed. Please see your doctor if you are not better in 1-2 days. You should be seen right away if you have a high fever, vomit repeatedly, get a stiff neck, pass out, or show confusion. Prescriptions ordered this encounter Disp Refills Start End COMPOUNDED PRESCRIPTION 30 c* 11 12/15/2017 Class: Med Update Sig: Taking 2 probiotic pills a night of 100 mg per capsule Cosign accepted by ELISA RAHMAN CNP[[id number]] on 12/15/2017 1:28 PM Follow-up and Disposition History Recorded Encounter Status:Closed by ELISA RAHMAN CNP on 12/15/17 PEDIATRIC ASSISTANT OFFICE VISIT Observed: 09/14/2017 Status: F Source: [place] REPORT 9:51 AM [facility] [address] [place] [address] OFFICE VISIT Date of Service: 09/10/17 MR#: [id number] Acct: [id number] Name: SANIYA SAHU Rep #: [id number] : 1990 Provider: Flower Caal MD Age/Sex: 27/F Location[place] [facility] [place] [facility] [place] Status: Signed Intake Vital Signs09/10/17 Height 5 ft 7 in 09/10/17 Weight: 155 lb 09/10/17 Body Mass Index (BMI) 24.3 09/10/17 Blood Pressure 128/64 Intake Visit Reasons: F/U SURGERY Chief Complaint: follow up surgery Allergies No Known Allergies Allergy (Verified 09/10/17 16:27) Medications L.acidoph,Paracasei, B.lactis [Probiotic] 1 ea PO DAILY 08/14/17 [History Confirmed 08/14/17] PFSH Medical History Missed (Acute) D AND C (Acute) Social History Smoking Status: Never smoker alcohol intake: never substance use type: does not use caffeine: Yes what type of physical activity do you participate in: walking, running frequency: 1-2 times per week seatbelt use: always do you feel safe at home: Yes additional social history: Spouse Tim Pregancy History 1 Elective abortions Hx Para Spontaneous abortions 1 HPI F/U SURGERY: Details: SANIYA SAHU is a 27 year old who presents for postop appointment. She had a d and c for incomplete Ab two weeks ago. she is doing well and denies any complaints. they are wanting to conceive again Exam Const General: cooperative, well developed Assessment AND Plan Problems 1. Missed O02.1 Plan routine postop recovery doing well fu for annuals or next 09/14/17 0918 <Electronically signed by Flower Caal MD> Date Flower Caal MD Cosigner Signature: Date (if applicable) CC: ALLERGIES ALLERGIES DATE TYPE / CODE NAME / CODE REACTION SEVERITY SOURCE 08/28/2018 Drug No Known Unknown [place] Allergy/[id number](S Allergies/F0019 [facility]) [address](RXNORM) Hospital Repository 12/24/2010 Miscellaneous OTHER [facility] [place] [facility][id number][facility] [place] Rep[facility] Miscellaneous NO KNOWN [place] Allergy/[id number](S ALLERGIES [facility]) Hospital Repository ENCOUNTERS ENCOUNTERS ADMIT/DISCHARGE ACCOUNT ADMITTING ENCOUNTER LOCATION SOURCE NUMBER CLASS 08/28/2018/08/28/20 [id number] Ambulatory BMSBuilding:B [place] [facility] Repository 08/21/2018 [id number] Ambulatory [facility] ing:LABSPEC Repository 08/21/2018/08/21/20 [id number] Ambulatory BMSBuilding:B [place] [facility] Repository 08/16/2018 [id number] Ambulatory BMSBuilding:B [place] MS.[facility] Repository 08/15/2018/08/15/20 [id number] Ambulatory [address] Hospital ing:WPOUTRoom Repository : [id number] 08/05/2018/08/05/20 [id number] Ambulatory BMSBuilding:B [place] [facility] Repository 07/29/2018 [id number] Ambulatory [facility] ing:US Repository 07/24/2018/07/24/20 [id number] Ambulatory BMSBuilding:B [place] [facility] Repository 07/09/2018/07/09/20 [id number] Ambulatory BMSBuilding:B [place] [facility] Repository 06/26/2018 [id number] Ambulatory [facility] ing:PAVLAB Repository 06/26/2018/06/26/20 [id number] Ambulatory BMSBuilding:B [place] [facility] Repository 06/22/2018 [id number] Ambulatory Building:[facility] Repository 06/22/2018 [id number] Ambulatory Building:[facility] Repository 05/29/2018/06/01/20 [id number] Ambulatory [address] Repository 05/29/2018/05/29/20 [id number] Ambulatory [address] Repository 05/28/2018/05/28/20 [id number] Ambulatory BMSBuilding:B [place] [facility] Repository 05/08/2018/05/08/20 [id number] Ambulatory BMSBuilding:B [place] [facility] Repository 04/20/2018 [id number] Ambulatory Building:[facility] Repository 04/20/2018/04/20/20 [id number] Ambulatory Building:[address] Repository 04/09/2018/04/09/20 [id number] Ambulatory BMSBuilding:B [place] [facility] Repository 03/30/2018 [id number] [facility]LAB Repository 03/13/2018/03/13/20 [id number] Ambulatory BMSBuilding:B [place] [facility] Repository 03/05/2018 [id number] [facility]LAB Repository 03/05/2018 [id number] Ambulatory Building:[facility] Repository 02/13/2018 [id number] Ambulatory [facility] ing:LABSPEC Repository 02/13/2018 [id number] Ambulatory [facility] ing:LAB Repository 02/13/2018/02/14/20 [id number] Ambulatory BMSBuilding:B [place] [facility] Repository 02/13/2018 [id number] Ambulatory [facility] [place] [facility] [facility] Repository 01/26/2018/01/27/20 [id number] Ambulatory BMSBuilding:B [place] 18 [facility] Repository 01/24/2018/01/25/20 [id number] Ambulatory BMSBuilding:B [place] 18 MS.[facility] Repository 01/19/2018/01/20/20 [id number] Ambulatory BMSBuilding:B [place] 18 MS.[facility] Repository 01/19/2018 [id number] [facility] Repository 12/25/2017/12/27/19 [id number] Ambulatory [address] Repository 12/19/2017/12/23/19 [id number] Ambulatory [address] Repository 12/15/2017/12/17/19 [id number] Ambulatory [address] Repository 09/10/2017/09/10/20 [id number] Ambulatory BMSBuilding:B [place] 17 MS.[facility] Repository PAYERS PAYERS ENCOUNTER GUARANTOR PAYER SUBSCRIBER SOURCE 08/28/2018 SANIYA L Primary SANIYA Taylor [place] [id number] Insurance:CIGNAPolicy LEINERDOB: [facility] ELIS DRUNIT Number: [id number] [id number] Repository [address]Isb: (330) Date:3060-09-35MI [phone] () [id number], [place] [address]II: 08/28/2018 Secondary NOT GIVENUNK [place] Insurance:SELF PAY [facility] Number: Effective Repository Date:2018-08-28 08/21/2018 SANIYA L Primary SANIYA Taylor [place] [id number] Insurance:CIGNAPolicy LEINERDOB: [facility] ELIS DRUNIT Number: [id number] [id number] Repository [address]Rzl: (330) Date:6390-45-03CI [phone] () 346410UUTTLREDQPH, [place] [address]EI: 08/21/2018 Secondary NOT GIVENUNK [place] Insurance:SELF PAY [facility] Number: Effective Repository Date:2018-08-21 08/21/2018 SANIYA L Primary SANIYA Taylor [place] [id number] Insurance:CIGNAPolicy LEINERDOB: [facility] ELIS DRUNIT Number: [id number] [id number] Repository [address]Vyc: (330) Date:6661-04-53YG [phone] () 607889XFPQLRIXQSC, [place] [address]RP: 08/21/2018 Secondary NOT GIVENUNK [place] Insurance:SELF PAY [facility] Number: Effective Repository Date:2018-08-21 08/16/2018 SANIYA L Primary NOT GIVENUNK [place] [id number] Insurance:SELF PAY [address] Number: Effective Repository 346[address]Wvd: (330) Date:2018-08-16 [phone] () 08/15/2018 SANIYA L Primary SANIYA Taylor [place] [id number] Insurance:CIGNAPolicy LEINERDOB: Community ELIS DRUNIT Number: [id number] [id number] Repository [address]Oxm: (330) Date:2813-09-04NT [phone] (HP) HEIDI CORDOVA [address]OM: 08/15/2018 Secondary NOT GIVENUNK [place] Insurance:SELF PAY [facility] Number: Effective Repository Date:2018-08-15 08/05/2018 SANIYA L Primary SANIYA L [place] [id number] Insurance:CIGNAPolicy LEINERDOB: Community ELIS DRUNIT Number: [id number] [id number] Repository [address]Dzp: (330) Date:8291-51-82IE [phone] () 522530XBPZAIMHKSO, [place] [address]ID: 08/05/2018 Secondary NOT GIVENUNK [place] Insurance:SELF PAY [facility] Number: Effective Repository Date:2018-08-04 07/29/2018 SANIYA L Primary SANIYA L [place] [id number] Insurance:CIGNAPolicy KATHLEENNERDOB: Community ELIS DRUNIT Number: [id number] [id number] Repository [address]Ckm: (330) Date:2948-82-51HD [phone] () 158300XHXAQLJFNGQ, [place] [address]OX: 07/29/2018 Secondary NOT GIVENUNK [place] Insurance:SELF PAY [facility] Number: Effective Repository Date:2018-07-27 07/24/2018 SANIYA L Primary SANIYA L [place] [id number] Insurance:CIGNAPolicy LEINERDOB: Community ELIS DRUNIT Number: [id number] [address] [id number] Repository [address]Mdr: (330) Date:7784-98-80UH [phone] (HP) 564708XJSRKIUPYVI, [place] [address]EF: 07/24/2018 Secondary NOT GIVENUNK [place] Insurance:SELF PAY [facility] Number: Effective Repository Date:2018-07-24 07/09/2018 SANIYA Taylor Primary SANIYA [place] [id number] Insurance:CIGNAPolicy LEINERDOB: Community ELIS DRUNIT Number: [id number] [id number] Repository [address]Vwp: (330) Date:2550-72-23AL [phone] () 521665JYILVUHVIXH, [place] [address]LA: 07/09/2018 Secondary NOT GIVENUNK [place] Insurance:SELF PAY [facility] Number: Effective Repository Date:2018-07-09 06/26/2018 SANIYA [place] [id number] Insurance:CIGNAPolicy [facility] Number: [id number] [id number] Repository [address]Usr: (330) Date:6928-19-03LT [phone] () [id number], [place] [address]NC: 06/26/2018 Secondary NOT GIVENUNK [place] Insurance:SELF PAY [facility] Number: Effective Repository Date:2018-06-26 06/26/2018 SANIYA Golden [id number] Insurance:CIGNAPolicy LEINERDOB: [facility] ELIS DRUNIT Number: [id number] [id number] Repository [address]Pmn: (330) Date:8461-65-50KN [phone] () 239318JWTLVROOWAD, [place] [address]WC: 06/26/2018 Secondary NOT GIVENUNK [place] Insurance:SELF PAY [facility] Number: Effective Repository Date:2018-06-26 06/22/2018 SANIYA Savage [facility] LEINERDOB: Insurance:CIGNAPolicy RUSSELLDOB: [facility] [id number] Number: [id number] Repository [address] [id number] 6 [place] W2TSMTRPF, [place] Date: [address], [address]Njm: (330) [place] [address] [phone] () 06/22/2018 [facility] SANIYA [place] [facility] LEINERDOB: Insurance:CIGNAPolicy RUSSELLDOB: [facility] Number: [id number] Repository [address] [id number] 6 [place] L2UJERPVJ, [place] Date: [address], [address]Hik: (330) [place] [address] [phone] () 05/28/2018 SANIYA L Primary SANIYA L [place] [id number] Insurance:CIGNAPolicy LEINERDOB: [facility] ELIS DRUNIT Number: [id number] [id number] Repository [address]Qwl: (330) Date:9355-60-96JP [phone] () 146071QYSTTWOYCEP, [place] [address]NL: 05/28/2018 Secondary NOT GIVENUNK [place] Insurance:SELF PAY [facility] Number: Effective Repository Date:2018-05-28 05/08/2018 SANIYA L Primary SANIYA Taylor [place] [id number] Insurance:CIGNAPolicy LEINERDOB: [facility] ELIS DRUNIT Number: [id number] [id number] Repository [address]Hue: (330) Date:2436-56-52QG [phone] () 710484PFMGQMUHNCE [place] [address]IC: 05/08/2018 Secondary NOT GIVENUNK [place] Insurance:SELF PAY [facility] Number: Effective Repository Date:2018-05-07 04/20/2018 [facility] LEINERDOB: Insurance:CIGNAPolicy RUSSELLDOB: [facility] Number: [id number] Repository [address] [id number] 6 [place] H2JGCYADCTELLURIDE, [place] Date: [address], [address]Mik: (330) [place] [address] [phone] (HP) 04/20/2018 SANIYA Primary SANIYA [facility] LEINERD[facility]: Insurance:CIGNAPolicy KATHLEENNERDOB: [facility] [id number] Number: [id number] Repository [address] [address] [id number] 6 [place] [address] Date: [address], [address]Avr: (330) [place] [address] [phone] (HP) 04/09/2018 SANIYA L Primary SANIYA L [place] [id number] Insurance:CIGNAPolicy LEINERDOB: [facility] ELIS DRUNIT Number: [id number] [id number] Repository [address]Srd: (330) Date:1082-01-07QC [phone] () 679959ZGMNKEAGGQA, [place] [address]NV: 04/09/2018 Secondary NOT GIVENUNK [place] Insurance:SELF PAY [facility] Number: Effective Repository Date:2018-04-09 03/30/2018 SANIYA L Primary SANIYA L [place] [id number] Insurance:CIGNAPolicy LEINERDOB: [facility] ELIS DRUNIT Number: [id number] [id number] Repository [address]Kdw: (330) Date:3157-83-47IT [phone] () 962119ILYMIPDSWXI, [place] [address]PS: 03/30/2018 Secondary NOT GIVENUNK [place] Insurance:SELF PAY [facility] Number: Effective Repository Date:2018-03-30 03/13/2018 SANIYA L Primary SANIYA L [place] [id number] Insurance:CIGNAPolicy LEINERDOB: [facility] ELIS DRUNIT Number: [id number] [id number] Repository [address]Lnm: (330) Date:9550-76-17OC [phone] () 565752IHLEBCETAHN, [place] [address]OM: 03/13/2018 Secondary NOT GIVENUNK [place] Insurance:SELF PAY [facility] Number: Effective Repository Date:2018-03-13 03/05/2018 SANIYA L Primary SANIYA L [place] [id number] Insurance:CIGNAPolicy [facility]ERDOB[facility] Number: [id number] [id number] Repository [address]Zfd: (330) Date:1641-93-61TI [phone] () 909277WODBWCYETXZ, [place] [address]GH: 03/05/2018 Secondary NOT GIVENUNK [place] Insurance:SELF PAY [facility] Number: Effective Repository Date:2018-03-05 03/05/2018 SANIYA [facility] [id number] Insurance:CIGNAPolicy LEINERDOB: [facility] UNIT Number: [id number] Repository [address] [id number] 6 [facility] [address]Wcf: (330) Date: [address], [phone] () [place] [address] 02/13/2018 SANIYA L Primary SANIYA L [place] [id number] Insurance:CIGNAPolicy LEINERDOB: [facility] Number: [id number] [id number] Repository [address]Saq: (330) Date:7923-30-48XK [phone] () 258924AAYIYMLZYPHLANSDOWNE, [place] [address]OT: 02/13/2018 Secondary NOT GIVENUNK [place] Insurance:SELF PAY [facility] Number: Effective Repository Date:2018-02-13 02/13/2018 SANIYA L Primary SANIYA L [place] [id number] Insurance:CIGNAPolicy LEINERDOB: [facility] Number: [id number] [id number] Repository [address]Xzz: (330) Date:0224-43-35OV [phone] () 664107VZAXIJPWALV, [place] [address]HF: 02/13/2018 Secondary NOT GIVENUNK [place] Insurance:SELF PAY [facility] Number: Effective Repository Date:2018-02-13 02/13/2018 SANIYA [place] SANIYA Taylor [place] [id number] Insurance:CIGNAPolicy LEINERDOB: Community ELIS DRUNIT Number: [id number] [id number] Repository [address]Hxd: (330) Date:3149-87-75DX [phone] () 221555CPZPWVPLVRX, [place] [address]FK: 02/13/2018 Secondary NOT GIVENUNK [place] Insurance:SELF PAY [facility] Number: Effective Repository Date:2018-02-13 02/13/2018 SANIYA Golden [id number] Insurance:CIGNAPolicy LEINERDOB: Community ELIS DRUNIT Number: [id number] [address] [id number] Repository [address]Prd: (330) Date:8540-28-67GK [phone] () 431677FJCNIUOILMS, [place] [address]VR: 02/13/2018 Secondary NOT GIVENUNK [place] Insurance:SELF PAY [facility] Number: Effective Repository Date:2018-01-13 01/26/2018 SANIYA L Primary SANIYA Taylor [place] [id number] Insurance:CIGNAPolicy LEINERDOB: Community ELIS DRUNIT Number: [id number] [id number] Repository [address]Eag: (330) Date:8440-80-01QZ [phone] () 326246WNAMUOODMLT, [place] [address]MS: 01/26/2018 Secondary NOT GIVENUNK [place] Insurance:SELF PAY [facility] Number: Effective Repository Date:2018-01-26 01/24/2018 SANIYA L Primary SANIYA [place] [id number] Insurance:CIGNAPolicy LEINERDOB: Community ELIS DRUNIT Number: [id number] [id number] Repository [address]Bss: (330) Date:0191-14-00EF [phone] () 630575FSLXZFQXFRD, [place] [address]AT: 01/24/2018 Secondary NOT GIVENUNK [place] Insurance:SELF PAY [facility] Number: Effective Repository Date:2018-01-24 01/19/2018 SANIYA Primary SANIYA [place] [id number] Insurance:CIGNAPolicy LEINERDOB: Community ELIS DRUNIT Number: [id number] [id number] Repository [address]Unj: (330) Date:0298-36-50DN [phone] () 958546SNUKKLURAHO, [place] [address]OR: 01/19/2018 Secondary NOT GIVENUNK [place] Insurance:SELF PAY [facility] Number: Effective Repository Date:2018-01-19 01/19/2018 SANIYA L Primary SANIYA L [place] [id number] Insurance:CIGNAPolicy LEINERDOB: Community ELIS DRUNIT Number: [id number] [address] [id number] Repository [address]Rco: (330) Date:4869-40-16YM [phone] () 117711AKZPHXBMWKY, [place] [address]HW: 01/19/2018 Secondary NOT GIVENUNK [place] Insurance:SELF PAY [facility] Number: Effective Repository Date:2018-01-19 09/10/2017 SANIYA Primary SANIYA [place] [id number] Insurance:CIGNAPolicy LEINERDOB: Community ELIS DRUNIT Number: [id number] [id number] Repository [address]Gxw: (330) Date:1841-02-09KQ [phone] (HP) 930834RZQXJROXJXR, [place] [address]OL: 09/10/2017 Secondary NOT GIVENUNK [place] Insurance:SELF PAY [facility] Number: Effective Repository Date:2017-08-25
== END 2018-08-15 21:20 | disposition home or self-care (01) ==
LOC: WPOUT 20:00 → WP 20:01
PROVIDERS: Family Provider Family Medicine; PCP Family Medicine; Referring Provider Obstetrics & Gynecology; Visit Provider Obstetrics & Gynecology
DX: O26.893 Other specified pregnancy related conditions, third trimester (principal); R03.0 Elevated blood-pressure reading, without diagnosis of hypertension; R11.0 Nausea; Z3A.36 36 weeks gestation of pregnancy
CPT/HCPCS: 36415; 59025; 59050; 82565; 82570; 84156; 84450; 84460; 84550; 85027; 85610; 85730; 99218; G0378

== ENCOUNTER → 2018-08-21 17:54 | Outpatient (CLI) | payer OTHER, SELFPAY ==
[2018-08-21 08:48] VITALS: BMI 28.1
== END ==
PROVIDERS: Family Provider Family Medicine; PCP Family Medicine; Referring Provider Obstetrics & Gynecology; Visit Provider Obstetrics & Gynecology
DX: Z34.90 Encounter for supervision of normal pregnancy, unspecified, unspecified trimester (principal)
CPT/HCPCS: 87081

== ENCOUNTER 2018-09-04 10:11 | Inpatient (IN) | payer OTHER, SELFPAY ==
[2018-09-04 08:51] VITALS: BMI 29.2
[2018-09-04 10:36] VITALS: BMI 29.0
[2018-09-04] MEDS: Lactated Ringers 1,000 ML 50 ML IV ×3 (14:20→21:55)
[2018-09-04] MEDS: Oxytocin 30 units/NS 500 ml 30 UNITS/500 ML IV.SOLN IV (14:20)
[2018-09-04 14:30] LABS: Hematocrit 32.4 % (37-47); Hemoglobin 10.7 g/dl (12.0-15.0); Mean Corpuscular Hgb 29.3 pg (27.0-32.0); Mean Corpuscular Volume 88.8 fL (81-99); Mean Platelet Vol. 11.5 fl (6.2-12.0); Platelet Count 265 K/mm3 (150-450); RBC Distribution Width CV 14.7 % (11.6-14.6); Red Blood Count 3.65 M/mm3 (4.2-5.4); White Blood Count 10.6 K/mm3 (4.4-11.0)
[2018-09-04 14:32] LABS: Scan Indicated on CBC? Y/N NO
[2018-09-04] MEDS: Acetaminophen 325 MG Tablet PO ×2 (15:00→23:53)
[2018-09-04] MEDS: Ondansetron 4 MG/2 ML Vial IV (16:18)
[2018-09-04] MEDS: fentaNYL-bupivacaine (epidural) 100 ML BAG EPIDURAL ×2 (17:33→22:34)
[2018-09-05] VITALS (7 sets, daily range): BP systolic 106–123; BP diastolic 56–70; PULSE 98–135; RESP 16–22; TEMP 36.2–37.2; O2SAT 98–100
[2018-09-05] MEDS: Oxytocin 30 units/NS 500 ml 30 UNITS/500 ML IV.SOLN 334 UNITS IV (00:59)
[2018-09-05] MEDS: Oxytocin 30 units/NS 500 ml 30 UNITS/500 ML IV.SOLN 167 UNITS IV (01:30)
--- NOTE | 2018-09-05 01:43 | HP.PCM_ITS ---
- Problem List (1) Oligohydramnios Status: Acute (2) Anemia affecting Status: Acute Qualifiers: (3) Status: Acute Qualifiers: Comment: sequential screen negative. carrier screening negative. anatomy scan negative. (4) Choroid plexus cyst Status: Acute (5) screening encounter Status: Acute Comment: NT/Sequential screen: negative (6) Vertebral artery dissection Status: Chronic Comment: mfm consult- recommend laboring down and limit maternal pushing, proceed with VAVD NT normal 03/05/18 (7) Supervision of normal Status: Acute Qualifiers: Comment: PRR LÁZARO 09/12/18 Meño History Date of Admission: 09/05/18 Final LÁZARO: 09/12/18 Gestational age: 39 Weeks and 0 Days History of this : This is a 28 year-old, G [], P [], at 38 weeks gestational age. Medical History: Medical History (Last Reviewed 09/04/18 @ 08:55 by Mavis Hawley) Z34.90 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 Surgical History: Surgical History (Last Reviewed 09/04/18 @ 08:55 by Mavis Hawley) H/O dilation and curettage Z98.890 Allergies No Known Allergies Allergy (Verified 09/04/18 08:51) Home Medications: Home Medications lactobacillus combination no.8 3 billion cell capsule 3,000 mmu cells PO QDAY 02/13/18 vitamin,calcium,gfcqobso-rkdk-yzriq acid tablet 1 tab PO QDAY 02/13/18 aspirin 81 mg chewable tablet 81 mg PO DAILY 05/08/18 Ferrous Sulfate, Dried [Iron] 22 mg PO 09/04/18 Iron 09/04/18 Smoking Status: Never smoker Alcohol: None Number of Fetus(es): 1 Heart Tracins-130s moderate variability reactive no decelerations category 1 tracing TOCO Analysis: Irregular contractions History Past Pregnancies: Past Pregnancies Delivery Date Name GA/Weeks Outcome Route Weight Gender Labor Length Anesthesia Delivery Location Provider FOB Labs: [facility] Labs & Results 09/04/18 09/04/18 14:15 14:15 WBC 10.6 RBC 3.65 L Hgb 10.7 L Hct 32.4 L MCV 88.8 MCH 29.3 MCHC 33.0 RDW 14.7 H RDW Differential 46.0 H Plt Count 265 MPV 11.5 Blood Type A POSITIVE Antibody Screen NEGATIVE Course Did the patient receive Yes care? Labs Blood Type: A RH: POSITIVE RPR/VDRL/Syphilis Nonreactive Rubella status Immune HbSAg Negative Date Done: 02/13/18 Chlamydia Negative Gonorrhea Negative HIV/AIDS Non-Reactive Group B Strep: Negative Current Obstetrical History Gestational Diabetes No Incompetent Cervix No Infertility No IUGR No Macrosomia No Hypertension/Pre-eclampsia No Placenta Previa/Abruption No PTL/PROM No Uterine anomaly No Oligohydramnios Yes Polyhydramnios No Multiple gestation No Past Medical History Asthma No Diabetes No Hypertension No Heart disease No Mitral valve prolapse No Neurologic/Seizure disorder/ No Migraines Kidney disease No Liver disease No Varicosities No Clotting disorders/Hx of DVT No Thyroid Dysfunction No Other medical diseases Yes: vertebral artery dissection right side Psychiatric disorders No Major trauma No Abnormal PAP smear No Sleep apnea No Mammogram in the last 2 years No Social History Marital Status: Alleged father Meño Hx Smoking No Smoking Status Never smoker Expected Infant Delivery Method: Vacuum Extraction Review of Systems Constitutional: Denies: Fever, Malaise Eyes: Denies: Blurred vision, Vision Change HEENT: Denies: Head Aches, Visual Changes Cardiovascular: Denies: Chest Pain, Palpitations Respiratory: Denies: Cough, Shortness of Breath, Wheezing Gastrointestinal: Denies: Abdominal Pain, Diarrhea, Nausea, Vomiting Genitourinary: Denies: Dysuria, Hematuria Musculoskeletal: Denies: Joint Pain, Muscle pain Skin: Denies: Lesions, Rash Neurological: Denies: Blurred vision, Focal weakness, Headaches Psychiatric: Denies: Anxiety, Depression Endocrine: Denies: Heat/ Cold Intolerance Hematologic/ Lymphatic: Denies: Easy Bruising, Easy Bleeding Physical Exam General: Alert, Cooperative, No apparent distress HEENT: Atraumatic, Normocephalic. Negative for: Thyromegaly, Lymphadenopathy Cardiovascular: Regular rate Lungs: Normal air movement Abdomen: Soft, Non Tender, Gravid - KASIA 4.8 cm in the office today Neurological: Deep Tendon Reflexes 2+/4 and Symmetrical, Neuro grossly intact. 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 Negative for: Vulvar lesions Estimated gestational size: Appropriate for gestational size Presentation: Cephalic Cervix Dilation (cm): 3 Assessment/Plan All Active Problems (Last Reviewed 09/04/18 @ 08:55 by Mavis Hawley) Oligohydramnios (Acute) Anemia affecting (Acute) (Acute) Choroid plexus cyst (Acute) screening encounter (Acute) Supervision of normal (Acute) Elevated blood pressure affecting in third trimester, antepartum (Resolved) Pharyngitis (Resolved) URI (upper respiratory infection) (Resolved) This is a 28 year-old, at 38 weeks gestational age presents for induction of labor secondary to oligohydramnios. Patient presents induction of labor secondary to oligohydramnios. KASIA was 4.8 cm in the office today. Plan Pitocin and AROM clear fluid. Pain management: epidural. GBS negative. Management of any complications: Patient is a history of a vertebral artery dissection and had evaluation by neurology and MFM and it was recommended for her to not have excessive Valsalva maneuvers therefore we will plan on a vacuum-assisted vaginal delivery with minimal pushing I have reviewed the [facility] and made any clinically relevant updates.
--- NOTE | 2018-09-05 01:44 | PCM.OB.VAG ---
- Problem List (1) Oligohydramnios Status: Acute (2) Anemia affecting Status: Acute Qualifiers: (3) Status: Acute Qualifiers: Comment: sequential screen negative. carrier screening negative. anatomy scan negative. (4) Choroid plexus cyst Status: Acute (5) screening encounter Status: Acute Comment: NT/Sequential screen: negative (6) Vertebral artery dissection Status: Chronic Comment: mfm consult- recommend laboring down and limit maternal pushing, proceed with VAVD NT normal 03/05/18 (7) Supervision of normal Status: Acute Qualifiers: Comment: PRR LÁZARO 09/12/18 Meño Vaginal Delivery Maternal Presentation: Medically Indicated Induction 28-year-old at 39 weeks presents for induction of labor secondary to oligohydramnios KASIA was 4.8 cm in the office today Method of Induction: Pitocin Medical Reason for Induction: Maternal Medical Condition: list: - Oligo hydramnios Amniotic Membrane Rupture Type: Artificial Amniotic Fluid Description: Clear Final LÁZARO: 09/12/18 Gestational age: 39 Weeks and 0 Days Date of Procedure: 09/05/18 Pre-Operative Diagnosis: Induction of labor oligohydramnios Post-Operative Diagnosis: Same Surgery/ Procedure Performed: Vacuum Assisted Vaginal Delivery Type of Anesthesia: Epidural Description of Procedure: Patient was labor down for over an hour and a half and was found to be in a +3 station and CHESTER presentation. Vacuum was applied and patient began pushing with a gentle Valsalva maneuver. There was good descent with 2 contractions with application of the vacuum. After the first pop off her right medial lateral episiotomy was cut and vacuum reapplied and traction applied and there was again good descent noted but it was difficult to remain suction due to some It on the top of the head. After 2 additional pop offs the vacuum was removed and the head was in a +5 station and therefore the decision was made to allow the patient to gently Valsalva to deliver. Using tug-of-war the patient gently Valsalva's until the head delivered within a few contractions and delivered the head in the CHESTER presentation. The head was delivered atraumatically and a loose nuchal x1 was identified and easily reduced over the infant's head. The anterior and posterior shoulders delivered without complication followed by the rest of the infant and the was placed on the maternal abdomen. Delayed cord clamping was employed for approximately 60 seconds. Cord was clamped and cut and gentle traction was applied to the cord and the placenta delivered spontaneously immediately following it was noted to be intact with three-vessel cord. The perineum and vagina were inspected and noted to have no extension of the episiotomy was at the level of a second-degree perineal laceration which was repaired in the usual fashion with 3-0 Vicryl Rapide and a finger was inserted in the rectum to ensure no breakthrough of suture.. EBL was 400 cc. Patient and infant tolerated delivery well. Presentation: CHESTER Placental Delivery Description: Spontaneous Placenta Disposition: [facility] Cord Vessel Description: 3 Vessels Nuchal Cord Compression: Without compression Cord Entanglement: Around neck x 1, loose Estimated Blood Loss: 400 Infant A gender: Female Episiotomy Description: Right Mediolateral, Perineal Extension/lac, 2nd degree Medications given after delivery: IV Pitocin Complications: None
--- NOTE | 2018-09-05 02:01 | DCINST_ITS ---
Discharge Diet: No Restrictions Discharge Activity: Return to Normal Activity, May not drive while taking narcotic pain medications., May Shower May resume sexual activity in: 4-6 weeks Call your doctor if your incision/area has: Continuous Slow Oozing, Sudden Increased Bleeding, Increased Pain/ Swelling, Increased Redness, Foul Smelling Discharge Additional Instructions: If you experience any of the following, contact your healthcare provider. * Bleeding that soaks a pad every hour for 2 hours * Fever 100.4 or higher * Unrelieved incision or abdominal pain * Swelling, redness, discharge or bleeding from your incision or episiotomy site * Your incision begins to separate * Problems urinating (including inability to urinate or burning while urinating). * Visual changes * Severe headache * Flu-like symptoms * Pain or redness in one of both of your breasts * Pain, warmth, tenderness or swelling in your legs, especially the calf area * Frequent nausea and vomiting * Symptoms of depression or anxiety If you experience any of the following, call 911 or go to the nearest Emergency Room. * Chest pain * Problems breathing * Seizure activity * Partial or complete paralysis of a body part, slurred speech, weakness or drooping of the face, or a sudden inability to walk or hold your balance Allergies/Adverse Reactions: Allergies No Known Allergies Allergy (Verified 09/04/18 08:51) Medications to take at Discharge lactobacillus combination no.8 3 billion cell capsule 3,000 mmu cells PO QDAY 02/13/18 vitamin,calcium,pqschwdb-ehqo-tgkpn acid tablet 1 tab PO QDAY 02/13/18 aspirin 81 mg chewable tablet 81 mg PO DAILY 05/08/18 Ferrous Sulfate, Dried [Iron] 22 mg PO 09/04/18 Iron 09/04/18 Naproxen [Naprosyn] 250 - 500 mg PO Q8H PRN PRN #30 tablet 09/05/18 The following prescriptions were given: Naproxen [Naprosyn] 250 - 500 mg PO Q8H PRN PRN #30 tablet PRN Reason: MILD PAIN Please Follow Up With: Flower Castro MD - [phone] When: Call to make an appointment with your doctor in 6 weeks. If you had elevated Blood pressure or 4th degree laceration you will need to be seen in 2 weeks. Primary Care Physician: Jono Pearson III, MD [Primary Care Provider] - Test Results: Test results from this visit will be discussed in further detail at your follow- up appointment, if applicable.
[2018-09-05] MEDS: 0.9% Saline Lock 10 ML Syringe IV (02:41)
--- NOTE | 2018-09-05 04:20 | NURSING ---
epidural discontinued with blue tip intact. pt tolerated well
--- NOTE | 2018-09-05 05:28 | NURSING ---
pt ambulated to restroom with two RNs. pt able to sit on toilet and urinate for first time since delivery. pt stated she felt dizzy. at this time, both RNs had pt in arms. pt passed out and ammonia salt provided by third RN assistance. pt able to verbally respond shortly after and orange juice and snack was provided. katy care completed. pt taken back to bed with wheelchair and 2 RN assist. no further needs at this time.vitals obtained and stable.
[2018-09-05] MEDS: Naproxen 250 MG Tablet PO (05:58)
[2018-09-05] MEDS: oxyCODONE 5 MG Tablet PO ×3 (07:15→19:45)
[2018-09-05] MEDS: Aspirin 81 MG TAB.CHEW PO (07:15)
[2018-09-05] MEDS: Dibucaine 30 GM Tube 1 APPLIC TOPICAL (08:33)
[2018-09-05] MEDS: Senna/Docusate Sodium 1 Tablet PO (11:36)
[2018-09-05] MEDS: Ketorolac 10 MG Tablet PO ×2 (13:22→19:21)
[2018-09-05] MEDS: Prenatal Vits Tablet 1 TABLET PO (13:22)
[2018-09-06] MEDS: oxyCODONE 5 MG Tablet PO ×4 (00:12→22:42)
[2018-09-06] MEDS: Ketorolac 10 MG Tablet PO ×4 (02:54→22:03)
[2018-09-06 03:07] VITALS: BP 132/74; PULSE 118; RESP 16; TEMP 36.4; O2SAT 100
[2018-09-06 05:50] VITALS: PULSE 90
[2018-09-06] MEDS: Acetaminophen 500 MG Tablet 1000 MG PO ×2 (07:58→17:40)
[2018-09-06] MEDS: Senna/Docusate Sodium 1 Tablet PO (07:59)
[2018-09-06 08:00] VITALS: BP 141/74; PULSE 105; RESP 18; TEMP 36.2
--- NOTE | 2018-09-06 08:10 | PCM.PN.OB ---
Patient Problems: Active and Suspected Problems (Last Reviewed 09/04/18 @ 08:55 by Mavis Hawley) Oligohydramnios (Acute) Subjective: doingw ell, co right buttox pain but improving - Physical Exam General: Alert, Oriented x3 Vital Signs Temp Pulse Resp BP Pulse Ox 97.2 F L 105 H 18 141/74 H 100 09/06/18 08:00 09/06/18 08:00 09/06/18 08:00 09/06/18 08:00 09/06/18 03:07 Oxygen Delivery Method Room Air Weight: 185 lb 10.067 oz Body Mass Index (BMI) 29.0 Intake and Output for Last 24 Hours 09/04/18 09/05/18 09/06/18 23:59 23:59 23:59 Intake Total 1817 / 1817 1576 / 1576 Output Total 800 / 800 1300 / 1300 Balance 1017 / 1017 276 / 276 Medical Necessity - Tobacco Use Smoking Status: Never smoker Assessment/Plan All Active Problems (Last Reviewed 09/04/18 @ 08:55 by Mavis Hawley) Oligohydramnios (Acute) Anemia affecting (Acute) (Acute) Choroid plexus cyst (Acute) screening encounter (Acute) Supervision of normal (Acute) Elevated blood pressure affecting in third trimester, antepartum (Resolved) Pharyngitis (Resolved) URI (upper respiratory infection) (Resolved) s/p PPD # 1 1. routine post delivery care 2. breast feeding- support given 3. perirectal pain- stool softeners, oxy and toradol 4. rubella immune
[2018-09-06] MEDS: Prenatal Vits Tablet 1 TABLET PO (10:36)
[2018-09-06 14:00] VITALS: BP 133/80; PULSE 105; RESP 18; TEMP 36.3
[2018-09-06 20:15] VITALS: BP 135/84; PULSE 102; RESP 16; TEMP 36.3; O2SAT 98
[2018-09-06] MEDS: Aspirin 81 MG TAB.CHEW PO (22:03)
[2018-09-07 01:20] VITALS: BP 134/80; PULSE 102; RESP 16; TEMP 36.6; O2SAT 98
[2018-09-07] MEDS: Senna/Docusate Sodium 1 Tablet PO (01:20)
[2018-09-07] MEDS: oxyCODONE 5 MG Tablet PO ×2 (02:58→10:12)
[2018-09-07] MEDS: Ketorolac 10 MG Tablet PO ×2 (04:06→10:11)
[2018-09-07 07:40] VITALS: BP 125/79; PULSE 105; RESP 16; TEMP 36.1; O2SAT 98
[2018-09-07] MEDS: Prenatal Vits Tablet 1 TABLET PO (10:12)
[2018-09-07 12:58] VITALS: BP 139/87; PULSE 104; RESP 14; TEMP 36.3; O2SAT 96
== END 2018-09-07 13:20 | disposition home or self-care (01) | DRG 805 ==
LOC: WPOUT 10:12 → WP 10:12 → WPOUT 10:26
PROVIDERS: Admitting Provider Obstetrics & Gynecology; Family Provider Family Medicine; PCP Family Medicine; Referring Provider Obstetrics & Gynecology; Visit Provider Obstetrics & Gynecology
DX: O41.03X0 Oligohydramnios, third trimester, not applicable or unspecified (principal); O99.42 Diseases of the circulatory system complicating childbirth; Z37.0 Single live birth; I77.74 Dissection of vertebral artery; O99.354 Diseases of the nervous system complicating childbirth; G93.0 Cerebral cysts; O99.02 Anemia complicating childbirth; D64.9 Anemia, unspecified; O69.81X0 Labor and delivery complicated by cord around neck, without compression, not applicable or unspecified; O99.89 Other specified diseases and conditions complicating pregnancy, childbirth and the puerperium; K62.89 Other specified diseases of anus and rectum; Z79.82 Long term (current) use of aspirin; Z3A.39 39 weeks gestation of pregnancy
CPT/HCPCS: 59025; 59050; 85027; 86850; 86900; 99218; J7120; A4216; G0378; J2405

== ENCOUNTER → 2020-12-26 09:12 | Outpatient (CLI) | payer OTHER, SELFPAY ==
[2020-12-26 08:25] VITALS: BMI 27.3
[2020-12-26 09:26] LABS: Absolute Lymphocyte Count 1.83 X10^3/uL (0.83-4.51); Basophil# 0.04 X10^3/uL; Basophil% 0.6 % (0-1); Eosinophil# 0.11 X10^3/uL; Eosinophils% 1.6 % (0-5); Hematocrit 39.7 % (37-47); Hemoglobin 12.8 g/dL (12.0-15.0); Lymphocyte # 1.83 X10^3/ul (4.0); Lymphocyte % 27.2 % (19-41); Mean Corp Hgb Conc 32.2 g/dL (32-36); Mean Corpuscular Hgb 29.2 pg (27.0-32.0); Mean Corpuscular Volume 90.4 fL (81-99); Mean Platelet Vol. 10.6 fl (6.2-12.0); Monocyte# 0.78 X10^3/uL; Monocyte% 11.6 % (0-10); NRBC Flagged by Analyzer 0 % (0-5); Neutrophil # 3.96 X10^3/uL (2.7-7.7); Neutrophil % 58.9 % (47-70); Platelet Count 280 K/mm3 (150-450); RBC Distribution Width CV 13.2 % (11.6-14.6); RBC Distribution Width SD 43.4 fl (35.1-43.9); Red Blood Count 4.39 M/mm3 (4.2-5.4); White Blood Count 6.7 K/mm3 (4.4-11.0)
[2020-12-26 09:48] LABS: Cholesterol 207 mg/dL (200); Glucose 94 mg/dL (74-106); High Density Lipoprotein 86 mg/dL; Thyroid Stim Hormone (TSH) 0.93 uIU/mL (0.358-3.74); Triglycerides 45 mg/dL; Very Low Density Lipoprotein 9 mg/dL (5-40)
[2020-12-28 16:18] LABS: HPV Reflexed? NOT INDICATED
== END ==
PROVIDERS: PCP Family Medicine; Referring Provider Obstetrics & Gynecology; Visit Provider Obstetrics & Gynecology
DX: R53.83 Other fatigue (principal); Z12.4 Encounter for screening for malignant neoplasm of cervix; Z13.220 Encounter for screening for lipoid disorders; Z13.1 Encounter for screening for diabetes mellitus
CPT/HCPCS: 36415; 80061; 82306; 82947; 84443; 85025; 88175; G0145

== ENCOUNTER 2021-05-08 16:27 | Emergency (ER) | payer OTHER, SELFPAY ==
[2021-05-08 16:28] VITALS: BP 142/101; PULSE 99; RESP 18; TEMP 36.2; O2SAT 100; BMI 27.1
[2021-05-08 18:30] VITALS: BP 135/80; BP 136/79; BP 137/84; PULSE 100; PULSE 119; PULSE 85
[2021-05-08 18:46] LABS: Absolute Lymphocyte Count 2.67 X10^3/uL (0.83-4.51); Absolute Neutrophil Count 6.6 X10^3/uL (2.0-7.7); Basophil# 0.04 X10^3/uL; Basophil% 0.4 % (0-1); Eosinophil# 0.02 X10^3/uL; Eosinophils% 0.2 % (0-5); Hemoglobin 13.3 g/dL (12.0-15.0); Lymphocyte # 2.67 X10^3/ul (0.83-4.51); Lymphocyte % 26.9 % (19-41); Mean Corp Hgb Conc 32.4 g/dL (32-36); Mean Corpuscular Volume 89.3 fL (81-99); Mean Platelet Vol. 11.3 fl (6.2-12.0); Monocyte# 0.61 X10^3/uL; Monocyte% 6.1 % (0-10); NRBC Flagged by Analyzer 0 % (0-5); Neutrophil # 6.56 X10^3/uL (2.7-7.7); Platelet Count 318 K/mm3 (150-450); RBC Distribution Width CV 13.2 % (11.6-14.6); RBC Distribution Width SD 43.2 fl (35.1-43.9); Red Blood Count 4.59 M/mm3 (4.2-5.4); White Blood Count 9.9 K/mm3 (4.4-11.0)
[2021-05-08 19:01] LABS: AST(SGOT) 18 U/L (15-37); Alanine Aminotransfer ALT/SGPT 29 U/L (13-56); Albumin, Serum 4.3 g/dL (3.2-5.0); Alkaline Phosphatase 63 U/L (45-117); Anion Gap 5 (5-15); BUN 4 mg/dL (7-18); BUN/Creat Ratio 6.3 RATIO (10-20); Calcium,Total 9.2 mg/dL (8.5-10.1); Chloride 106 mmol/L (98-107); Creatinine, Serum 0.64 mg/dL (0.55-1.02); EST Glomerular Filtration Rate 117 mL/min (>60); Est Glom Filt Rate - Afr Amer 141 mL/min (>60); Estimated Creatinine Clearance 124.99 ml/min; Globulin 4.3 g/dL (2.2-4.2); Glucose 84 mg/dL (74-106); Potassium 3.7 mmol/L (3.5-5.1); Protein, Total 8.6 g/dL (6.4-8.2); Sodium Level 140 mmol/L (136-145)
--- NOTE | 2021-05-08 19:51 | CM.ED ---
SW Note Referral Source: Case Find Referral Reason: No Primary Care Physician (PCP) SW reviewed chart and noted that patient has no PCP. SW provided patient with list of [facility] and [facility] Physician List for reference. SW also provided patient with handout ?Where to go When?. No other issues or concerns voiced at this time. SW remains available for any additional needs. Plan: Provided patient with PCP information Mary Beth CASTRO
--- NOTE | 2021-05-08 19:59 | EX.ED.DYSGE1 ---
HPI History of Present Illness Chief Complaint: Fatigue Detail of Chief Complaint: Dizziness nausea Informant: patient Onset/Context/Timing Onset: Weeks (Onset is greater than 1 week) Context: Sudden Onset Timing: Intermittent Quality: Dizziness which she defines as lightheaded and at times spinning Current Severity: Mild Maximum Severity: Moderate Worsened by: Change in position Relieved by: Nothing Associated Symptoms Associated Symptoms: Nausea, generalized weakness/fatigue, headache Narrative Narrative: Patient is a 31-year-old female with history of fatigue and vertebral artery dissection. She was diagnosed with a vertebral artery dissection 2016 and on aspirin for 1.5 years. When she was diagnosed with the ventricular dissection it was chronic. Patient had the vertebral artery dissection reassessed in 2018 and is unchanged. She has not had any chiropractic manipulation. There is been no history of trauma. She has not been sneezing or coughing. She has been sick and the illness was thought to be due to otitis and she was not tested for Covid at that time. She was tested 2 to 3 weeks after the onset of illness and had a negative Covid test. Uncertain what test was performed unable to say with any degree of certainty whether patient did or did not have Covid. She denies headache. Denies visual disturbance. Denies ringing or ears decreased hearing. Denies cardiac respiratory symptoms. Does complain of nausea. She denies PFSH [facility] Medical History (Updated 05/08/21 @ 20:[address] Renaldo Vo MD) Vertebral artery dissection Allergy/AdvReac Type Severity Reaction Status Date / Time No Known Allergies Allergy Verified 05/08/21 16:28 Family History Mother Parkinson disease Surgical History H/O dilation and curettage Social History (Updated 12/26/20 @ 10:[address] Flower Castro MD) Smoking Status: Never smoker alcohol intake: never substance use type: does not use caffeine: Yes what type of physical activity do you participate in: walking and running frequency: 1-2 times per week seatbelt use: always do you feel safe at home: Yes additional social history: Spouse Tim AGUIRRE ROS ED Constitutional Constitutional ED: Denies chills, fever(s), subjective or sweats Eyes Eyes: Denies blurry vision, change in vision or diplopia ENT ENT ED: Reports other Details: Muffled hearing has resolved. ; Denies ear pain, rhinorrhea or sore throat Cardiovascular Cardiovascular: Denies chest pain, orthopnea, palpitations, paroxysmal nocturnal dyspnea or racing heartbeat Respiratory/Chest Respiratory/Chest: Denies cough, dyspnea, dyspnea on exertion, orthopnea, paroxysmal nocturnal dyspnea or sputum Gastrointestinal Gastrointestinal: Denies abdominal pain, diarrhea, nausea or vomiting Genitourinary Genitourinary ED: Denies dysuria, hematuria or urinary frequency Musculoskeletal Musculoskeletal: Denies arthralgias, myalgias or neck pain Integumentary Denies rash Neurologic Neurologic: Denies headache(s), paresthesias or weakness Psychiatric Psychiatric: Reports anxiety Endocrine Endocrinology: Denies heat intolerance, polydipsia, polyphagia or polyuria Allergic/Immunologic Allergic/Immunologic ED: Denies mouth swelling or urticaria EXAM Physical Exam Const Vital Signs: 05/08/21 16:28 05/08/21 18:02 05/08/21 18:30 Temperature 97.1 F L Temperature Source Temporal Pulse Rate 99 Pulse Rate [Lying] 85 Pulse Rate [Sitting] 119 H Pulse Rate [Standing] 100 Respiratory Rate 18 Respiratory Effort Normal Non-Labored Blood Pressure 142/101 H Blood Pressure [Lying] 136/79 H Blood Pressure [Sitting] 137/84 H Blood Pressure [Standing] 135/80 H Blood Pressure Mean 114 Blood Pressure Mean [Lying] 98 Blood Pressure Mean [Sitting] 101 Blood Pressure Mean [Standing] 98 Pulse Ox 100 Oxygen Delivery Method Room Air Positive well nourished and well developed General Appearance ED: well developed and NAD HEENT Reports TM's clear and moist mucous membranes HEENT Narrative: The left TM is slightly retracted. Head is atraumatic normocephalic. Nares patent. Uvula is midline. There is no erythema or exudate posterior pharynx. Negative for trauma or tenderness Tympanic Membrane ED: Yes TM's clear Eyes PERRL and EOMs intact bilaterally General Eye ED: Negative for pale conjunctiva Neck no lymphadenopathy, supple and no JVD Chest Wall inspection of chest normal Resp normal respiratory effort and clear to auscultation bilaterally Cardio regular rate, regular rhythm, S1 normal heart sound, S2 normal heart sound and no murmurs GI normal to inspection, nondistended, normoactive bowel sounds, non-tender and non-distended Palpation: soft Back/Spine no CVA tenderness Thoracic Spine / Upper Back: Negative for paraspinal muscle tenderness Extremity normal to inspection General Extremety ED: Negative for edema or tenderness General Extremity: Negative for edema Neuro oriented x3, CN's II-XII intact bilaterally and no sensory deficits noted Neuro Narrative: There is no dysmetria. Romberg with eyes open and close is normal. Gait normal. Able to walk on heels and toes. Tandem gait was normal. The eye askew test was negative. The hint test was negative. [place]-Hallpike maneuver was negative. Sensorium / Orientation: alert Motor Exam: strength 5/5 throughout Psych mental status grossly normal Skin no rashes or lesions noted, no wounds and skin turgor normal MDM MDM MDM Narrative Medical decision making narrative: CBC was obtained to assess for anemia and leukocytosis. Basic metabolic panel was obtained to assess for electrolyte abnormality, renal function. Of note patient was seen [address] Abdirizak Naqvi and the cause of her symptoms was unknown. Lab Data Attestation: I reviewed the patient's lab results. Lab results narrative: Patient was informed of laboratory results unremarkable. Plan is to discharge to home. She was told the cause of her symptoms is unknown. Labs: Laboratory Results - last 24 hr 05/08/21 05/08/21 18:33 18:33 WBC 9.9 RBC 4.59 Hgb 13.3 Hct 41.0 MCV 89.3 MCH 29.0 MCHC 32.4 RDW Std Deviation 43.2 RDW Coeff of Sara 13.2 Plt Count 318 MPV 11.3 Immature Gran % (Auto) 0.400 Neut % (Auto) 66.0 Lymph % (Auto) 26.9 [place] % (Auto) 6.1 Eos % (Auto) 0.2 Baso % (Auto) 0.4 Absolute Neuts (auto) 6.6 Absolute Lymphs (auto) 2.67 Nucleated RBC % 0 Sodium 140 Potassium 3.7 Chloride 106 Carbon Dioxide 29.0 Anion Gap 5 BUN 4 L Creatinine 0.64 Estim Creat Clear Calc 124.99 Est GFR (MDRD) Af Amer 141 Est GFR (MDRD) Non-Af 117 BUN/Creatinine Ratio 6.3 L Glucose 84 Calcium 9.2 Total Bilirubin 0.50 AST 18 ALT 29 Alkaline Phosphatase 63 Total Protein 8.6 H Albumin 4.3 Globulin 4.3 H Albumin/Globulin Ratio 1.0 Discharge Plan Triage Chief Complaint: Fatigue ED Provider: Renaldo Vo Dx/Rx/DC Orders Clinical Impression: Fatigue Instructions: ED Weakness (Uncertain Cause) Primary Care Provider: Care Physician,No Primary Referrals: Karoline Box MD [STAFF PHYSICIAN] - 1 Week if not improving Care Physician,No Primary [Primary Care Provider] - Disposition Disposition: Home, Self Care
[2021-05-08 20:25] VITALS: BP 140/93; PULSE 90; RESP 12; O2SAT 98
== END 2021-05-08 20:25 | disposition home or self-care (01) ==
PROVIDERS: Emergency Provider Emergency Medicine
DX: R53.83 Other fatigue (principal); R11.0 Nausea; R42 Dizziness and giddiness; R53.1 Weakness
CPT/HCPCS: 80053; 85025; 99284; A4216

== ENCOUNTER → 2021-06-26 12:10 | Outpatient (CLI) | payer OTHER, SELFPAY | PROVIDERS: Referring Provider Physician Assistant; Visit Provider Physician Assistant | DX: R51.9 Headache, unspecified (principal) | CPT/HCPCS: 87635; U0005; U0003 ==

== ENCOUNTER 2021-09-15 16:35 | Emergency (ER) | payer OTHER, SELFPAY ==
[2021-09-15 16:38] VITALS: BP 144/96; PULSE 108; RESP 16; TEMP 35.8; O2SAT 100; BMI 23.9
--- NOTE | 2021-09-15 16:48 | EDS_ITS ---
HPI History of Present Illness Chief Complaint: Suicidal [facility] Medical History Encounter for screening for COVID-19 Vertebral artery dissection Home Medications citalopram 20 mg tablet 20 mg PO DAILY #30 tab 05/11/21 [Rx Last Taken Unknown] lorazepam 0.5 mg tablet 0.5 mg PO TID PRN #30 tab 05/11/21 [Rx Last Taken Unknown] prednisone 10 mg tablet 10 mg PO .COMPLEX #30 tab 09/13/21 [Rx Last Taken Unknown] Allergy/AdvReac Type Severity Reaction Status Date / Time No Known Allergies Allergy Verified 09/15/21 16:47 Family History Mother Parkinson disease Surgical History H/O dilation and curettage Social History Smoking Status: Never smoker alcohol intake: never substance use type: does not use caffeine: Yes what type of physical activity do you participate in: walking and running frequency: 1-2 times per week seatbelt use: always do you feel safe at home: Yes additional social history: Spouse Tim EXAM Physical Exam Const Vital Signs: 09/15/21 16:38 Temperature 96.4 F L Temperature Source Temporal Pulse Rate 108 H Respiratory Rate 16 Blood Pressure 144/96 H Blood Pressure Mean 112 Pulse Ox 100 Oxygen Delivery Method Room Air Discharge Plan Triage Chief Complaint: Suicidal ED Provider: Carlos So Dx/Rx/DC Orders Prescriptions: No Action citalopram 20 mg tablet 20 mg PO DAILY Qty: 30 RF: 12 lorazepam 0.5 mg tablet 0.5 mg PO TID PRN (Reason: anxiety) Qty: 30 RF: 0 prednisone 10 mg tablet 10 mg PO .COMPLEX Qty: 30 RF: 0 Primary Care Provider: Care Physician,No Primary
--- NOTE | 2021-09-15 17:00 | EX.ED.DYSGE1 ---
HPI History of Present Illness Chief Complaint: Suicidal Informant: patient and spouse/S.O. Narrative Narrative: Patient has complaints of bad anxiety. This has been getting worse for 5 or 6 months. The last 2 or 3 weeks have been the worse. She just started citalopram over the last week. She states it is not helping her anxiety or her sleep. She thinks her sleep is actually gotten worse. She slept about 1 hour on Friday and Friday. She slept about 4 hours on Friday. She did take a as needed Ativan that helped her sleep but it was still only for about an hour. She states she is fixated on her breathing. She watches and thinks about her breathing all the time. She states she is not really short of breath she just cannot stop thinking about the breathing. This is preventing her from sleeping. She states she does have a little nasal congestion and a nonproductive cough but does not feel ill. She had Covid a little over a year ago. She has not been vaccinated. She is not having chest pain. In the past she has had fleeting thoughts of hurting herself but never had a plan and never thought about actually doing it. Over the last couple days these thoughts are harder to get rid of. She still has no plan. She does not want to hurt herself but she cannot get the thoughts out of her mind. She is thinking that there is just no way out of her breathing problem and anxiety. Her verifies that she has been bringing up some mild thoughts of harm without a plan much more frequently and just the last day. Patient talked to her counselor by phone today who referred her in here. She has never been admitted for psychiatric reasons. [facility] Medical History Anxiety Depression Vertebral artery dissection Home Medications lorazepam 0.5 mg tablet 0.5 mg PO TID PRN #30 tab 05/11/21 [Rx Last Taken Unknown] Allergy/AdvReac Type Severity Reaction Status Date / Time No Known Allergies Allergy Verified 09/15/21 16:47 Family History Mother Parkinson disease Surgical History H/O dilation and curettage Social History Smoking Status: Never smoker alcohol intake: never substance use type: does not use caffeine: Yes what type of physical activity do you participate in: walking and running frequency: 1-2 times per week seatbelt use: always do you feel safe at home: Yes additional social history: Spouse Tim AGUIRRE ROS ED Constitutional Constitutional ED: Denies chills or fever(s) Eyes Eyes: Denies blurry vision or change in vision ENT ENT ED: Reports rhinorrhea; Denies sore throat Cardiovascular Cardiovascular: Denies chest pain or palpitations Respiratory/Chest Respiratory/Chest: Reports cough; Denies dyspnea or sputum Gastrointestinal Gastrointestinal: Denies nausea or vomiting Genitourinary Genitourinary ED: Denies hematuria Musculoskeletal Musculoskeletal: Denies myalgias Integumentary Denies rash Neurologic Neurologic: Denies headache(s) or weakness Psychiatric Psychiatric: Reports anxiety, depression and suicidal thoughts Endocrine Endocrinology: Denies polydipsia or polyuria Allergic/Immunologic Allergic/Immunologic ED: Denies mouth swelling or urticaria EXAM Physical Exam Const Vital Signs: 09/15/21 16:38 09/15/21 19:00 Temperature 96.4 F L Temperature Source Temporal Pulse Rate 108 H Respiratory Rate 16 16 Blood Pressure 144/96 H Blood Pressure Mean 112 Pulse Ox 100 Oxygen Delivery Method Room Air Positive well nourished and well developed General Appearance ED: well developed and NAD; Negative for cyanotic or diaphoretic HEENT Negative for trauma Eyes General Eye ED: Negative for pale conjunctiva or scleral icterus Neck no JVD Chest Wall inspection of chest normal Resp normal respiratory effort and clear to auscultation bilaterally Effort and Inspection: Negative for pain with movement Auscultation: Negative for rales, rhonchi or wheezes Cardio regular rhythm GI normal to inspection, nondistended, normoactive bowel sounds and non-tender Palpation: soft Back/Spine no CVA tenderness Extremity normal to inspection General Extremety ED: Negative for edema General Extremity: Negative for edema Neuro oriented x3 Sensorium / Orientation: alert Psych Psych Narrative: Patient is anxious. She has mildly pressured speech. But there is no confusion. There is no flight of ideas. She makes good eye contact. She is very cooperative. She does have some reasonable insight. She also appears to have a very supportive here with her. Attitude: No agitated Mood & Affect: anxious; Negative for tearful Skin no rashes or lesions noted MDM MDM MDM Narrative Medical decision making narrative: Blood work shows no marked abnormalities. CBC, electrolytes, alcohol level and tox screens are negative. is negative. Chest x-ray shows no acute process. Patient is medically cleared for psychiatric evaluation and admission if needed. Crisis is seen her. They have safety plan with her. Patient does have supportive . She does not want to hurt herself. But she is having more thoughts. She has good follow-up. Plan will be to get her home at this time. If she has any worsening symptoms she should return. Lab Data Labs: Laboratory Results - last 24 hr 09/15/21 09/15/21 09/15/21 17:18 17:18 17:18 WBC 10.5 RBC 4.46 Hgb 13.3 Hct 38.8 MCV 87.0 MCH 29.8 MCHC 34.3 RDW Std Deviation 42.1 RDW Coeff of Sara 13.2 Plt Count 345 MPV 10.8 Immature Gran % (Auto) 0.300 Neut % (Auto) 67.0 Lymph % (Auto) 23.1 Wythe % (Auto) 8.9 Eos % (Auto) 0.2 Baso % (Auto) 0.5 Absolute Neuts (auto) 7.0 Absolute Lymphs (auto) 2.42 Nucleated RBC % 0 Sodium 138 Potassium 3.5 Chloride 103 Carbon Dioxide 27.0 Anion Gap 8 BUN 4 L Creatinine 0.61 Estim Creat Clear Calc 131.14 Est GFR (MDRD) Af Amer 147 Est GFR (MDRD) Non-Af 121 BUN/Creatinine Ratio 6.5 L Glucose 94 Calcium 9.1 Serum , Qual Urine Opiates Screen Urine Methadone Screen Ur Barbiturates Screen Ur Phencyclidine Scrn Ur Amphetamines Screen U Methamphetamin-MDMA U Benzodiazepines Scrn Urine Cocaine Screen U Cannabinoids Screen Ur Drug Screen Comment Ethyl Alcohol < 3.0 09/15/21 09/15/21 17:18 17:45 WBC RBC Hgb Hct MCV MCH MCHC RDW Std Deviation RDW Coeff of Sara Plt Count MPV Immature Gran % (Auto) Neut % (Auto) Lymph % (Auto) [place] % (Auto) Eos % (Auto) Baso % (Auto) Absolute Neuts (auto) Absolute Lymphs (auto) Nucleated RBC % Sodium Potassium Chloride Carbon Dioxide Anion Gap BUN Creatinine Estim Creat Clear Calc Est GFR (MDRD) Af Amer Est GFR (MDRD) Non-Af BUN/Creatinine Ratio Glucose Calcium Serum , Qual NEGATIVE Urine Opiates Screen NEGATIVE Urine Methadone Screen NEGATIVE Ur Barbiturates Screen NEGATIVE Ur Phencyclidine Scrn NEGATIVE Ur Amphetamines Screen NEGATIVE U Methamphetamin-MDMA NEGATIVE U Benzodiazepines Scrn NEGATIVE Urine Cocaine Screen NEGATIVE U Cannabinoids Screen NEGATIVE Ur Drug Screen Comment Ethyl Alcohol Radiography Diagnostic Testing: Clinical Impression(s) from Imaging Studies Chest X-Ray 09/15/21 17:05 IMPRESSION: Stable, nonacute portable x-ray examination of the chest. Electronically Signed: Umer Deshpande MD (Brooks) at 17:23 EST , Service support , Discharge Plan Triage Chief Complaint: Suicidal ED Provider: Carlos So Dx/Rx/DC Orders Clinical Impression: Anxiety and depression, Suicidal thoughts Instructions: Anxiety Disorders Tx Therapy, Recognizing Suicide Warning ..., Recognizing Suicide Warning ... Prescriptions: No Action lorazepam 0.5 mg tablet 0.5 mg PO TID PRN (Reason: anxiety) Qty: 30 RF: 0 Primary Care Provider: Mitali Rucker Referrals: Care Physician,No Primary [NON-STAFF] - Activity Restrictions/Additional Instructions: Follow-up with your psychiatrist as soon as possible. Disposition Disposition: Home, Self Care
--- NOTE | 2021-09-15 17:05 | RAD_ITS ---
STUDY: X-RAY CHEST REASON FOR EXAM: Female, 31 years old. cough TECHNIQUE: Single AP portable view of the chest. COMPARISON: None. FINDINGS: The lungs are clear and expanded. There is no demonstrated pleural abnormality. Normal size heart. Normal mediastinum and katia. Normal visualized pulmonary arteries. Normal visualized aortic arch and descending thoracic aorta. There is a dextroscoliosis of the thoracic spine. Normal visualized ribs, clavicles, and shoulders. There is no demonstrated abnormality of the visualized soft tissue structures of the upper abdomen. RAD/Chest 1 View (Portable) IMPRESSION: Stable, nonacute portable x-ray examination of the chest. Electronically Signed: Umer Deshpande MD (Brooks) at 17:23 EST , Service support ,
[2021-09-15 17:30] LABS: Absolute Lymphocyte Count 2.42 X10^3/uL (0.83-4.51); Basophil# 0.05 X10^3/uL; Basophil% 0.5 % (0-1); Eosinophil# 0.02 X10^3/uL; Eosinophils% 0.2 % (0-5); Hematocrit 38.8 % (37-47); Hemoglobin 13.3 g/dL (12.0-15.0); Lymphocyte # 2.42 X10^3/ul (0.83-4.51); Lymphocyte % 23.1 % (19-41); Mean Corp Hgb Conc 34.3 g/dL (32-36); Mean Corpuscular Hgb 29.8 pg (27.0-32.0); Mean Platelet Vol. 10.8 fl (6.2-12.0); Monocyte# 0.93 X10^3/uL; Monocyte% 8.9 % (0-10); NRBC Flagged by Analyzer 0 % (0-5); Neutrophil # 7.03 X10^3/uL (2.7-7.7); Platelet Count 345 K/mm3 (150-450); RBC Distribution Width CV 13.2 % (11.6-14.6); RBC Distribution Width SD 42.1 fl (35.1-43.9); Red Blood Count 4.46 M/mm3 (4.2-5.4); White Blood Count 10.5 K/mm3 (4.4-11.0)
[2021-09-15 18:00] LABS: Internal QC Validated? YES +Cl - CLEAR BKGD; Pregnancy, Serum, hCG Quali. NEGATIVE Negative
[2021-09-15 18:03] LABS: Alcohol, Blood (Medical)-Serum < 3.0 mg/dL
[2021-09-15 18:23] LABS: Anion Gap 8 (5-15); BUN 4 mg/dL (7-18); BUN/Creat Ratio 6.5 RATIO (10-20); Calcium,Total 9.1 mg/dL (8.5-10.1); Chloride 103 mmol/L (98-107); Creatinine, Serum 0.61 mg/dL (0.55-1.02); EST Glomerular Filtration Rate 121 mL/min (>60); Est Glom Filt Rate - Afr Amer 147 mL/min (>60); Estimated Creatinine Clearance 131.14 ml/min; Glucose 94 mg/dL (74-106); Potassium 3.5 mmol/L (3.5-5.1); Sodium Level 138 mmol/L (136-145)
[2021-09-15 18:23] LABS: Amphetamine Urine VISTA NEGATIVE (<1000 ng/mL); Barbiturate Urine VISTA NEGATIVE (< 200 ng/mL); Benzodiazepine Urine VISTA NEGATIVE (< 200 ng/mL); Cocaine Urine VISTA NEGATIVE (< 300 ng/mL); Ecstacy Urine VISTA NEGATIVE (< 500 ng/mL); Methadone Urine VISTA NEGATIVE (< 300 ng/mL); PCP Urine VISTA NEGATIVE (< 25 ng/mL); THC Urine VISTA NEGATIVE (< 50 ng/mL); Vista UDS pH Range 6
--- NOTE | 2021-09-15 18:27 | NURSING ---
CALLED CRISIS AT [phone]
[2021-09-15] MEDS: guaiFENesin 1,200 MG Tablet 1200 MG PO (18:41)
[2021-09-15 19:00] VITALS: RESP 16
--- NOTE | 2021-09-15 21:12 | ED.RN ---
crisis safety planing patient. sitter discontinuned. Dr So aware.
[2021-09-15 21:42] VITALS: RESP 18
--- NOTE | 2021-09-15 21:44 | ED.RN ---
pt provided a copy of safety plan. discussed sleeping aids and routine. discharged home
== END 2021-09-15 21:45 | disposition home or self-care (01) ==
PROVIDERS: Emergency Provider Emergency Medicine; PCP Internal Medicine
DX: F41.9 Anxiety disorder, unspecified (principal); F32.A Depression, unspecified; R45.851 Suicidal ideations; Z79.899 Other long term (current) drug therapy
CPT/HCPCS: 36415; 71045; 80048; 80307; 82077; 84703; 85025; 87426; 99282

== ENCOUNTER 2021-09-18 15:06 | Outpatient (CLI) | payer OTHER, SELFPAY ==
[2021-09-18 17:46] LABS: T4 Free Direct 1.06 ng/dL (0.76-1.46); Thyroid Stim Hormone (TSH) 0.43 uIU/mL (0.358-3.74)
== END 2021-09-18 23:59 | disposition short-term general hospital (02) ==
LOC: BIMLAB 15:07
PROVIDERS: PCP Internal Medicine; Referring Provider Internal Medicine; Visit Provider Internal Medicine
DX: F41.1 Generalized anxiety disorder (principal)
CPT/HCPCS: 36415; 84439; 84443

== ENCOUNTER → 2023-05-05 | Outpatient (CLI) | payer BC, SELFPAY ==
[2023-05-05 10:53] LABS: Absolute Lymphocyte Count 1.98 X10^3/uL (0.83-4.51); Absolute Neutrophil Count 4.4 X10^3/uL (2.0-7.7); Basophil# 0.04 X10^3/uL; Basophil% 0.6 % (0-1); Eosinophil# 0.05 X10^3/uL; Eosinophils% 0.7 % (0-5); Hematocrit 36.3 % (37-47); Hemoglobin 11.6 g/dL (12.0-15.0); Lymphocyte # 1.98 X10^3/ul (0.83-4.51); Lymphocyte % 27.9 % (19-41); Mean Corpuscular Hgb 28.4 pg (27.0-32.0); Mean Platelet Vol. 10.5 fl (6.2-12.0); Monocyte# 0.65 X10^3/uL; Monocyte% 9.2 % (0-10); NRBC Flagged by Analyzer 0 % (0-5); Neutrophil # 4.36 X10^3/uL (2.7-7.7); Neutrophil % 61.3 % (47-70); Platelet Count 307 K/mm3 (150-450); RBC Distribution Width CV 14.1 % (11.6-14.6); RBC Distribution Width SD 45.6 fl (35.1-43.9); Red Blood Count 4.08 M/mm3 (4.2-5.4); White Blood Count 7.1 K/mm3 (4.4-11.0)
[2023-05-05 11:51] LABS: HIV - WCH Non-Reactive (Nonreactive); Hepatitis B Surface Antigen Non-Reactive (Nonreactive); Hepatitis C Antibody Non-Reactive (Nonreactive); Rubella IgG Reactive (Nonreactive); Syphilis Antibodies Non-reactive
[2023-05-07 21:07] LABS: Chlamydia By Nucleic Acid AMP Negative (Negative); Gonococcus By Nucleic Acid AMP Negative (Negative)
== END | disposition home or self-care (01) ==
PROVIDERS: PCP Internal Medicine; Referring Provider Obstetrics & Gynecology; Visit Provider Obstetrics & Gynecology
DX: Z34.90 Encounter for supervision of normal pregnancy, unspecified, unspecified trimester (principal)
CPT/HCPCS: 36415; 85025; 86703; 86762; 86780; 86803; 86850; 86900; 86901; 87086; 87340; 87491; 87591

== ENCOUNTER → 2023-09-22 | Outpatient (CLI) | payer BC, SELFPAY ==
--- OUTSIDE RECORDS SUMMARY | 2023-09-22 07:31 | XMS RPT_ITS | CCD ---
Author Name Unknown Address [address] [place] [address] Organization [facility] Care Team Providers Care Public Transit Bus Driver Name Role Phone YULI JETER Unavailable Unavailable MYCHAL CAAL Unavailable Unavailyesenia e NO PRIMARY CAREMD Unavailable Unavailable Encounters Encounter Date Encounter Type Care Provider Facility Start: 03-05-2018 Ambulatory YULI JETER [facility] Payers Date Payer Category Payer Policy ID Private Health Insurance [id number] Summary Purpose Family History No Family History Records Found Advance Directives No Advanced Directives Records Found Additional Source Comments INFORMATION SOURCE (unrecogn ized section and content) FOR RECORDS PERTAINING TO PATIENTS WHO ARE OR HAVE BEEN ENROLLED IN A CHEMICAL DEPENDENCY/SUBSTANCEABUSE PROGRAM, SOME INFORMATION MAY BE OMITTED. This clinical summary was aggregated from multiple sources. Caution should be exercised in using it in the provision of clinical care. This summary normalizes information from multiple sources, and as a consequence, information in this document may materially change the coding, format and clinical context of patient data. In addition, data may be omitted in some cases. CLINICAL DECISIONS SHOULD BE BASED ON THE PRIMARY CLINICAL RECORDS. [employer] provides no warranty or guarantee of the accuracy or completeness of information in this document.
[2023-09-22 08:00] LABS: Absolute Lymphocyte Count 2.08 X10^3/uL (0.83-4.51); Absolute Neutrophil Count 5.7 X10^3/uL (2.0-7.7); Basophil# 0.02 X10^3/uL; Basophil% 0.2 % (0-1); Eosinophil# 0.07 X10^3/uL; Eosinophils% 0.8 % (0-5); Hematocrit 27.4 % (37-47); Hemoglobin 8.4 g/dL (12.0-15.0); Lymphocyte # 2.08 X10^3/ul (0.83-4.51); Lymphocyte % 24.5 % (19-41); Mean Corp Hgb Conc 30.7 g/dL (32-36); Mean Corpuscular Hgb 26.1 pg (27.0-32.0); Mean Corpuscular Volume 85.1 fL (81-99); Mean Platelet Vol. 10.2 fl (6.2-12.0); Monocyte# 0.58 X10^3/uL; Monocyte% 6.8 % (0-10); NRBC Flagged by Analyzer 0 % (0-5); Neutrophil # 5.66 X10^3/uL (2.7-7.7); Neutrophil % 66.8 % (47-70); Platelet Count 290 K/mm3 (150-450); RBC Distribution Width CV 13.2 % (11.6-14.6); RBC Distribution Width SD 40.7 fl (35.1-43.9); Red Blood Count 3.22 M/mm3 (4.2-5.4); White Blood Count 8.5 K/mm3 (4.4-11.0)
[2023-09-22 08:09] LABS: Glucose Challenge Gest 1H 50g 184 mg/dL (70-140)
[2023-09-22 09:10] LABS: HIV - WCH Non-Reactive (Nonreactive); Syphilis Antibodies Non-reactive
== END | disposition home or self-care (01) ==
LOC: PAVLAB 07:29
PROVIDERS: PCP Internal Medicine; Referring Provider Registered Nurse; Visit Provider Registered Nurse
DX: Z34.90 Encounter for supervision of normal pregnancy, unspecified, unspecified trimester (principal)
CPT/HCPCS: 36415; 82950; 85025; 86703; 86780; 86850; 86900; 86901

== ENCOUNTER 2023-10-06 08:01 | Outpatient (RCR) | payer BC, SELFPAY | END 2023-10-15 23:59 | LOC: DC 08:01 | PROVIDERS: PCP Internal Medicine; Referring Provider Nurse Practitioner Women's Health; Visit Provider Nurse Practitioner Women's Health | DX: O24.419 Gestational diabetes mellitus in pregnancy, unspecified control (principal); Z71.3 Dietary counseling and surveillance | CPT/HCPCS: 97802; 97803 ==

== ENCOUNTER → 2023-11-07 | Outpatient (CLI) | payer BC, SELFPAY ==
[2023-11-07 10:54] LABS: Absolute Lymphocyte Count 2.02 X10^3/uL (0.83-4.51); Absolute Neutrophil Count 5.3 X10^3/uL (2.0-7.7); Basophil# 0.02 X10^3/uL; Basophil% 0.2 % (0-1); Eosinophil# 0.06 X10^3/uL; Eosinophils% 0.7 % (0-5); Hematocrit 33.5 % (37-47); Hemoglobin 10.5 g/dL (12.0-15.0); Lymphocyte # 2.02 X10^3/ul (0.83-4.51); Lymphocyte % 24.5 % (19-41); Mean Corp Hgb Conc 31.3 g/dL (32-36); Mean Corpuscular Hgb 26.5 pg (27.0-32.0); Mean Corpuscular Volume 84.6 fL (81-99); Mean Platelet Vol. 10.5 fl (6.2-12.0); Monocyte# 0.75 X10^3/uL; Monocyte% 9.1 % (0-10); NRBC Flagged by Analyzer 0 % (0-5); Neutrophil # 5.34 X10^3/uL (2.7-7.7); Neutrophil % 64.7 % (47-70); Platelet Count 254 K/mm3 (150-450); RBC Distribution Width CV 16.6 % (11.6-14.6); Red Blood Count 3.96 M/mm3 (4.2-5.4); White Blood Count 8.3 K/mm3 (4.4-11.0)
--- OUTSIDE RECORDS SUMMARY | 2023-11-07 11:02 | XMS RPT_ITS | CCD ---
Author Name Unknown Address [address] [place] [address] Organization [facility] Care Team Providers Care Hotel Attendant Name Role Phone YULI JETER Unavailable Unavailable MYCHAL CAAL Unavailable Unavailyesenia e NO PRIMARY CAREMD Unavailable Unavailable Encounters Encounter Date Encounter Type Care Provider Facility Start: 03-05-2018 Ambulatory YULI JETER [facility] Payers Date Payer Category Payer Policy ID Private Health Insurance [id number] Summary Purpose Family History No Family History [...] BE BASED ON THE PRIMARY CLINICAL RECORDS. [employer] provides no warranty or guarantee of the accuracy or completeness of information in this document.
[2023-11-07 11:34] LABS: Ferritin 6 ng/mL (8-252); Iron 42 ug/dL (50-170); Iron Binding Capacity,Total 614 ug/dL (250-450)
== END | disposition home or self-care (01) ==
LOC: PAVLAB 10:39
PROVIDERS: PCP Internal Medicine; Referring Provider Nurse Practitioner Women's Health; Visit Provider Nurse Practitioner Women's Health
DX: O99.019 Anemia complicating pregnancy, unspecified trimester (principal); Z3A.00 Weeks of gestation of pregnancy not specified
CPT/HCPCS: 36415; 82728; 83540; 83550; 85025

== ENCOUNTER → 2023-11-12 | Outpatient (CLI) | payer BC, SELFPAY ==
--- NOTE | 2023-11-12 14:17 | US_ITS ---
STUDY: SECOND AND THIRD TRIMESTER OBSTETRICAL ULTRASOUND - LIMITED REASON FOR EXAM: Female, 33 years old Growth at 36 weeks LMP: PRIOR ULTRASOUND: None. TECHNIQUE: Transabdominal TECHNICAL QUALITY: Adequate. FINDINGS: There is a single intrauterine fetus. The fetus is in a cephalic presentation. There is demonstrated cardiac activity with a heart rate of 136 bpm. There is a normal amniotic fluid volume. The largest amniotic fluid pocket measures 7.8 cm. The amniotic fluid index (KASIA) is 13.71 cm. The placenta is posterior There are Grade 1 placental changes. The cervix was not visualized BIOMETRY: BPD: 9.29 cm: 37 weeks, 5 days HC: 32.83 cm: 37 weeks, 2 days AC: 33.44 cm: 37 weeks, 2 days FL: 7.04 cm: 36 weeks, 0 days Age by LMP: 35 weeks, 6 days. LÁZARO by LMP: December 11, 2023. age by current US: 36 weeks, 5 days. LÁZARO by current US: December 05, 2023. Estimated weight: 3152 grams, +/- 473 grams, 84 percentile. US/OB Limited With Biometrics IMPRESSION: Viable intrauterine gestation approximately 36-37 gestational age. No significant] abnormality Electronically Signed: Matias Olivares MD at 22:12 EST ,
--- OUTSIDE RECORDS SUMMARY | 2023-11-12 23:34 | XMS RPT_ITS | CCD ---
Author Name Unknown Address [address] [place] [address] Organization [facility] Care Team Providers Care Heat Curer Name Role Phone YULI JETER Unavailable Unavailable MYCHAL CAAL Unavailable Unavailyesenia e NO PRIMARY CAREMD Unavailable Unavailable Encounters Encounter Date Encounter Type Care Provider Facility Start: 03-05-2018 Ambulatory YULI JETER [facility] Payers Date Payer Category Payer Policy ID Private Health Insurance [id number] Summary Purpose Family History No Family History [...] BE BASED ON THE PRIMARY CLINICAL RECORDS. [employer] provides no warranty or guarantee of the accuracy or completeness of information in this document.
== END | disposition home or self-care (01) ==
LOC: US 14:17
PROVIDERS: PCP Internal Medicine; Referring Provider Obstetrics & Gynecology; Visit Provider Obstetrics & Gynecology
DX: O24.410 Gestational diabetes mellitus in pregnancy, diet controlled (principal); Z3A.00 Weeks of gestation of pregnancy not specified
CPT/HCPCS: 76816

== ENCOUNTER → 2023-11-19 | Outpatient (CLI) | payer BC, SELFPAY | END | disposition home or self-care (01) | LOC: LABSPEC 10:21 | PROVIDERS: PCP Internal Medicine; Referring Provider Obstetrics & Gynecology; Visit Provider Obstetrics & Gynecology | DX: O09.90 Supervision of high risk pregnancy, unspecified, unspecified trimester (principal); Z3A.00 Weeks of gestation of pregnancy not specified | CPT/HCPCS: 87081 ==

== ENCOUNTER 2023-12-11 07:05 | Inpatient (IN) | payer BC, SELFPAY ==
[2023-12-11] VITALS (35 sets, daily range): BP systolic 113–162; BP diastolic 56–88; PULSE 83–121; RESP 16–18; TEMP 36.2–36.7; O2SAT 87–100; BMI 29.7
--- NOTE | 2023-12-11 07:18 | HP.PCM.OB_ITS ---
HPI - General General Date of Admission: 12/11/23 HPI Narrative HALLEY WELLS, is a 33 F who presents for IOL secondary to diabetes. she denies any bleeding, lof admits good fm and no regular ctx. Maternal Data Information LÁZARO Calculator Estimated Delivery Date Method Current WG Current Estimate 12/11/23 LMP (Certain) 40w 0d Other Estimates 12/10/23 Ultrasound #1 40w 1d PFSH PFSH Medical History Allergic reaction Anxiety Anxiety and depression Depression Encounter for screening for COVID-19 Fatigue Generalized anxiety disorder Headache Obsessional thoughts Panic attack Vertebral artery dissection Home Medications multivitamin no.47-iron fum 27 mg-folate no.1 1 mg-dha 300 mg capsule (PNV-DHA) cap PO 04/22/23 [History Last Taken Unknown] promethazine 12.5 mg tablet 12.5 mg PO Q6H PRN nausea and vomiting #60 tabs 04/22/23 [Rx Last Taken Unknown] mecobalamin (vitamin B12) 2,500 mcg chewable tablet mcg PO PRN 05/05/23 [History Last Taken Unknown] blood sugar diagnostic (Blood Glucose Test strips) #120 ea 09/23/23 [Rx Last Taken Unknown] blood-glucose meter #1 ea 09/23/23 [Rx Last Taken Unknown] lancets #200 ea 09/23/23 [Rx Last Taken Unknown] Allergy/AdvReac Type Severity Reaction Status Date / Time No Known Allergies Allergy Verified 12/05/23 10:56 Family History Mother Parkinson disease Grandfather Leukemia Surgical History H/O dilation and curettage [place] teeth extracted Social History adopted: No household members: spouse and children number of children: 1 current occupational status: employed 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 current occupational exposures/hazards: No pets and animals: No history of recent travel: Yes ([place], [place]) out of state: Yes out of country: No sexually active: Yes Smoking Status: Never smoker alcohol intake: never substance use type: does not use well-balanced diet: daily or most days caffeine: Yes Type: tea Number of servings: 1 eating out: 1-3 times/week during the past year weight has: remained stable what type of physical activity do you participate in: walking and weight training frequency: 3-4 times per week duration: 30-45 minutes/day simone/presybeterian: Catholic seatbelt use: always do you feel safe at home: Yes additional social history: Spouse Tim History 3 Elective abortions Hx Para 1 Spontaneous abortions 1 Hx # Term Pregnancies Ectopic pregnancies Hx # Pregnancies Multiple births # of living children 1 Past Pregnancies Del. Date Name GA/Weeks Outcome Route Bth Weight Gen Labor Lgth Anesthesia Del Locatn Provider FOB 09/05/18 Ember 39 live - full term 7lbs 2oz Female 12 h ours epidural [facility] Dr. Castro Delivery Date: 09/05/18 Last Updated by: Emmy Lewis Anemic during . No issues during delivery. Visit Details Expected Delivery Route/Plan possible VAVDLabor Preferences- CB/BF classes: no labor support person: Meño labor intervention preferences: [] pain management options preferred: epidural cut cord/dad catch: yes : yes PP control planned: discussed discussed possible routes of delivery and associated risks: [] special requests: [] Plans Covid status: discussed Flu vaccine: discussed Tdap vaccine: declined Rhogam: na LARC form signed: yes movement and labor precautions reviewed. Problem list reviewed and updated with the most current plan of care details and appropriate orders placed. Relevant counseling for the gestational age provided. Continue routine care and follow up unless otherwise noted in visit notes/problem list details OB Flowsheet Initial Weight: 169 lb Date -?-?-?-?-?-?-?-?-?-?-?-?- EGA Weight BP Urine Prot -?-?-?-?-?-?-?-?-?-?-?-?- Glucose FHR FuHt Pres Dilation -?-?-?-?-?-?-?-?-?-?-?-?- Effaced St Visit Note 05/05/23 -?-?-?-?-?-?-?-?-?-?-?-?- 8w 4d 169 lb (+0 oz) 130/81 -?-?-?-?-?-?-?-?-?-?-?-?- 160 -?-?-?-?-?-?-?-?-?-?-?-?- SM- CRL 1.9 cm c ons with LMP 06/06/23 -?-?-?-?-?-?-?-?-?-?-?-?- 13w 1d 173 lb (+4 lb) 128/80 Negative -?-?-?-?-?-?-?-?-?-?-?-?- Negative 163 -?-?-?-?-?-?-?-?-?-?-?-?- JV- no lof, vagi nal bleeding, or cramping. CRL today consistent with established GA. undecided about NIPT, wants to decide at anatomy scan. 07/02/23 -?-?-?-?-?-?-?-?-?-?-?-?- 16w 6d 176 lb 4 oz (+7 lb 4 oz) 126/78 Negative -?-?-?-?-?-?-?-?-?-?-?-?- Negative 161 -?-?-?-?-?-?-?-?-?-?-?-?- MH-No VB, LOF. N o flutters yet. Nausea improved. Anatomy US 07/21. Will confirm MFM will do consult for VAD 07/30/23 -?-?-?-?-?-?-?-?-?-?-?-?- 20w 6d 180 lb 2 oz (+11 lb 2 oz) 127/83 Negative -?-?-?-?-?-?-?-?-?-?-?-?- Negative 151 -?-?-?-?-?-?-?-?-?-?-?-?- JV- no complaint s, anatomy us reviewed. no new news from MFM about VAD. plan to labor down. 08/25/23 -?-?-?-?-?-?-?-?-?-?-?-?- 24w 4d 183 lb 6 oz (+14 lb 6 oz) 119/74 Negative -?-?-?-?-?-?-?-?-?-?-?-?- Negative 138 24 -?-?-?-?-?-?-?-?-?-?-?-?- LC- no vb/ctx/lo f. good fm. 28 week labs ordered. no concerns. 09/22/23 -?-?-?-?-?-?-?-?-?-?-?-?- 28w 4d 187 lb 8 oz (+18 lb 8 oz) 112/64 Negative -?-?-?-?-?-?-?-?-?-?-?-?- Negative 143 28 -?-?-?-?-?-?-?-?-?-?-?-?- MH-No VB, LOF. G ood Fm. Discussed add FE, take PNV daily. GDM:qid testing, dietitian. [facility] 10/07/23 -?-?-?-?-?-?-?-?-?-?-?-?- 30w 5d 188 lb 6 oz (+19 lb 6 oz) 123/75 Negative -?-?-?-?-?-?-?-?-?-?-?-?- Negative 135 30 -?-?-?-?-?-?-?-?-?-?-?-?- KW-no vb/lof/ctx . good fm. BS reviewed and nl range. 10/24/23 -?-?-?-?-?-?-?-?-?-?-?-?- 33w 1d 188 lb (+19 lb) 134/83 Negative -?-?-?-?-?-?-?-?-?-?-?-?- Negative 130 33 Breech -?-?-?-?-?-?-?-?-?-?-?-?- SM- no vb lof go od fm no regular ctx reviewed BS 11/07/23 -?-?-?-?-?-?-?-?-?-?-?-?- 35w 1d 189 lb (+20 lb) 121/83 Negative -?-?-?-?-?-?-?-?-?-?-?-?- Negative 140 35 Cephalic -?-?-?-?-?-?-?-?-?-?-?-?- SM- BS controlle d, head down now on palpation, growth US ordered. some contractions, anemia improving. 11/19/23 -?-?-?-?-?-?-?-?-?-?-?-?- 36w 6d 190 lb 2 oz (+21 lb 2 oz) 130/78 Negative -?-?--?-?-?-?-?-?-?-?-?-?- Negative 154 36 Cephalic 1 .2 -?-?-?-?-?-?-?-?-?-?-?-?- 60 -3 JV- GBS co llected. no lof, vaginal bleeding, or dec fm. 11/28/23 -?-?-?-?-?-?-?-?-?-?-?-?- 38w 1d 189 lb (+20 lb) 124/83 Negative -?-?-?-?-?-?-?-?-?-?-?-?- Negative 150 37 Cephalic 3 -?-?-?-?--?-?-?-?-?-?-?-?- 60 Sm- no v b lof good fm no regular ctx 12/05/23 -?-?-?-?-?-?-?-?-?-?-?-?- 39w 1d 190 lb (+21 lb) 125/79 Negative -?-?-?-?-?-?-?-?-?-?-?-?- Negative 140 38 Cephalic 3 -?-?-?-?-?-?-?-?-?-?-?-?- 60 -2 SM- no vb lof good fm no regular ctx BS controlled scheduled for iol t vivianaay NST FHR Rate Baby A Baseline: 130 Variability:: Moderate Accelerations:: 15 x 15 Decelerations:: None NST Reactive:: Yes FHR Category:: Category I Uterine Activity:: irregular ROS Constitutional Constitutional: Reports systems reviewed and no addt'l complaints, except as documented Eyes Eyes: Denies change in vision ENT HEENT: Reports systems reviewed and no addt'l complaints, except as documented; Denies headache(s) Cardiovascular Cardiovascular: Reports systems reviewed and no addt'l complaints, except as documented; Denies chest pain or dyspnea Respiratory/Chest Respiratory/Chest: Reports systems reviewed and no addt'l complaints, except as documented Gastrointestinal Gastrointestinal: Reports systems reviewed and no addt'l complaints, except as documented; Denies abdominal pain Genitourinary Genitourinary: Reports systems reviewed and no addt'l complaints, except as documented, contractions Details: present (irregular) and movement Details: present; Denies dysuria or genital lesions Musculoskeletal Musculoskeletal: Reports systems reviewed and no addt'l complaints, except as documented Neurologic Neurologic: Reports systems reviewed and no addt'l complaints, except as documented Endocrine Endocrinology: Reports systems reviewed and no addt'l complaints, except as documented Physical Exam Const alert, oriented x3, no apparent distress and healthy appearing HEENT normocephalic and moist oral mucous membranes Head and Scalp: atraumatic Neck full ROM, no lymphadenopathy, supple and thyroid normal General: trachea midline Lymph Lymphatic: no lymphadenopathy noted Chest inspection of chest normal Resp normal respiratory effort Cardio regular rate GI normal to inspection, nondistended, normoactive bowel sounds, soft to palpation and non-tender Inspection: gravid external exam normal Manual OB Exam: estimated gestational size appropriate, presentation cephalic, dilated, effaced and station Extremity normal to inspection General Extremity: Negative for edema Skin no rashes or lesions noted Neuro no focal motor deficits and deep tendon reflexes 2+ bilaterally Motor Exam: strength 5/5 throughout and clonus absent Psych mental status grossly normal Labs Labs Labs: Blood Type A POSITIVE Antibody Screen NEGATIVE Hct 33.5 % (37-47) L Hgb 10.5 g/dL (12.0-15.0) L Obstetrics Ultrasound Syphilis Total Ab Non-reactive Rubella IgG Antibody Reactive (Nonreactive) Hep Bs Antigen Non-Reactive (Nonreactive) Hepatitis C Antibody Non-Reactive (Nonreactive) Chlamydia DNA (FAITH) Negative (Negative) N.gonorrhoeae DNA (FAITH) Negative (Negative) HIV 1&2 Antibody Non-Reactive (Nonreactive) Glucose 1 Hr 50 gm 184 mg/dL (70-140) H Rhogam given: No Miscellaneous Test Assessment & Plan (1) Vertebral artery dissection: COMMENT: DOC ONLY DELIVERY previously recommended to limit valsalva, consider vacuum, had VAVD first delivery. (2) Generalized anxiety disorder: COMMENT: controlled. (3) : QUALIFIERS: Weeks of gestation: 39 weeks Qualified Code(s): Z3A.39 - 39 weeks gestation of COMMENT: GBS Negative, declined genetic & carrier testing, nl anatomy (4) Supervision of high-risk : QUALIFIERS: Trimester: third trimester Qualified Code(s): O09.93 - Supervision of high risk , unspecified, third trimester COMMENT: PRR , LÁZARO 12/10/22, boy Vinay Riojas, Tim GBS neg (5) Anemia affecting : QUALIFIERS: Trimester: third trimester Qualified Code(s): O99.013 - Anemia complicating , third trimester COMMENT: Not taking PNV consistently. Will start and also add FE altenate time. Rpt CBC next visit (6) Gestational diabetes mellitus (GDM): QUALIFIERS: Gestational diabetes mellitus control: diet-controlled Trimester: third trimester Qualified Code(s): O24.410 - Gestational diabetes mellitus in , diet controlled COMMENT: GCT 184: QID testing, dietitian referral. Growth US 36wk. well controlled (7) Encounter for induction of labor: PLAN: Plan Patient presents IOL, plan management for with pitocin/AROM. Pain management: plans epidural. GBS negative. Management of any complications: diabetes- monitor bs in labor, may need vacuum at delivery I have reviewed the [facility] and made any clinically relevant updates.
[2023-12-11 08:04] LABS: Absolute Lymphocyte Count 1.91 X10^3/uL (0.83-4.51); Absolute Neutrophil Count 5.6 X10^3/uL (2.0-7.7); Basophil# 0.04 X10^3/uL; Basophil% 0.5 % (0-1); Eosinophil# 0.04 X10^3/uL; Eosinophils% 0.5 % (0-5); Hematocrit 33.5 % (37-47); Hemoglobin 10.6 g/dL (12.0-15.0); Lymphocyte # 1.91 X10^3/ul (0.83-4.51); Mean Corp Hgb Conc 31.6 g/dL (32-36); Mean Corpuscular Hgb 26.8 pg (27.0-32.0); Mean Corpuscular Volume 84.6 fL (81-99); Mean Platelet Vol. 11.8 fl (6.2-12.0); Monocyte% 7.2 % (0-10); NRBC Flagged by Analyzer 0 % (0-5); Neutrophil # 5.64 X10^3/uL (2.7-7.7); Neutrophil % 68.1 % (47-70); Platelet Count 247 K/mm3 (150-450); RBC Distribution Width CV 16.6 % (11.6-14.6); RBC Distribution Width SD 51.8 fl (35.1-43.9); Red Blood Count 3.96 M/mm3 (4.2-5.4); White Blood Count 8.3 K/mm3 (4.4-11.0)
[2023-12-11] MEDS: Lactated Ringers 1,000 ML 50 ML IV (08:27)
[2023-12-11] MEDS: Oxytocin 15 Units/NS 250ml 15 UNITS/250 ML IV.SOLN 2 UNITS IV (08:28)
[2023-12-11 08:37] LABS: Syphilis Antibodies Non-reactive
[2023-12-11 10:03] LABS: Bedside Glucose 79 mg/dL (74-106)
[2023-12-11 10:58] LABS: Bedside Glucose 76 mg/dL (74-106)
--- NOTE | 2023-12-11 13:01 | PCM.PN.BLA ---
Progress Note current tracing: FHT: 140 Moderate variability reactive no decelerations category I tracing [place]: q2-3 Contractions reviewed tracing abnormalities since last note: no significant A/P: arom clear
[2023-12-11] MEDS: Ondansetron 4 MG/2 ML Vial IV (14:39)
[2023-12-11] MEDS: LACTATED RINGERS 500 ML 999 ML IV (14:46)
[2023-12-11 14:53] LABS: Bedside Glucose 76 mg/dL (74-106)
[2023-12-11] MEDS: fentaNYL-bupivacaine (epidural) 100 ML BAG EPIDURAL (15:22)
[2023-12-11] MEDS: Oxytocin 15 Units/NS 250ml 15 UNITS/250 ML IV.SOLN 83 UNITS IV (17:14)
--- NOTE | 2023-12-11 17:20 | OP.PCM_ITS ---
Assessment & Plan (1) Encounter for induction of labor: (2) Gestational diabetes mellitus (GDM): QUALIFIERS: Gestational diabetes mellitus control: diet-controlled Trimester: third trimester Qualified Code(s): O24.410 - Gestational diabetes mellitus in , diet controlled COMMENT: GCT 184: QID testing, dietitian referral. Growth US 36wk. well controlled (3) Supervision of high-risk : QUALIFIERS: Trimester: third trimester Qualified Code(s): O09.93 - Supervision of high risk , unspecified, third trimester COMMENT: PRR , LÁZARO 12/10/22, boy Vinay PC Mihirer, Tim GBS neg (4) : QUALIFIERS: Weeks of gestation: 39 weeks Qualified Code(s): Z3A.39 - 39 weeks gestation of COMMENT: GBS Negative, declined genetic & carrier testing, nl anatomy (5) Anemia affecting : QUALIFIERS: Trimester: third trimester Qualified Code(s): O99.013 - Anemia complicating , third trimester COMMENT: Not taking PNV consistently. Will start and also add FE altenate time. Rpt CBC next visit (6) Generalized anxiety disorder: COMMENT: controlled. (7) Vertebral artery dissection: COMMENT: DOC ONLY DELIVERY previously recommended to limit valsalva, consider vacuum, had VAVD first delivery. (8) Vaginal delivery: COMMENT: SM IOL GDM richar Mclean Maternal Data Information LÁZARO Calculator Estimated Delivery Date Method Current WG Current Estimate 12/11/23 LMP (Certain) 40w 0d Other Estimates 12/10/23 Ultrasound #1 40w 1d Vaginal Delivery Operative Information Date of Procedure: 12/11/23 Pre-Operative Diagnosis: see a/p diagnoses Post-Operative Diagnosis: same Surgery / Procedure Performed: Spontaneous Vaginal Delivery Type of Anesthesia: Epidural Special Medications: none Estimated Blood Loss: 200 Fluids Replaced: crystalloid Findings Description of Procedure: Patient began pushing and delivered the head in the CHESTER presentation. The head was delivered atraumatically and a loose nuchal cord ?1 was identified and the delivered through without complication. The anterior and posterior shoulders delivered without complication followed by the rest of the infant and the was placed on the maternal abdomen. Delayed cord clamping was employed for approximately 60 seconds. Cord was clamped and cut and gentle traction was applied to the cord and the placenta delivered spontaneously immed iately following it was noted to be intact with three-vessel cord. The perineum and vagina were inspected and noted to have no laceration. EBL was 200 cc. Patient and infant tolerated delivery well. Amniotic Fluid Description: Clear Placental Delivery Description: Spontaneous Placenta Disposition: [facility] Cord Vessel Description: 3 Vessels Cord Entanglement: Around neck x 1, loose Delayed Cord Clamping: Yes Post Vaginal Delivery Medications Given After Delivery: IV Pitocin Episiotomy Description: None Complication Complications: None Procedures Urinary/Genital [id number]: [id number] Vaginal Delivery [facility]
[2023-12-11 17:23] LABS: Bedside Glucose 126 mg/dL (74-106)
[2023-12-11 17:23] LABS: Bedside Glucose 92 mg/dL (74-106)
--- NOTE | 2023-12-11 17:29 | DCINST_ITS ---
Discharge Instructions Diet Discharge Diet: No restrictions Activity Discharge Activity: Return to Normal Activity, May Not Drive (while taking narcotic pain medications.) and May Shower May resume sexual activity in: 4-6 weeks Dressing / Incision Call your doctor if your incision/area has: Continuous Slow Oozing, Sudden Increased Bleeding, Increased Pain/ Swelling, Increased Redness and Foul Smelling Discharge Follow Up Care Please Follow Up With: Flower Castro MD When: Call [phone] to make an appointment with your doctor in 6 weeks. If you had elevated blood pressure or 4th degree laceration, you will need to be seen in 2 weeks. Test Results: Test results from this visit will be discussed in further detail at your follow- up appointment, if applicable. Discharge Plan Admission Admit Date/Time: 12/11/23 07:05 Attending Provider: Flower Castro Primary Care Provider: Mitali Rucker Discharge Orders/Prescriptions Prescriptions: No Action PNV-DHA 27 mg iron-1 mg -300 mg capsule PO (DME) Blood Glucose Test Strip See Rx Instructions .Route Qty: 120 5RF Rx Instructions: As directed- fasting & 2 hr post meals (DME) blood-glucose meter Misc See Rx Instructions .MEDSUPPLY Qty: 1 0RF Rx Instructions: As directed- Test fasting and 2 hours after meals (DME) lancets Misc See Rx Instructions .MEDSUPPLY Qty: 200 5RF Rx Instructions: As directed- fasting & 2 HR Post meals Referrals / Follow Up: Mitali Rucker MD [Primary Care Provider] - Disposition Disposition (needs filled in before D/C Order can be placed): Home, Self Care
[2023-12-12 04:40] VITALS: BP 122/77; PULSE 99; RESP 16; TEMP 36.3; O2SAT 98
[2023-12-12 04:48] VITALS: BP 122/77; PULSE 95; O2SAT 98
--- NOTE | 2023-12-12 05:17 | PN.OBGYN_ITS ---
Subjective Subjective Patient doing well without complaints. Tolerating PO. Ambulating and voiding without difficulty. infant feeding well. Denies chest pain, shortness of breath, calf pain/swelling, fevers, chills, lightheadedness. Objective Data Objective Data Vital Signs: Vital Signs Temp Pulse Resp BP Pulse Ox O2 Del Method 97.7 F L 95 16 122/77 H 98 Room Air 12/11/23 23:48 12/12/23 04:48 12/11/23 23:48 12/12/23 04:48 12/12/23 04:48 12/11/23 23:48 Oxygen Delivery Method Room Air Weight: 190 lb Body Mass Index (BMI) 29.7 Intake & Output: Intake and Output for Last 24 Hours 12/10/23 12/11/23 12/12/23 23:59 23:59 23:59 Intake Total 1611.67 / 1611.67 Output Total 1200 / 1200 Balance 411.67 / 411.67 Lab / Micro Data 12/11/23 07:45 Labs: Laboratory Results - last 24 hr 12/11/23 07:45: WBC 8.3, RBC 3.96 L, Hgb 10.6 L, Hct 33.5 L, MCV 84.6, MCH 26.8 L, MCHC 31.6 L, RDW Std Deviation 51.8 H, RDW Coeff of Sara 16.6 H, Plt Count 247, MPV 11.8, Immature Gran % (Auto) 0.700, Neut % (Auto) 68.1, Lymph % (Auto) 23.0, [place] % (Auto) 7.2, Eos % (Auto) 0.5, Baso % (Auto) 0.5, Absolute Neuts (auto) 5.6, Absolute Lymphs (auto) 1.91, Nucleated RBC % 0, Syphilis Total Ab Non-reactive, Blood Type A POSITIVE, Antibody Screen NEGATIVE 12/11/23 09:23: POC Glucose 79 12/11/23 10:34: POC Glucose 76 12/11/23 14:33: POC Glucose 76 12/11/23 15:55: POC Glucose 92 12/11/23 16:49: POC Glucose 126 H ROS Constitutional Constitutional: Reports systems reviewed and no addt'l complaints, except as d ocumented Cardiovascular Cardiovascular: Reports systems reviewed and no addt'l complaints, except as documented Respiratory/Chest Respiratory/Chest: Reports systems reviewed and no addt'l complaints, except as documented Gastrointestinal Gastrointestinal: Reports systems reviewed and no addt'l complaints, except as documented Physical Exam Const alert, oriented x3 and no apparent distress HEENT Head and Scalp: atraumatic Resp normal respiratory effort GI soft to palpation and non-tender Bimanual Exam - Vag & Uterus: uterus non-tender Uterus Palpation: uterus fundus firm (below Umbilicus) Assessment & Plan (1) Gestational diabetes mellitus (GDM): QUALIFIERS: Gestational diabetes mellitus control: diet-controlled Trimester: third trimester Qualified Code(s): O24.410 - Gestational diabetes mellitus in , diet controlled COMMENT: GCT 184: QID testing, dietitian referral. Growth US 36wk. well controlled (2) Vaginal delivery: COMMENT: SM IOL GDM boy Vinay PLAN: Plan s/p PPD # 1 1. routine post delivery care 2. breast feeding- support given 3. rh positive 4. rubella immune
[2023-12-12 08:27] VITALS: BP 129/72; PULSE 94
[2023-12-12 08:29] VITALS: BP 129/72; PULSE 94; RESP 16; TEMP 36.6
[2023-12-12 10:15] LABS: Bedside Glucose 83 mg/dL (74-106)
[2023-12-12 12:48] VITALS: BP 127/72; PULSE 80; RESP 16; TEMP 36.4
[2023-12-12 15:03] VITALS: BP 131/75; PULSE 82; RESP 17; TEMP 36.1
--- NOTE | 2023-12-16 15:25 | NURSING ---
12/15/23 Follow up questions asked in person at visit with Jill. Pt. denies s+s, milton MORSE. No questions or concerns. going well.
== END 2023-12-12 17:55 | disposition home or self-care (01) | DRG 805 ==
PROVIDERS: Admitting Provider Obstetrics & Gynecology; PCP Internal Medicine; Referring Provider Obstetrics & Gynecology; Visit Provider Obstetrics & Gynecology
DX: O24.420 Gestational diabetes mellitus in childbirth, diet controlled (principal); Z37.0 Single live birth; I77.74 Dissection of vertebral artery; O99.42 Diseases of the circulatory system complicating childbirth; O69.81X0 Labor and delivery complicated by cord around neck, without compression, not applicable or unspecified; O99.02 Anemia complicating childbirth; Z3A.40 40 weeks gestation of pregnancy; Z87.59 Personal history of other complications of pregnancy, childbirth and the puerperium
CPT/HCPCS: 59025; 59050; 82962; 85025; 86780; 86850; 86900; 86901; 99221; J7120; G0378; J2405

== ENCOUNTER 2023-12-13 09:30 | Outpatient (CLI) | payer BC, SELFPAY ==
--- NOTE | 2023-12-13 09:49 | OB.TRI.HP_ITS ---
HPI - General HPI Narrative HALLEY WELLS, is a 33 F who presents for visual changes and now mild frontal headache. bps at home were 110s over 80s, she denies any history of headache. now visual changes are gone but they were global blurry vision no focal deficits. Maternal Data Information LÁZARO Calculator Estimated Delivery Date Method Current WG Current Estimate 12/11/23 LMP (Certain) 40w 2d Other Estimates 12/10/23 Ultrasound #1 40w 3d PFSH PFSH Medical History (Updated 12/13/23 @ 00:05 by Wilda Abarca) Allergic reaction Anxiety Anxiety and depression Depression Encounter for screening for COVID-19 Fatigue Generalized anxiety disorder Gestational diabetes Headache Obsessional thoughts Oligohydramnios Panic attack Vertebral artery dissection Home Medications multivitamin no.47-iron fum 27 mg-folate no.1 1 mg-dha 300 mg capsule (PNV-DHA) cap PO 04/22/23 [History Last Taken Unknown] blood sugar diagnostic (Blood Glucose Test strips) #120 ea 09/23/23 [Rx Last Taken Unknown] blood-glucose meter #1 ea 09/23/23 [Rx Last Taken Unknown] lancets #200 ea 09/23/23 [Rx Last Taken Unknown] Allergy/AdvReac Type Severity Reaction Status Date / Time No Known Allergies Allergy Verified 12/13/23 09:42 Family History Mother Parkinson disease Grandfather Leukemia Surgical History H/O dilation and curettage [place] teeth extracted Social History adopted: No household members: spouse and children number of children: 1 current occupational status: employed 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 current occupational exposures/hazards: No pets and animals: No history of recent travel: Yes ([place], [place]) out of state: Yes out of country: No sexually active: Yes Smoking Status: Never smoker alcohol intake: never substance use type: does not use well-balanced diet: daily or most days caffeine: Yes Type: tea Number of servings: 1 eating out: 1-3 times/week during the past year weight has: remained stable what type of physical activity do you participate in: walking and weight training frequency: 3-4 times per week duration: 30-45 minutes/day simone/pentecostalism: Buddhist seatbelt use: always do you feel safe at home: Yes additional social history: Spouse Tim History 3 Elective abortions Hx Para 1 Spontaneous abortions 1 Hx # Term Pregnancies Ectopic pregnancies Hx # Pregnancies Multiple births # of living children 1 Past Pregnancies Del. Date Name GA/Weeks Outcome Route Bth Weight Gen Labor Lgth An esthesia Del Locatn Provider FOB 09/05/18 Ember 39 live - full term 7lbs 2oz Female 12 h ours epidural [facility] Dr. Castro Delivery Date: 09/05/18 Last Updated by: Emmy Lewis Anemic during . No issues during delivery. Visit Details Expected Delivery Route/Plan possible VAVDLabor Preferences- CB/BF classes: no labor support person: Meño labor intervention preferences: [] pain management options preferred: epidural cut cord/dad catch: yes : yes PP control planned: discussed discussed possible routes of delivery and associated risks: [] special requests: [] Plans Covid status: discussed Flu vaccine: discussed Tdap vaccine: declined Rhogam: na LARC form signed: yes movement and labor precautions reviewed. Problem list reviewed and updated with the most current plan of care details and appropriate orders placed. Relevant counseling for the gestational age provided. Continue routine care and follow up unless otherwise noted in visit notes/problem list details OB Flowsheet Initial Weight: 169 lb Date -?-?-?-?-?-?-?-?-?-?-?-?- EGA Weight BP Urine Prot -?-?-?-?-?-?-?-?-?-?-?-?- Glucose FHR FuHt Pres Dilation -?-?-?-?-?-?-?-?-?-?-?-?- Effaced St Visit Note 05/05/23 -?-?-?-?-?-?-?--?-?-?-?-?- 8w 4d 169 lb (+0 oz) 130/81 -?-?-?-?-?-?-?-?-?-?-?-?- 160 -?-?-?-?-?-?-?-?-?-?-?-?- SM- CRL 1.9 cm c ons with LMP 06/06/23 -?-?-?-?-?-?-?-?-?-?-?-?- 13w 1d 173 lb (+4 lb) 128/80 Negative -?-?-?-?-?-?-?-?-?-?-?-?- Negative 163 -?-?-?-?-?-?-?-?-?-?-?-?- JV- no lof, vagi nal bleeding, or cramping. CRL today consistent with established GA. undecided about NIPT, wants to decide at anatomy scan. 07/02/23 -?-?-?-?-?-?-?-?-?-?-?-?- 16w 6d 176 lb 4 oz (+7 lb 4 oz) 126/78 Negative -?-?-?-?-?-?-?-?-?-?-?-?- Negative 161 -?-?-?-?-?-?-?-?-?-?-?-?- MH-No VB, LOF. N o flutters yet. Nausea improved. Anatomy US 07/21. Will confirm MFM will do consult for VAD 07/30/23 -?-?-?-?-?-?-?-?-?-?-?-?- 20w 6d 180 lb 2 oz (+11 lb 2 oz) 127/83 Negative -?-?-?-?-?-?-?-?-?-?-?-?- Negative 151 -?-?-?-?-?-?-?-?-?-?-?-?- JV- no complaint s, anatomy us reviewed. no new news from MFM about VAD. plan to labor down. 08/25/23 -?-?-?-?-?-?-?-?-?-?-?-?- 24w 4d 183 lb 6 oz (+14 lb 6 oz) 119/74 Negative -?-?-?-?-?-?-?-?-?-?-?-?- Negative 138 24 -?-?-?-?-?-?-?-?-?-?-?-?- LC- no vb/ctx/lo f. good fm. 28 week labs ordered. no concerns. 09/22/23 -?-?-?-?-?-?-?-?-?-?-?-?- 28w 4d 187 lb 8 oz (+18 lb 8 oz) 112/64 Negative -?-?-?-?-?-?-?-?-?-?-?-?- Negative 143 28 -?-?-?-?-?-?-?-?-?-?-?-?- MH-No VB, LOF. G ood Fm. Discussed add FE, take PNV daily. GDM:qid testing, dietitian. Larc 10/07/23 -?-?-?-?-?-?-?-?-?-?-?-?- 30w 5d 188 lb 6 oz (+19 lb 6 oz) 123/75 Negative -?-?-?-?-?-?-?-?-?-?-?-?- Negative 135 30 -?-?-?-?-?-?-?-?-?-?-?-?- KW-no vb/lof/ctx . good fm. BS reviewed and nl range. 10/24/23 -?-?-?-?-?-?-?-?-?-?-?-?- 33w 1d 188 lb (+19 lb) 134/83 Negative -?-?-?-?--?-?-?-?-?-?-?-?- Negative 130 33 Breech -?-?-?-?-?-?-?-?-?-?-?-?- SM- no vb lof go od fm no regular ctx reviewed BS 11/07/23 -?-?-?-?-?-?-?-?-?-?-?-?- 35w 1d 189 lb (+20 lb) 121/83 Negative -?-?-?-?-?-?-?-?-?-?-?-?- Negative 140 35 Cephalic -?-?-?-?-?-?-?-?-?-?-?-?- SM- BS controlle d, head down now on palpation, growth US ordered. some contractions, anemia improving. 11/19/23 -?-?-?-?-?-?-?-?-?-?-?-?- 36w 6d 190 lb 2 oz (+21 lb 2 oz) 130/78 Negative -?-?-?-?-?-?-?-?-?-?-?-?- Negative 154 36 Cephalic 1 .2 -?-?-?-?-?-?-?-?-?-?-?-?- 60 -3 JV- GBS co llected. no lof, vaginal bleeding, or dec fm. 11/28/23 -?-?-?-?-?-?-?-?-?-?-?-?- 38w 1d 189 lb (+20 lb) 124/83 Negative -?-?-?-?-?-?-?-?-?-?-?-?- Negative 150 37 Cephalic 3 -?-?-?-?-?-?-?-?-?-?-?-?- 60 Sm- no v b lof good fm no regular ctx 12/05/23 -?-?-?-?-?-?-?-?-?-?-?-?- 39w 1d 190 lb (+21 lb) 125/79 Negative -?-?-?-?-?-?-?-?-?-?-?-?- Negative 140 38 Cephalic 3 -?-?-?-?-?-?-?-?-?-?-?-?- 60 -2 SM- no vb lof good fm no regular ctx BS controlled scheduled for iol ROS Constitutional Constitutional: Reports systems reviewed and no addt'l complaints, except as documented Eyes Eyes: Reports change in vision ENT HEENT: Reports headache(s); Denies dizziness Physical Exam Const alert and oriented x3 General Appearance: cooperative and comfortable; Negative for in distress HEENT moist oral mucous membranes Head and Scalp: normocephalic and atraumatic Face and Sinus: normal facial exam Eyes PERRL, EOMs intact bilaterally, conjunctivae normal and normal visual ching by confrontation Neuro moves all extremities and no focal motor deficits Neuro Narrative: CN2-12 intact Motor Exam: strength 5/5 throughout Assessment & Plan (1) Vaginal delivery: COMMENT: SM IOL GDM boy [place] PLAN: Plan preeclampsia workup, discussed with ER physician, based on presentation no head imaging indicated at this time, await lab evaluation.
--- NOTE | 2023-12-13 09:49 | OB.TRI.NOTE ---
HPI - General HPI Narrative HALLEY WELLS, is a 33 F who presents for visual changes and now mild frontal headache. bps at home were 110s over 80s, she denies any history of headache. now visual changes are gone but they were global blurry vision no focal deficits. Maternal Data Information LÁZARO Calculator Estimated Delivery Date Method Current WG Current Estimate 12/11/23 LMP (Certain) 40w 2d Other Estimates 12/10/23 Ultrasound #1 40w 3d PFSH PFSH Medical History (Updated 12/13/23 @ 00:05 by Wilda Abarca) Allergic reaction Anxiety Anxiety and depression Depression Encounter for screening for COVID-19 Fatigue Generalized anxiety disorder Gestational diabetes Headache Obsessional thoughts Oligohydramnios Panic attack Vertebral artery dissection Home Medications multivitamin no.47-iron fum 27 mg-folate no.1 1 mg-dha 300 mg capsule (PNV-DHA) cap PO 04/22/23 [History Last Taken Unknown] blood sugar diagnostic (Blood Glucose Test strips) #120 ea 09/23/23 [Rx Last Taken Unknown] blood-glucose meter #1 ea 09/23/23 [Rx Last Taken Unknown] lancets #200 ea 09/23/23 [Rx Last Taken Unknown] Allergy/AdvReac Type Severity Reaction Status Date / Time No Known Allergies Allergy Verified 12/13/23 09:42 Family History Mother Parkinson disease Grandfather Leukemia Surgical History H/O dilation and curettage [place] teeth extracted Social History adopted: No household members: spouse and children number of children: 1 current occupational status: employed 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 current occupational exposures/hazards: No pets and animals: No history of recent travel: Yes ([place], [place]) out of state: Yes out of country: No sexually active: Yes Smoking Status: Never smoker alcohol intake: never substance use type: does not use well-balanced diet: daily or most days caffeine: Yes Type: tea Number of servings: 1 eating out: 1-3 times/week during the past year weight has: remained stable what type of physical activity do you participate in: walking and weight training frequency: 3-4 times per week duration: 30-45 minutes/day simone/hinduism: Buddhist seatbelt use: always do you feel safe at home: Yes additional social history: Spouse Tim History 3 Elective abortions Hx Para 1 Spontaneous abortions 1 Hx # Term Pregnancies Ectopic pregnancies Hx # Pregnancies Multiple births # of living children 1 Past Pregnancies Del. Date Name GA/Weeks Outcome Route Bth Weight Gen Labor Lgth Anesthesia Del Locatn Provider FOB 09/05/18 Ember 39 live - full term 7lbs 2oz Female 12 hours epidural [facility] Dr. Castro Delivery Date: 09/05/18 Last Updated by: Emmy Lewis Anemic during . No issues during delivery. Visit Details Expected Delivery Route/Plan possible VAVDLabor Preferences- CB/BF classes: no labor support person: Meño labor intervention preferences: [] pain management options preferred: epidural cut cord/dad catch: yes : yes PP control planned: discussed discussed possible routes of delivery and associated risks: [] special requests: [] Plans Covid status: discussed Flu vaccine: discussed Tdap vaccine: declined Rhogam: na LARC form signed: yes movement and labor precautions reviewed. Problem list reviewed and updated with the most current plan of care details and appropriate orders placed. Relevant counseling for the gestational age provided. Continue routine care and follow up unless otherwise noted in visit notes/problem list details OB Flowsheet Initial Weight: 169 lb Date <del>?</del> EGA Weight BP Urine Prot <del>?</del> Glucose FHR FuHt Pres Dilation <del>?</del> Effaced St Visit Note 05/05/23 <del>?</del> 8w 4d 169 lb (+0 oz) 130/81 <del>?</del> 160 <del>?</del> SM- CRL 1.9 cm cons with LMP 06/06/23 <del>?</del> 13w 1d 173 lb (+4 lb) 128/80 Negative <del>?</del> Negative 163 <del>?</del> JV- no lof, vaginal bleeding, or cramping. CRL today consistent with established GA. undecided about NIPT, wants to decide at anatomy scan. 07/02/23 <del>?</del> 16w 6d 176 lb 4 oz (+7 lb 4 oz) 126/78 Negative <del>?</del> Negative 161 <del>?</del> MH-No VB, LOF. No flutters yet. Nausea improved. Anatomy US 07/21. Will confirm MFM will do consult for VAD 07/30/23 <del>?</del> 20w 6d 180 lb 2 oz (+11 lb 2 oz) 127/83 Negative <del>?</del> Negative 151 <del>?</del> JV- no complaints, anatomy us reviewed. no new news from MFM about VAD. plan to labor down. 08/25/23 <del>?</del> 24w 4d 183 lb 6 oz (+14 lb 6 oz) 119/74 Negative <del>?</del> Negative 138 24 <del>?</del> LC- no vb/ctx/lof. good fm. 28 week labs ordered. no concerns. 09/22/23 <del>?</del> 28w 4d 187 lb 8 oz (+18 lb 8 oz) 112/64 Negative <del>?</del> Negative 143 28 <del>?</del> MH-No VB, LOF. Good Fm. Discussed add FE, take PNV daily. GDM:qid testing, dietitian. Larc 10/07/23 <del>?</del> 30w 5d 188 lb 6 oz (+19 lb 6 oz) 123/75 Negative <del>?</del> Negative 135 30 <del>?</del> KW-no vb/lof/ctx. good fm. BS reviewed and nl range. 10/24/23 <del>?</del> 33w 1d 188 lb (+19 lb) 134/83 Negative <del>?</del> Negative 130 33 Breech <del>?</del> SM- no vb lof good fm no regular ctx reviewed BS 11/07/23 <del>?</del> 35w 1d 189 lb (+20 lb) 121/83 Negative <del>?</del> Negative 140 35 Cephalic <del>?</del> SM- BS controlled, head down now on palpation, growth US ordered. some contractions, anemia improving. 11/19/23 <del>?</del> 36w 6d 190 lb 2 oz (+21 lb 2 oz) 130/78 Negative <del>?</del> Negative 154 36 Cephalic 1.2 <del>?</del> 60 -3 JV- GBS collected. no lof, vaginal bleeding, or dec fm. 11/28/23 <del>?</del> 38w 1d 189 lb (+20 lb) 124/83 Negative <del>?</del> Negative 150 37 Cephalic 3 <del>?</del> 60 Sm- no vb lof good fm no regular ctx 12/05/23 <del>?</del> 39w 1d 190 lb (+21 lb) 125/79 Negative <del>?</del> Negative 140 38 Cephalic 3 <del>?</del> 60 -2 SM- no vb lof good fm no regular ctx BS controlled scheduled for iol ROS Constitutional Constitutional: Reports systems reviewed and no addt'l complaints, except as documented Eyes Eyes: Reports change in vision ENT HEENT: Reports headache(s); Denies dizziness Physical Exam Const alert and oriented x3 General Appearance: cooperative and comfortable; Negative for in distress HEENT moist oral mucous membranes Head and Scalp: normocephalic and atraumatic Face and Sinus: normal facial exam Eyes PERRL, EOMs intact bilaterally, conjunctivae normal and normal visual ching by confrontation Neuro moves all extremities and no focal motor deficits Neuro Narrative: CN2-12 intact Motor Exam: strength 5/5 throughout Assessment & Plan (1) Vaginal delivery: COMMENT: SM IOL GDM boy [place] PLAN: Plan preeclampsia workup, discussed with ER physician, based on presentation no head imaging indicated at this time, await lab evaluation.
[2023-12-13 10:05] VITALS: BP 129/78; PULSE 101; RESP 16
[2023-12-13 10:10] VITALS: BMI 26.6
[2023-12-13] MEDS: Acetaminophen 500 MG Tablet 1000 MG PO (10:15)
[2023-12-13 10:20] VITALS: BP 117/72; PULSE 85
[2023-12-13 10:28] LABS: Hematocrit 33.6 % (37-47); Hemoglobin 10.9 g/dL (12.0-15.0); Mean Corp Hgb Conc 32.4 g/dL (32-36); Mean Corpuscular Hgb 27.5 pg (27.0-32.0); Mean Corpuscular Volume 84.8 fL (81-99); Mean Platelet Vol. 11.2 fl (6.2-12.0); Platelet Count 231 K/mm3 (150-450); RBC Distribution Width CV 16.7 % (11.6-14.6); Red Blood Count 3.96 M/mm3 (4.2-5.4); White Blood Count 10.4 K/mm3 (4.4-11.0)
[2023-12-13 10:35] VITALS: BP 119/73; PULSE 88
[2023-12-13 10:50] VITALS: BP 118/70; PULSE 83; RESP 16
[2023-12-13 10:53] LABS: AST(SGOT) 26 U/L (15-37); Alanine Aminotransfer ALT/SGPT 22 U/L (13-56); Creatinine, Serum 0.49 mg/dL (0.55-1.02); EST Glomerular Filtration Rate 155 mL/min (>60); Est Glom Filt Rate - Afr Amer 188 mL/min (>60); Estimated Creatinine Clearance 176.43 ml/min; Uric Acid 3.8 mg/dL (2.6-6.0)
[2023-12-13 11:04] LABS: LDH 209 U/L (84-246); Uric Acid 3.8 mg/dL (2.6-6.0)
[2023-12-13 11:05] VITALS: BP 119/71; PULSE 81
== END 2023-12-13 11:35 | disposition home or self-care (01) ==
LOC: WPOUT 09:40 → WP 09:40
PROVIDERS: PCP Internal Medicine; Referring Provider Obstetrics & Gynecology; Visit Provider Obstetrics & Gynecology
DX: O80 Encounter for full-term uncomplicated delivery (principal); Z3A.40 40 weeks gestation of pregnancy; Z37.0 Single live birth
CPT/HCPCS: 36415; 82565; 83615; 84450; 84460; 84550; 85027; 99221; G0378

== ENCOUNTER → 2024-01-19 | Outpatient (CLI) | payer BC, SELFPAY ==
[2024-01-23 19:07] LABS: HPV APTIMA, High Risk Negative (Negative)
== END | disposition home or self-care (01) ==
LOC: LABSPEC 16:42
PROVIDERS: PCP Internal Medicine; Referring Provider Obstetrics & Gynecology; Visit Provider Obstetrics & Gynecology
DX: Z12.4 Encounter for screening for malignant neoplasm of cervix (principal)
CPT/HCPCS: 87624; 88175; G0145